=== PATIENT | male | born 1965 | race Caucasian/White ===

== ENCOUNTER 2021-10-05 07:50 | Outpatient (RCR) | payer OTHER, SELFPAY | END 2021-12-16 15:43 | disposition home or self-care (01) | PROVIDERS: PCP Family Medicine; Visit Provider Family Medicine | DX: M25.511 Pain in right shoulder (principal); M25.512 Pain in left shoulder; Z51.89 Encounter for other specified aftercare | CPT/HCPCS: 97112; 97161 ==

== ENCOUNTER 2021-12-24 14:59 | Emergency (ER) | payer OTHER, SELFPAY ==
[2021-12-24 15:06] VITALS: BP 131/75; PULSE 68; RESP 18; TEMP 36.4; O2SAT 97; BMI 30.5
--- NOTE | 2021-12-24 15:23 | ED.GENADULT ---
HPI - General Adult General Time Seen by Provider: 15:24 Date Seen: 12/24/21 Chief complaint: Extremity Pain/Injury, Lower Stated complaint: Possible Blood Clot Time Seen by Provider: 12/24/21 15:11 Source: patient and RN notes reviewed Mode of arrival: ambulatory Limitations: no limitations History of Present Illness HPI narrative: Patient is a 56-year-old male coming in with concern of possible DVT. He had surgery for varicose veins with what sounds like to be the standard stab phlebectomy and was subsequently diagnosed with a right lower extremity superficial thrombophlebitis per report. He was told to go on aspirin and they were planning on doing a repeat ultrasound in 1 weeks time which would be tomorrow. He states there was concern that this was close to going into the deep system. He describes it at his ?main vein?. He feels that the swelling in the cord swelling/pain has increased. He has had no fevers. He has had no respiratory symptoms such as shortness of breath, difficulty breathing or any chest pain. He did recently have a cold but has no complications or any ongoing concerns with that. He is wanting a repeat ultrasound of his right lower extremity. complaint: Superficial DVT, concern for extension into DVT Related Data Home Medications Medication Instructions Recorded Confirmed aspirin 81 mg chewable tablet 81 mg PO DAILY 09/14/21 12/07/21 multivitamin (Multiple Vitamins 1 tab PO QDAY 09/14/21 12/07/21 tablet) omega 6-ktq-wzz-fish oil 100 1 cap PO QDAY 09/14/21 12/07/21 mg-160 mg-1,000 mg capsule (Fish Oil) Previous Rx's Medication Instructions Recorded naproxen 500 mg tablet 500 mg PO BID #60 tabs 09/15/21 Allergies Allergy/AdvReac Type Severity Reaction Status Date / Time penicillin V Allergy Mild Urticaria, Verified 12/07/21 09:35 numb lips cephalexin AdvReac Intermediate Tiredness Verified 12/07/21 09:35 maple tree buds Allergy Mild Sneezing, Uncoded 12/07/21 09:35 other Review of Systems Status of ROS: Reports: 6 or more systems reviewed and unremarkable except as noted in History and below [facility] Medical History (Updated 12/24/21 @ 17:02 by Tana Holder MD) Dyslipidemia Hearing loss Tubular adenoma of colon (2018) Surgical History (Updated 12/07/21 @ 10:11 by Joni Reid MD) History of arthroscopy of left knee History of colonoscopy History of nasal septoplasty (2000) History of toe surgery History of varicose vein ligation (2010) Family History (Updated 09/08/21 @ 16:16 by Radha Nieto) Maternal Grandfather Stroke Mother Colon cancer, Onset Age: 78 Non-Hodgkin's lymphoma Son Heart disease Other Skin cancer Social History (Updated 09/08/21 @ 16:17 by Radha Nieto) Narrative: Exercises daily- physical work, free weights, sit ups , 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, 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 Non-smoker Rarely consumes alcohol Smoking Status: Never smoker Do you use any of these nicotine containing products: None Second hand tobacco smoke exposure: No How often do you have a drink containing alcohol: never How often do you have six or more drinks on one occasion: Never AUDIT-C Alcohol total score: 0 Non-prescribed substance use: denies use Exam Const: Vital Signs, click to edit/add: Vital Signs - 24 hr 12/24/21 15:06 Temperature 97.6 F Pulse Rate [Right Pulse Oximeter] 68 Respiratory Rate 18 Blood Pressure [Ri ght Upper Arm] 131/75 Pulse Oximetry 97 Oxygen Delivery Me thod Room Air Documenting provider has reviewed patient's vital signs: yes Common normals: no apparent distress, oriented x3, no limitations, healthy appearing, alert and well nourished General appearance: cooperative, comfortable and well kempt HENMT: Common normals: normocephalic and head/scalp atraumatic Head and scalp: normocephalic and atraumatic Eye: Common normals: PERRL, EOMs intact bilaterally, conjunctivae normal and no scleral icterus Conjunctiva: conjunctiva(e) normal Pupil: PERRL Neck & C-Spine: Common normals: no JVD Resp: Common normals: normal respiratory effort, no retractions, no use of accessory muscles and clear to auscultation bilaterally Auscultation: clear to auscultation bilaterally Cardio: Common normals: no JVD, regular rate, regular rhythm, S1 normal heart sound, S2 normal heart sound, no gallops, no clicks and no murmurs Rate: regular rate Rhythm: regular rhythm Heart sounds: S1 normal and S2 normal Extremity: Other: He has a palpable superficial cord in the right medial mid thigh. He has no calf tenderness, negative Homans sign. Right lower extremity looks to be a little bit more swollen than the left but not pitting edema. He has multiple small scabs scattered throughout both his lower extremities, none with concerning erythema or any evidence of any secondary infection. Neuro: Common normals: oriented x3 Sensorium/orientation: alert Psych: Appearance: well kempt Course Reevaluation(s) Reevaluation #1: Reviewed ultrasound with patient. Patient had a radiofrequency ablation of the greater saphenous before on the right leg. That was about 10 years ago. He did pull up his ultrasound report from Tuesday and the occlusion of the greater saphenous into the common femoral was there. His right lower extremity is only showing superficial thrombophlebitis, no DVT. He has no acute DVT. Time: 17:00 Vital Signs Vital signs: Initial Vital Signs Temperature 97.6 F 12/24/21 15:06 Temperature Source Temporal Artery Scan 12/24/21 15:06 Pulse Rate 68 12/24/21 15:06 Respiratory Rate 18 12/24/21 15:06 Blood Pressure 131/75 12/24/21 15:06 Blood Pressure Mean 93 12/24/21 15:06 Blood Pressure Position Sitting 12/24/21 15:06 Pulse Oximetry 97 12/24/21 15:06 Oxygen Delivery Method 12/24/21 15:06 Vital Signs Temperature 97.6 F 12/24/21 15:06 Pulse Rate 68 12/24/21 15:06 Respiratory Rate 18 12/24/21 15:06 Blood Pressure 131/75 12/24/21 15:06 Pulse Oximetry 97 12/24/21 15:06 Oxygen Delivery Method 12/24/21 15:06 Temperature 97.6 F 12/24/21 15:06 Pulse Rate 68 12/24/21 15:06 Respiratory Rate 18 12/24/21 15:06 Blood Pressure 131/75 12/24/21 15:06 Pulse Oximetry 97 12/24/21 15:06 Oxygen Delivery Method 12/24/21 15:06 Medical Decision Making Imaging Data Venous US: Attestation: I have reviewed the pertinent imaging results. Radiologist's impression: Patient: [facility] Facility:[facility] Patient ID:?[id number] :?1965 Study:?US Extremity Right LEV-12/24/2021 4:15:55 PM Ordering Physician:Helen Fajardo Final Report: INDICATION: Right calf pain. Stab phlebectomies of the right calf 1 week ago. Remote history of treatment of the GSV. COMPARISON: None available. TECHNIQUE: A compression venous ultrasound exam was performed of the right lower extremity using espinoza-scale imaging, color Doppler and spectral Doppler analysis. FINDINGS: Sonographic imaging of the right lower extremity demonstrates normal compressibility and color Doppler venous blood flow within the femoral and deep femoral veins. At a lower level, the popliteal, peroneal, and posterior tibial veins also show normal compressibility and color Doppler venous blood flow. There is thrombus throughout the right greater saphenous vein in the thigh with a 1.4 cm segment of thrombus extending into the common femoral vein. Multiple thrombosed superficial varicosities in the right anterior calf. Limited imaging of the contralateral groin demonstrates a normal spectral waveform and color Doppler venous blood flow within the left common femoral vein. IMPRESSION: 1. Thrombosed right greater saphenous vein in the thigh, with a 1.4 cm segment of thrombus extending into the common femoral vein. 2. Multiple thrombosed superficial varicosities in the right anterior calf. 3. No other evidence of acute DVT in the right lower extremity. 4. Findings discussed with Domitila Leung at 4:37 p.m. on 12/24/2021. Dictated by Latonya Krishnamurthy MD @ 12/24/2021 4:34:52 PM (Electronic Signature) Critical Care Time Critical Care Time Critical Care Time: No Discharge Plan Discharge Clinical Impression: Postoperative superficial thrombophlebitis of lower extremity Condition: Stable Instructions: Superficial Thrombophlebitis (ED) Additional Instructions: Continue on aspirin and continue your postoperative instructions per your surgeon. Contact your surgeon in the morning and see if the knee due to have the ultrasound done tomorrow or if they are okay with the report from our ultrasound done this evening. Follow activity restrictions/instructions as per your surgeon. Prescriptions: No Action aspirin 81 mg tablet,chewable 81 mg PO DAILY multivitamin [Multiple Vitamins] Tablet 1 tab PO QDAY Fish Oil 100-160-1,000 mg capsule 1 cap PO QDAY naproxen 500 mg tablet 500 mg PO BID Qty: 60 5RF Follow Up/Referrals: Joni Reid MD [Primary Care Provider] - Stand Alone Forms: [employer] Info Instructions
--- NOTE | 2021-12-24 15:27 | CRLHL7_ITS ---
For Patients: As a result of the Century Cures Act, medical imaging exams and procedure reports are released immediately into your electronic medical record. You may view this report before your referring provider. If you have questions, please contact your health care provider. INDICATION: Right calf pain. Stab phlebectomies of the right calf 1 week ago. Remote history of treatment of the GSV. COMPARISON: None available. TECHNIQUE: A compression venous ultrasound exam was performed of the right lower extremity using espinoza-scale imaging, color Doppler and spectral Doppler analysis. FINDINGS: Sonographic imaging of the right lower extremity demonstrates normal compressibility and color Doppler venous blood flow within the femoral and deep femoral veins. At a lower level, the popliteal, peroneal, and posterior tibial veins also show normal compressibility and color Doppler venous blood flow. There is thrombus throughout the right greater saphenous vein in the thigh with a 1.4 cm segment of thrombus extending into the common femoral vein. Multiple thrombosed superficial varicosities in the right anterior calf. Limited imaging of the contralateral groin demonstrates a normal spectral waveform and color Doppler venous blood flow within the left common femoral vein. IMPRESSION: 1. Thrombosed right greater saphenous vein in the thigh, with a 1.4 cm segment of thrombus extending into the common femoral vein. 2. Multiple thrombosed superficial varicosities in the right anterior calf. 3. No other evidence of acute DVT in the right lower extremity. 4. Findings discussed with Domitila Leung at 4:37 p.m. on 12/24/2021. Dictated by Latonya Krishnamurthy MD @ 12/24/2021 4:34:52 PM (Electronically Signed)
--- OUTSIDE RECORDS SUMMARY | 2021-12-24 15:40 | XMS_ITS | Clinical Summary ---
:1965 Author Organization [facility] [place] [address] Care Team Providers Name Role Phone Joni Reid MD Primary Care Provider [phone] Allergies Active Allergy Reactions Severity Noted Date Comments Amoxicillin Edema 08/19/2011 Pt gets facial edema and numbness Cephalexin *Unknown 07/02/2021 Drowsy for 3 da ys Unlisted Allergen Other - Describe In 02/05/2016 Dig estive issues (Include Detail In Comment Field Comments) Medications Medication Sig Dispensed Refills Start Date End Date Status multivitamin (MVI) Take 1 tablet by 0 08/19/2011 Active tablet mouth once daily. CrutchIndications: For home use. 2 Each 0 07/03/2021 Active Complex tear of medial meniscus of left knee as current injury, initial encounter acetaminophen Take 1-2 Tablets 60 Tablet 1 07/03/2021 Active (TYLENOL EXTRA (500-1,000 mg) by STRGTH) 500 mg mouth every 6 hours tabletIndications: if needed for Pain. Complex tear of Max acetaminophen medial meniscus of dose: 4000mg in 24 left knee as current hrs. injury, initial encounter oxyCODONE Take 1-2 Tablets 20 Tablet 0 07/03/2021 Ac tive (ROXICODONE) 5 mg (5-10 mg) by mouth immediate release every 4 hours if tabletIndications: needed for Pain. Complex tear of medial meniscus of left knee as current injury, initial encounter Active Problems Problem Noted Date Venous insufficiency right leg 08/19/2011 Venous stasis dermatitis right leg 08/19/2011 Family History Medical History Relation Name Comments Cancer-colon Mother Relation Name Status Comments Mother Social History Tobacco Use Types Packs/Day Years Used Date Never Smoker Smokeless Tobacco: Never Used Tobacco Cessation: Counseling Given: Yes Alcohol Use Standard Drinks/Week Comments Yes 0 (1 standard drink = 0.6 oz pure alcoho l) very little Alcohol Habits Answer Date Recorded How often do you have a drink containing alcohol? Not asked How many drinks containing alcohol do you have on a Not aske d typical day when you are drinking? How often do you have six or more drinks on one occasion? No t asked Comment: very little 02/05/2016 Sex Assigned at Date Recorded Not on file Obstetrics History Last Filed Vital Signs Vital Sign Reading Time Taken Comments Blood Pressure 142/86 07/04/2021 6:53 PM CDT Pulse 61 07/04/2021 6:53 PM CDT Temperature 36.5 ??C (97.7 ??F) 07/04/2021 5:32 PM CDT Respiratory Rate 16 07/04/2021 6:53 PM CDT Oxygen Saturation 96% 07/04/2021 6:53 PM CDT Inhaled Oxygen Concentration - - Weight 104.3 kg (230 lb) 07/04/2021 5:32 PM CDT Height 182.9 cm (6') 07/04/2021 5:32 PM CDT Body Mass Index 31.19 07/04/2021 5:32 PM CDT Plan of Treatment Health Maintenance Due Date Last Done Comments Tdap 07/21/1978 Depression screening for age 12+ 1979 Hepatitis C screening for age 0507/21/1985 18-79 Tetanus booster 1987 Colonoscopy through age 75 07/21/2012 Lipids for age 45-75 07/21/2012 BMI (ht and wt on same day) for 02/04/2017 02/05/2016 age 18+ Zoster (shingles) series for age 0507/21/2017 50+ (1 of 2) COVID-19 vaccine series (5 - 08/03/2021 06/08/2021, 021, Booster for Moderna series) 06/06/2020, Addition al history exists Influenza for age 50-64 10/22/2021 Results Not on filefrom Last 3 Months Insurance Payer Benefit Plan / Subscriber ID Effective Dates Phone Addre ss Type Group [facility] [id number] 2018-Present [address] [address] [place] [address] Advance Directives Latest Code Status on File Code Status Date Activated Date Inactivated Comments Full Code 07/03/2021 7:41 AM 07/03/2021 1:28 PM Admitted for surgical management, assume full code during operative period Code Status Discussion: Not Discussed Care Teams Hearing Aid Specialist Relationship Specialty Start Date End Date Joni Reid MD PCP - General Family Practice 06/25/211999 [place] [address]
--- OUTSIDE RECORDS SUMMARY | 2021-12-24 15:41 | XMS_ITS | Encounter Summary ---
:1965 Author Organization [facility] Address [address] [place] [address] Care Team Providers Name Role Phone Non Pn, Clinician MD Primary Care Provider Unavailable Reason for Visit Reason Comments Post Op Exam Left knee Encounter Details Date Type Department Care Team Description 07/13/2021 Office Visit [facility] Antonio Phelan, Postop check (Primary Orthopaedics & Sports MD Dx) Medicine [address] [place] [address] [place] [id number] Social History Tobacco Use Types Packs/Day Years Used Date Smoking Tobacco: Never Sex Assigned at Date Recorded Not on file documented as of this encounter Progress Notes Antonio Phelan MD - 07/13/2021 12:00 AM CDT NAME: ROLF SANTIAGO CSN: [id number] CLINIC NOTE DATE OF SERVICE: 07/13/2021 : 1965 Orthopedic Surgery Postoperative Visit PROCEDURE PERFORMED: Left knee arthroscopy and partial medial meniscectomy. DATE OF OPERATION: 07/03/2021 INTERVAL HISTORY: The patient presents today as an unexpected walk-in for left knee pain. His [facility], and due to some swelling, he was hoping to be seen today. The patient did have some drainage from his incision site for the 1st 24 hours after surgery at [facility]. It has since then been dry. He denies any fevers or chills. He thinks that over the weekend, his knee has gotten more swollen and he has had a difficult time bending it. He has been ableto bear weight without difficulty. His wound has been dry. He denies any erythema. EXAM: The patient is alert, oriented, in no acute distress. He has nonlabored breathing at rest. On examination of the patient's left knee, he has some scarring over his anterior medial portal site, but no tenderness to palpation of this area, no erythema and no drainage. His lateral portal site is normal. He has range of motion from 2 degrees to 120 degrees with pain, actively to approximately 100 degrees prior to onset of pain. He has mild medial and lateral joint line tenderness to palpation. He is able to perform a straight leg raise with a 5-degree extensor lag. He is able to bear weight with no discomfort. He has 2+ medial and lateral patellar glide with a negative patellar grind test. He has a moderate effusion. ASSESSMENT: A 55-year-old male with scarring over his medial portal site and activity-related postoperative effusion. I have no concerns for infection based on today's clinical exam and his history. PLAN: I discussed with the patient his above diagnosis and treatment options. I have recommended we initiate some Aleve to help with the swelling. He will also ice and elevate his leg as much as possible for the next 3-5 days to help calm down his knee. I suspect that his increase in pain is activity-related. He will continue with physical therapy. He will follow up with me at the 6 week postoperative visit, sooner if any concerns arise. Warning signs were provided. MD STEPHANIE TINOCO/CRUZ /[id number] documented in this encounter Plan of Treatment Upcoming Encounters Date Type Specialty Care Team Description 12/25/2021 Appointment Vascular Surgery Gloria Quinones MD [id number] [facility] [address] [id number] (Wo rk) 12/25/2021 Appointment Vascular Surgery Nurse, [id number] Vsurg documented as of this encounter Visit Diagnoses Diagnosis Postop check - Primary Follow-up examination, following unspeci fied surgery documented in this encounter Care Teams Car Electronics Installer Relationship Specialty Start Date End Date Non Pn, Clinician, PCP - General 05/20/21 [place] [address] documented as of this encounter
--- OUTSIDE RECORDS SUMMARY | 2021-12-24 15:41 | XMS_ITS | Encounter Summary ---
:1965 Author Organization [facility] Address [address] [place] [address] Care Team Providers Name Role Phone Non Pn, Clinician MD Primary Care Provider Unavailable Reason for Referral Procedure/Equipment (Routine) - Incomplete Specialty Diagnoses / Procedures Referred By Contact Refer red To Contact Diagnoses Varicose veins of both lower extremities with complications Paulina Gutierrez, Procedures VL US Lower Extremity Bilat Venous Reflux [facility] [address] [place], [place] [address] Referral ID Status Reason Start Date Expiration Date Visits V isits Requested Authorized [id number] Incomplete 09/21/2021 12/21/2022 1 1 Reason for Visit Procedure/Equipment (Routine) - Incomplete Specialty Diagnoses / Procedures Referred By Contact Refer red To Contact Diagnoses Varicose veins of both lower extremities with complications Paulina Gutierrez, Procedures VL US Lower Extremity Bilat Venous Reflux [facility] [address] [place], [place] [address] Referral ID Status Reason Start Date Expiration Date Visits V isits Requested Authorized [id number] Incomplete 09/21/2021 12/21/2022 1 1 Encounter Details Date Type Department Care Team Description 11/09/2021 Hospital Encounter Heart & Vascular Paulina Gutierrez Varicose veins of Center Vascular LUCY Yeager CNP both lower Lab [address] [facility] [place] [place], [address] [place] [address] Social History Tobacco Use Types Packs/Day Years Used Date Smoking Tobacco: Never Sex Assigned at Date Recorded Not on file documented as of this encounter Medications at Time of Discharge Medication Sig Dispensed Refills Start Date End Date acetaminophen (TYLENOL) 500 Take 500-1,000 mg by 0 07/03/2021 MG tablet mouth. naproxen (NAPROSYN) 500 MG Take 1 Tablet (500 60 Tablet 1 0 07/13/2021 tablet mg) by mouth two times daily as needed for Pain. traMADol (ULTRAM) 50 MG Take 1 Tablet (50 10 Tablet 0 12/14 tablet mg) by mouth every 6 hours as needed. UNKNOWN MEDICATION Indications: PN: 0 06/14/2006 documented as of this encounter Plan of Treatment Upcoming Encounters Date Type Specialty Care Team Description 12/25/2021 Appointment Vascular Surgery Gloria Quinones MD [address] [place] [id number] (Wo rk) 12/25/2021 Appointment Vascular Surgery Nurse, [id number] Jason documented as of this encounter Procedures Procedure Name Priority Date/Time Associated Diagnosis Comme nts [facility] LOWER Routine 11/09/2021 9:10 AM Varicose veins of both Results for this EXTREMITY BILAT CDT lower extremities with pr ocedure are in VENOUS REFLUX complications the results section. 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 Right popliteal vein incompetence. Chronic non-occlusive superficial thromb ophlebitis within the right great saphenous vein at the proximal thigh and in a varicose vein at the mid thigh. Left saphenofemoral junction incompetenc e. Left common femoral, femoral and poplite al vein incompetence. There are multiple incompetent varicosit ies within the right and left lower extremities. No evidence of right or left lower extre mity deep vein thrombosis. Narrative 11/11/2021 7:32 AM CDT Indication: Varicose veins History of right great saphenous vein ra diofrequency ablation at outside facility. A duplex ultrasound study using Doppler was performed, to evaluate the bilateral lower extremity veins for valv ular incompetence with the patient in a reverse Trendelenburg position. RIGHT LOWER EXTREMITY The great saphenous vein diameters: saph enofemoral junction: 7.9mm, immediately after the saphenofemoral denny ction: 8.7mm, proximal thigh: 4.0mm, proximal calf: 2.6mm. The great s aphenous vein is incompetent from the saphenofemoral junction to the proxi mal thigh. The time of incompetence is greater than 500 millise conds in length. The great saphenous vein is absent from the mid th igh to the knee. There is evidence of chronic non-occlusi ve superficial thrombophlebitis within the great saphenous vein at the p roximal thigh. There is a competent posterior accessory great saphenous vein (3.4mm) draining into the saphenofemoral junctio n. The small saphenous vein at the proximal calf measures 3.1mm. The small saphenous vein is competent in its entir ety. There is no evidence of incompetent perf orator veins at any level. There is evidence of multiple incompeten t varicose veins with the largest measuring 9.0mm. The time of incompetenc e is greater than 500 milliseconds. There is evidence of chronic non-occlusi ve superficial thrombophlebitis within a varicose vein at the mid thigh. The small saphenous vein is fully compre ssible with no evidence of thrombus. The gastrocnemius veins were segmentally visualized and are fully compressible where seen. The popliteal vein is incompetent and fr ee of thrombus. The remainder of the deep venous system is competent and free of thrombus. LEFT LOWER EXTREMITY The great saphenous vein diameters: saph enofemoral junction: 7.2mm, immediately after the saphenofemoral denny ction: 6.8mm, proximal thigh: 4.0mm, knee: 2.9mm. The saphenofemoral j unction is incompetent. The time of incompetence is greater than 500 mill iseconds in length. The remainder of the great saphenous vein is competent . There is a competent anterior accessory great saphenous vein (3.1mm) draining into the saphenofemoral junctio n. The small saphenous vein diameters: saph enopopliteal junction: 2.3mm, immediately after the saphenopopliteal j unction: 2.6mm. The saphenopopliteal junction and small saph enous vein are both competent. There is no evidence of incompetent perf orator veins at any level. There is evidence of multiple incompeten t varicose veins with the largest measuring 6.7mm. The time of incompetenc e is greater than 500 milliseconds. The great and small saphenous veins are fully compressible with no evidence of thrombus. The gastrocnemius veins were segmentally visualized and are fully compressible where seen. The common femoral, femoral and poplitea l veins are incompetent and free of thrombus. The remainder of the deep v enous system is competent and free of thrombus. Paulina Gutierrez [employer], SOCIAL PSYCHOLOGIST RAD VASCULAR US documented in this encounter Visit Diagnoses Diagnosis Varicose veins of both lower extremities with complications documented in this encounter Care Teams Golf Sales Manager Relationship Specialty Start Date End Date Non Pn, Clinician, PCP - General 05/20/21 [place] [address] documented as of this encounter
--- OUTSIDE RECORDS SUMMARY | 2021-12-24 15:41 | XMS_ITS | Encounter Summary ---
:1965 Author Organization [employer] [facility] Address [address] [place] [address] Care Team Providers Name Role Phone Non Pn, Clinician MD Primary Care Provider Unavailable Encounter Details Date Type Department Care Team Description 07/21/2021 Notes/Orders [facility] - Thomas Mccallum, PT Physical Therapy [address] [facility] [address] [place] [address] [place] [address] [phone] Social History Tobacco Use Types Packs/Day Years Used Date Smoking Tobacco: Never Sex Assigned at Date Recorded Not on file documented as of this encounter Progress Notes Thomas Mccallum, PT - 07/21/2021 11:59 PM CDT [facility] Discharge Summary Rolf Santiago has not attended therapy since last documented visit. There are no further visits scheduled at this time and Rolf is currently considered discharged from therapy. Unable to assess current level of function and goals due to unplanned discharge. PT - Discharge Total Visits: 3 Reason for discharge: Patient has not been consistent with attendance and/or failed to schedule appointments as planned. Please see previous visit documentation of status at last treatment. Thomas Mccallum PT documented in this encounter Plan of Treatment Upcoming Encounters Date Type Specialty Care Team Description 12/25/2021 Appointment Vascular Surgery Gloria Quinones MD [address] [facility] [place] [id number] (Wo rk) 12/25/2021 Appointment Vascular Surgery Nurse, [id number] Vsurg documented as of this encounter Visit Diagnoses Not on filedocumented in this encounter Care Teams Genetic Counsellor Relationship Specialty Start Date End Date Non Pn, Clinician, PCP - General 05/20/21 [place] [address] documented as of this encounter
--- OUTSIDE RECORDS SUMMARY | 2021-12-24 15:41 | XMS_ITS | Encounter Summary ---
:1965 Author Organization [facility] Address [address] [place] [address] Care Team Providers Name Role Phone Non Pn, Clinician MD Primary Care Provider Unavailable Reason for Visit Auth/Cert (Routine) Specialty Diagnoses / Procedures Referred By Contact Refer red To Contact Diagnoses Varicose veins of both lower extremities with complications Procedures RIGHT GREAT SAPHENOUS VEIN RADIOFREQUENCY ABLATION VEINS WITH BILATERAL AVULSION Referral ID Status Reason Start Date Expiration Date Visits Requ ested Visits Authorized [id number] 1 1 Encounter Details Date Type Department Care Team Description 12/14/2021 Anesthesia Event [facility] [place] [address] [id number] [phone] Anesthesia Record Procedure Summary Procedure Name Responsible Anesthesia Start Anesthesia Stop Anesthesiologist Time Time RIGHT GREAT SAPHENOUS Melvin Dickey MD 12/14/21 1303 1421 VEIN RADIOFREQUENCY ABLATION VEINS WITH BILATERAL AVULSION (Bilateral: Leg) Events Date Time Event Comment 12/14/2021 1200 1303 An Start 1303 An Start Data 1303 Face Tent 1305 MD/DO Present 1310 MD/DO Present 1353 MD/DO Present 1415 an stop data 1415 MD/DO Present 1421 Care Handoff Note I discussed wi th the receiving nurse and we: 1) Identified the p atient, braga family member(s) or patient surrogat e 2) Identified the responsible practitioner 3) Reviewed the pertinent medical history 4) Discu ssed the surgical/procedure course 5) Reviewed intr a-op anesthesia management and issues during an esthesia 6) Set expectations for the post-procedu re period 7) Allowed opportunity for questions an d acknowledgement of understanding of report Electr onically signed by Caryl Fiore APRN, PRODUCT MARKETING MANAGER 1421 An Stop Care transferred . Name Total midazolam injection 2 mg/2 mL (VERSED) 2 mg fentaNYL injection (SUBLIMAZE) 100 mcg propofol 10 mg/mL for procedural sedation (aka diPRIva n) 231.54 mg ondansetron injection (ZOFRAN) 4 mg lidocaine PF 1 % injection 1 mL chloroprocaine 3% 1.8 mL ceFAZolin (ANCEF) 2 g in sodium chloride 0.9 % 50 mL I VPB 2 g dexamethasone 4 mg/mL injection (DECADRON) 4 mg lactated ringers infusion 1,000 mL Agents Name O2 Identified Agent Name Blood No blood administrations on file. Lines, Drains, and Airways Type Details Placement Removal Peripheral IV Placement Date: 12/14/21 1135 by 12/14/21 1527 b y 12/14/21; Placement Lila Umana RN Kruese l, Bailey N, Time: 113; RN Pre-existing: No; Inserted by?: RN; Size (Gauge): 20 G; Orientation: Left; Site Prep: ChloraPrep; Insertion attempts: 1; Blood draw with insertion?: no; Patient Tolerance: Tolerated well; Removal Date: 12/14/21; Removal Time: 152; Removal Reason: Patient discharged; Catheter Tip: Intact Incision/Surgical Site 12/14/21; 1332; #1; 12/14/21 1332 by 11/22 06/12 1526 by Roseanne; Thigh; Anterior, Rosemary Barrientos RN Krues el, Bailey N, Right; 12/14/21; 1526 RN Incision/Surgical Site 12/14/21; 1340; #2; 12/14/21 1340 by 11/22 06/12 1526 by No; Pretibial; Right; Rosemary Barrientos RN Krue sel, Bailey N, 12/14/21; 1526 RN Incision/Surgical Site 12/14/21; 1340; #3; 12/14/21 1340 by 11/22 06/12 1526 by Roseanne; Pretibial; Left; Rosemary Barrientos RN Zofia Echevarria, 12/14/21; 1526 RN documented in this encounter Social History Tobacco Use Types Packs/Day Years Used Date Smoking Tobacco: Never Sex Assigned at Date Recorded Not on file documented as of this encounter Miscellaneous Notes Anesthesia Postprocedure Evaluation - Melvin Dickey MD - 12/14/2021 3:09 PM CDT [facility] Anesthesia Post-op Note Patient: Rolf Santiago Post-Op Diagnosis: Varicose veins of both lower extremities with complications Procedure Performed: Procedure(s): Bilateral - RIGHT GREAT SAPHENOUS VEIN RADIOFREQUENCY ABLATION VEINS WITH BILATERAL AVULSION - WoundClass: 1 CLEAN Anesthesia Type: Spinal Post-op vital signs: Vitals Value Taken Time BP 137/88 12/14/21 1501 Temp 36.6 ??C (97.9 ??F) 12/14/21 1430 Pulse 51 12/14/21 1508 Resp 16 12/14/21 1445 SpO2 97 % 12/14/21 1508 Vitals shown include unvalidated device data. Pain Score: Preferred Pain Scale: number (Numeric Rating Pain Scale) (0-10) Pain Rating: Rest: 0 (0-10) Pain Rating: Activity: 0 Post-op assessment: No anesthesia complication. Patient location: Phase 2 Airway Status: Patent Cardiovascular function: Satisfactory Hydration status: Satisfactory PONV: None Level of Consciousness: Awake Fully Participates Postop Assessment: Patient tolerated procedure well. Electronically signed by: Melvin Dickey MD 12/14/2021 3:09 PM Anesthesia Procedure Notes - Caryl Fiore, RN PRIMARY CARE, PRODUCT MARKETING MANAGER - 12/14/2021 1:10 PM CDT Associated Order(s): Spinal Block Spinal Block Performed by: Melvin Dickey MD Authorizing/Supervising provider: Melvin Dickey MD Block Start: 12/14/2021 1:05 PM Block end: 12/14/2021 1:09 PM Performed by: Anesthesiologist Patient Location OR Checklist: risks and benefits discussed, IV checked, anesthesia consent, monitors and equipment checked, patient identified and pre-op evaluation Patient Position: sitting Sterile prep: Betadine, Sterile gloves, Mask and Hat Insertion site: L2-3 Approach: left paramedian Needle type: Payton Needle gauge: 25 G Needle length: 3.5 in Introducer needle used Attempts: 2 Monitoring: compliance monitor and continuous pulse ox CSF: adequate CSF flow from spinal needle and CSF clear Paresthesias: No Baricity: Hyperbaric Events: None Complications: none Pt tolerated procedure well Notes: Mariam Dickey MD Procedure site infiltration with 2 mL of lidocaine 1% Signed by anesthesiologist of record who affirms this using a Present at Induction attestation Medications from procedure kit: lidocaine PF 1 % injection - Subcutaneous 1 mL - 12/14/2021 1:07:00 PM Medications used that are not from kit? Yes Local anesthetic: Chloroprocaine 3% - Intrathecal 1.8 mL - 12/14/2021 1:09:00 PM Anesthesia Preprocedure Evaluation - Melvin Dickey MD - 12/14/2021 12:11 PM CDT [facility] Anesthesia Pre-op Evaluation Procedure: RIGHT GREAT SAPHENOUS VEIN RADIOFREQUENCY ABLATION VEINS WITH BILATERAL AVULSION, Bilateral HPI: 56 y.o. old male with Varicose veins of both lower extremities with complications Allergies Allergen Reactions ??? Amoxicillin Edema,generalized Pt gets facial edema and numbness ??? Inhaled Anticholinergic Agents Other, see comments Digestive issues No past medical history on file. Patient Active Problem List Diagnosis ??? Varicose veins of both lower extremities with complications No past surgical history on file. Outpatient Medications as of 12/14/2021 Medication Sig ??? acetaminophen (TYLENOL) 500 MG tablet Take 500-1,000 mg by mouth. ??? naproxen (NAPROSYN) 500 MG tablet Take 1 Tablet (500 mg) by mouth two times daily as needed for Pain. ??? UNKNOWN MEDICATION Indications: PN: Facility-Administered Medications as of 12/14/2021 Medication Dose Route Frequency ??? bacitracin 500 UNIT/GM ointment Topical TID ??? ceFAZolin (ANCEF) 2 g in sodium chloride 0.9 % 50 mL IVPB 2 g Intravenous Once ??? fentaNYL (SUBLIMAZE) injection 25-50 mcg 25-50 mcg Intravenous Q5MIN PRN ??? HYDROmorphone (DILAUDID) injection 0.2-0.3 mg 0.2-0.3 mg Intravenous Q10MIN PRN ??? lactated ringers infusion 25 mL/hr Intravenous Continuous ??? lidocaine 1 mg/mL-sodium bicarbonate 0.01 mEq/mL in 0.9% sodium chloride 1000 mL Injection Once ??? lidocaine PF (XYLOCAINE) 1 % injection 0.1-0.3 mL 0.1-0.3 mL Intradermal Once And ??? lidocaine PF (XYLOCAINE) 1 % injection 0.1-0.3 mL 0.1-0.3 mL Intradermal PRN ??? meperidine (DEMEROL) injection 12.5 mg 12.5 mg Intravenous Q5MIN PRN ??? naloxone (NARCAN) injection 0.08 mg 0.08 mg Intravenous PRN ??? naloxone (NARCAN) injection 0.4 mg 0.4 mg Intravenous ONCE PRN ??? ondansetron (ZOFRAN) injection 4 mg 4 mg Intravenous Q4H PRN ??? sodium bicarbonate injection 50 mEq 50 mEq Intravenous Once ??? sodium chloride 0.9% injection 10 mL 10 mL Intravenous PRN See Admin Labs: No results found for: SODIUM, K, CHLORIDE, CO2, BUN, CREATININE, GLUCOSE Lab Results Component Value Date/Time HGB 15.3 02/28/2001 02:40 PM No results found for: INR Blood Bank: No results found for: ABO, ABSCR EKG: No results found for this or any previous visit. Physical Exam: BP (!) 165/98 Temp 36.5 ??C (97.7 ??F) Resp 18 SpO2 97% Assessment/Plan: Review of Systems NPO Status: Acceptable. Patient does not have GERD. Patient is not a current smoker. The patient denies alcohol use. Patient denies any recent URI. History of PONV: No. History of motion sickness: No. Patient denies any personal or family history of anesthesia complications. Exam Mental Status: Alert and oriented. Mallampati score: III (Three). Mouth opening: Normal Thyromental Distance: > 3 finger breadths and Normal Neck Extension: Full Neck Circumference > 40 cm?: No Airway assessment: Unknown. Current airway assessment:Normal Cardiac Exam: Regular rate and rhythm. Respiratory Exam: Breath sounds clear to auscultation Assessment ASA Status: 2 . Plan Anesthesia type: Spinal Induction: Maintenance: TIVA Postoperative pain management: Plan for postoperative opioid use PONV Risk Score Adult: 2 PONV Prophylaxis (planned): Ondansetron and Decadron Anesthetic plan, risks, benefits and alternatives discussed with: Patient or Economics Teacher agree tothe anesthesia treatment plan and Patient. H&P Reviewed and Patient examined, no change observed IV access Antibiotics per surgery Electronically signed by: Melvin Dickey MD 12/14/2021 12:11 PM documented in this encounter Plan of Treatment Upcoming Encounters Date Type Specialty Care Team Description 12/25/2021 Appointment Vascular Surgery Gloria Quinones MD [address] [facility] [id number] (Wo rk) 12/25/2021 Appointment Vascular Surgery Nurse, [id number] Vsurg documented as of this encounter Procedures Procedure Name Priority Date/Time Associated Diagnosis Comme nts SPINAL BLOCK Routine 12/14/2021 1:10 PM Results f or this CDT procedure are i n the results section . documented in this encounter Results Spinal Block (12/14/2021 1:10 PM CDT) Narrative EXTERNAL RESULTS - 12/14/2021 1:10 PM CD T Caryl Fiore APRN PRODUCT MARKETING MANAGER ? 12/14/2021 ??1:12 PM Spinal Block Performed by: Melvin Dickey MD Authorizing/Supervising provider: ??Melvin Ba MD Block Start: 12/14/2021 1:05 PM Block end: 12/14/2021 1:09 PM Performed by: Anesthesiologist Patient Location OR Checklist: risks and benefits discussed, IV checked, anesthesia consent, monitors and equipment checked, patient identified and pre-op evaluation Patient Position: sitting Sterile prep: Betadine, Sterile gloves, Mask and Hat Insertion site: L2-3 Approach: left paramedian Needle type: Payton Needle gauge: 25 G Needle length: 3.5 in Introducer needle used Attempts: 2 Monitoring: compliance monitor and continuo us pulse ox CSF: ??adequate CSF flow from spinal nee dle and CSF clear Paresthesias: ??No Baricity: ??Hyperbaric Events: None Complications: none Pt tolerated procedure well Notes: Mariam Dickey MD Procedure site infiltration with 2 mL of lidocaine 1% Signed by anesthesiologist of record who affirms this using a Present at Induction attestation Medications from procedure kit: lidocain e PF 1 % injection - Subcutaneous 1 mL - 12/14/2021 1:07:00 PM Medications used that are not from kit? ??Yes Local anesthetic: ??Chloroprocaine 3% - Intrathecal 1.8 mL - 12/14/2021 1:09:00 PM Melvin Ledesma MD ANESTHESIA/AR Performing Organization Address City/State/ZIP Code Phon e Number EXTERNAL RESULTS documented in this encounter Visit Diagnoses Not on filedocumented in this encounter Administered Medications Inactive Administered Medications - up to 3 most recent administrations Medication Order MAR Action Action Date Dose Rate Site ceFAZolin (ANCEF) 2 g in sodium Started 12/14/2021 1:18 PM CDT 2 g chloride 0.9 % 50 mL IVPB 2 g, Intravenous, Administer over 30 Minutes, ONCE, On Tue12/14/21 at 1130, For 1 dose, Infuse within 60 minutes prior to incision. Re-dose 1 gram IV every 4 hours after initial dose until incision closed. Re-dose if more than 1.5L of blood loss. Pharmacy may adjust for renal insufficiency., Pre-op chloroprocaine (NESACAINE) 3 % injection Given 12/14/2021 1:09 PM CDT 1.8 mL Intrathecal, Starting on Tue12/14/21 at 1309, Indications: Spinal Anesthesia dexamethasone (DECADRON) injection Given 12/14/2021 1:14 PM CDT 4 mg Intravenous, Starting on Tue12/14/21 at 1314, Until Tue12/14/21 at 1421 fentaNYL (SUBLIMAZE) injection Given 12/14/2021 1:04 PM CDT 100 mcg Intravenous, Starting on Tue12/14/21 at 1304, Until Tue12/14/21 at 1421 lactated ringers infusion Started 12/14/2021 2:05 PM CDT 25 mL/hr, Intravenous, CONTINUOUS, Starting on Tue12/14/21 at 1130, Administer on all preop surgery patients, ages 12 and older, unless specified differently in the Protocol for Preop Initiation of IV fluids Order Set., Pre-op Continue from Pre-Op 12/14/2021 1:03 PM CDT 25 mL/hr Started 12/14/2021 11:36 AM CDT 25 mL/hr 25 mL/hr lidocaine PF (XYLOCAINE) 1 % injection Given 12/14/2021 1:07 PM CDT 1 mL Subcutaneous, Starting on Tue12/14/21 at 1307 midazolam (VERSED) injection Given 12/14/2021 1:03 PM CDT 2 mg Intravenous, Starting on Tue12/14/21 at 1303, Until Tue12/14/21 at 1421 ondansetron (ZOFRAN) injection Given 12/14/2021 1:15 PM CDT 4 mg Intravenous, Starting on Tue12/14/21 at 1315, Until Tue12/14/21 at 1421 propofol (DIPRIVAN) 10 mg/mL Rate/Dose 12/14/2021 1:25 40 mcg/kg/min 24.48 injection Change PM CDT mL/hr Intravenous, Starting on Tue12/14/21 at 1314, Until Tue12/14/21 at 1421 Started 12/14/2021 1:14 PM CDT 50 mcg/kg/min 30.6 mL/hr documented in this encounter Care Teams Software Applications Specialist Relationship Specialty Start Date End Date Non Pn, Clinician, PCP - General 05/20/21 [place] [address] documented as of this encounter
--- OUTSIDE RECORDS SUMMARY | 2021-12-24 15:41 | XMS_ITS | Encounter Summary ---
:1965 Author Organization [facility] Address [address] [place] [address] Care Team Providers Name Role Phone Non Pn, Clinician MD Primary Care Provider Unavailable Reason for Visit Auth/Cert (Routine) Specialty Diagnoses / Procedures Referred By Contact Refer red To Contact Diagnoses Varicose veins of both lower extremities with complications Procedures RIGHT GREAT SAPHENOUS VEIN RADIOFREQUENCY ABLATION VEINS WITH BILATERAL AVULSION Referral ID Status Reason Start Date Expiration Date Visits Requ ested Visits Authorized [id number] 1 1 Encounter Details Date Type Department Care Team Description 12/14/2021 Hospital Encounter [facility] C TR J Luis Quinones, [address] [place] [address] [address] [place], [place] [phone] (Wo rk) Social History Tobacco Use Types Packs/Day Years Used Date Smoking Tobacco: Never Sex Assigned at Date Recorded Not on file documented as of this encounter Last Filed Vital Signs Vital Sign Reading Time Taken Comments Blood Pressure 103/63 12/14/2021 3:25 PM CDT Pulse 74 12/14/2021 3:25 PM CDT Temperature 36.6 ??C (97.9 ??F) 12/14/2021 2:30 PM CDT Respiratory Rate 16 12/14/2021 3:25 PM CDT Oxygen Saturation 100% 12/14/2021 3:25 PM CDT Inhaled Oxygen Concentration - - Weight - - Height - - Body Mass Index - - documented in this encounter Medications at Time of Discharge [...] 0 06/14/2006 documented as of this encounter Progress Notes Zofia Talamantes RN - 12/09/2021 9:17 AM CDT PPA call attempted via phone to [phone]. Message left with arrival time 1115, NPO guidelines and address. Call back number left for call back to review pre-procedure questions with a nurse. Pt reminded of COVID test 12/11. .Zofia Talamantes RN documented in this encounter H&P Notes J Luis Quinones MD - 12/14/2021 12:32 PM CDT Surgery Update for Preop History and Physical For 12/14/2021 scheduled procedure Update to H&P includes: Patient and/or family denies any health changes since the H&P This patient has been evaluated by me today and has been found to be a suitable candidate for surgery. 12/14/2021 Source Note - Antonio Phelan MD - 11/23/2021 12:00 AM CDT NAME: YANELI SANTIAGO CSN: [id number] CLINIC NOTE DATE OF SERVICE: 11/23/2021 : 1965 PROCEDURES PERFORMED: Left knee arthroscopy, extensive debridement of the anterior interval, partialmedial meniscectomy. DATE OF OPERATION: July 03, 2021. INTERVAL HISTORY: Yaneli presents today overall doing okay. He states that he has always had some pain over the lateral knee even after the surgery. He has difficult time going up and down stairs. However, over the past 1-2 months, it has slowly worsened. He has been occasionally getting some clickingover the lateral aspect of the knee. He has been taking some naproxen. He is worried that the scar tissue may be coming back. EXAM: The patient is alert, oriented, no acute distress. He has nonlabored breathing at rest. On examination of the patient's left knee, he has well-healed surgical incisions. No effusion. He has tenderness to palpation over the lateral joint line and distal IT band. No tenderness to palpation over the medial joint line. He has a negative Lyla's to varus load, negative to valgus load, range of motion from full extension to 135 degrees of flexion. IMAGING: None new. ASSESSMENT: 56-year-old male now 5 months status post the above procedure, with some recurrence of lateral knee pain and clicking. Possible considerations are progression of arthritis, recurrence of arthrofibrosis, distal IT band syndrome. PLAN: I discussed with the patient his above diagnosis and treatment options. I have recommended we initiate with conservative care, which would include consideration of a corticosteroid injection or physical therapy. At this time, the patient wishes to start with an injection. We will give this a chance to work and see how his symptoms improve over time. INJECTION: After verbal consent was obtained, the patient's left knee was sterilely prepped with alcohol and chlorhexidine. 40 mg of triamcinolone and 4 mL of 1% lidocaine plain were injected into the left knee via superolateral portal. The injection site was covered with a Band-Aid. The patient tolerated the procedure well. Greater than 20 minutes was spent on this visit including non kyid-az-lovz time. MD STEPHANIE TINOCO/CRUZ /[id number] documented in this encounter Procedure Notes J Luis Quinones MD - 12/14/2021 2:41 PM CDT NAME: Yaneli ARCHER#: [id number] OPERATIVE REPORT DATE OF OPERATION: 12/14/2021 : 1965 SURGEON: J Luis Quinones MD PREOPERATIVE DIAGNOSIS: Symptomatic varicose veins of left and right lower extremities with pain, aching, and swelling. POSTOPERATIVE DIAGNOSIS: Symptomatic varicose veins of left and right lower extremities. PROCEDURE PERFORMED: 1. Right great saphenous vein radiofrequency ablation. 2. Bilateral secondary varicose vein dissection 30 incisions right leg 11 incisions left leg. Modifier 22 for an excess number of avulsions requiring 50% more operative time to perform. SURGEON: J Luis Quinones MD ANESTHESIA: spinal DESCRIPTION OF PROCEDURE: Patient brought to the operating room and placed in a supine position. Patient underwent a spinal anesthetic. Both legs were prepped and draped in a sterile fashion. Using ultrasound guidance and Seldinger technique the left and right great saphenous veins were cannulated with 7-Greenlandic sheaths. Attention was made to the right leg. Through that right sheath the catheter was advanced up the right great saphenous vein up to the saphenofemoral junction pulled and then pulled back 4 cm. The concentration of tumescent was 93.8% of 0.9% normal saline, 5.06% of 2% lidocaine, 1.03% of 8.4% sodium bicarb, and 0.09% of 1:1000 epinephrine. Tumescent anesthetic was given around the catheter from the sheath up to the saphenofemoral junction assuring at least 1 cm depth from dermis. There were 100 mL of tumescent used around the right great saphenous vein. The catheter was activated and pulled back per protocol. Upon completion of treatment there was no flow seen in the right great saphenous vein. 3 RFcycles used, total of 60 seconds of RF time, 14 cm of vein was treated. Attention was turned to both legs for the varicosities. 11 stab incisions in the left leg were made in the Left Medial Thigh and 30 stab incisions in the right leg were made in the Right Medial Thigh, Right Lateral Thigh, Right Medial Calf, and Right Lateral Calf. Through each of these incisions a puneet hook and hemostat were used to dissect out the varicosities until avulsion occurred. Once avulsed direct pressure was applied for hemostasis. Estimated blood loss was 20 mL. Average wattage used was 8-15 trivedi. Dry sterile dressings were applied and patient returned to the recovery room in stable condition. Lap, sponge and instrument counts were correct. documented in this encounter Plan of Treatment Upcoming Encounters Date Type Specialty Care Team Description 12/25/2021 Appointment Vascular Surgery Gloria Quinones MD [address] [place] [address] (Wo rk) 12/25/2021 Appointment Vascular Surgery Nurse, [id number] Vsurg documented as of this encounter Procedures Procedure Name Priority Date/Time Associated Diagnosis Comme nts UNILATERAL RADIOFREQUENCY 12/14/2021 12:53 PM Varicose veins of both ABLATION VEINS WITH CDT lower extremities wit h BILATERAL AVULSION complications documented in this encounter Visit Diagnoses Diagnosis Varicose veins of both lower extremities with complications - Primary documented in this encounter Admitting Diagnoses Diagnosis Varicose veins of both lower extremities with complications documented in this encounter Administered Medications Inactive Administered Medications - up to 3 most recent administrations Medication Order MAR Action Action Date Dose Rate Site bacitracin 500 UNIT/GM ointment Topical, TID, First dose on Tue12/14/21 at 1400, To b e given Intra-Op, Pre-op bacitracin 500 UNIT/GM ointment Given 12/14/2021 1:46 PM CDT 60 g Wound Site ONCE PRN, Starting on Tue12/14/21 at 1346, Intra-op fentaNYL (SUBLIMAZE) injection 25-50 mcg 25-50 mcg, Intravenous, [id number], Other, 25 mcg for Mi ld to Moderate Pain (pain score 1-5), 50 mcg for Moderate to Severe Pain (pain s core 6 and above) in the immediate postop period when faster on-set, short acti ng agent is desired., Starting on Tue12/14/21 at 1144, Until Tue12/14/21 at 1736, Administer every 5 minutes as needed, to a maximum cumulati ve dose of 250 mcg. Call Anesthesiologist if additional dose needed For patients with a regional , spinal, or local anesthetic, may give for anticipated ivan n as the anesthetic wears off. Use fentanyl initially for a short acting agent for t reatment of acute post-operative pain. May be used in conjunction with a longer acting agent if o rdered for optimal pain control. Respiratory rate must be greater than 10 to a dminister medications., PACU/Recovery hydrogen peroxide 480 mL in sodium Given 12/14/2021 1:59 PM CDT Wound Site chloride for irrigation 960 mL solution ONCE PRN, Starting on Tue12/14/21 at 1359, Intra-op HYDROmorphone (DILAUDID) injection 0.2-0 .3 mg 0.2-0.3 mg, Intravenous, Q10MIN PRN, Pain, 0.2 mg IV f or Mild to Moderate pain (pain score 1-5), 0.3 mg IV for Moderate to Severe pain (pain score 6 and above) in the immediate postop period when longer acting agent is desired., Starting on Tue12/14/21 at 1144, Until Tue12/14/21 at 1736, Maximum cumulative dose is 2 mg in PACU, call Anesthesiologist if additional dosage neede d. For patients with a regional, spinal, or local anesthetic, may give for an ticipated pain as the anesthetic wears off., PACU/Recovery lactated ringers infusion Started 12/14/2021 2:05 PM CDT 25 mL/hr, Intravenous, CONTINUOUS, Starting on Tue12/14/21 at 1130, Administer on all preop surgery patients, ages 12 and older, unless specified differently in the Protocol for Preop Initiation of IV fluids Order Set., Pre-op Continue from Pre-Op 12/14/2021 1:03 PM CDT 25 mL/hr Started 12/14/2021 11:36 AM CDT 25 mL/hr 25 mL/hr lidocaine 1 mg/ml-sodium bicarbonate 0.01 Given 12/14/2021 1:45 PM CDT 100 mL mEq/ml-epinephrine 1 mg in 0.9% sodium chloride 1000 mL (TUMESCENT SOLUTION VEIN FORMULA) ONCE PRN, Starting on Tue12/14/21 at 1345, Intra-op lidocaine PF (XYLOCAINE) 1 % injection 0 .1-0.3 mL 0.1-0.3 mL, Intradermal, PRN, Other, for additional IV starts, Starting on Tue12/14/21 at 1113, Pre-op meperidine (DEMEROL) injection 12.5 mg 12.5 mg, Intravenous, [id number], Shiverin g, Starting on Tue12/14/21 at 1144, Until Tue12/14/21 at 1736, For 2 doses, Maxim um cumulative dose is 25 mg. Do not give to patients receiving MAO inhibitors (e.g. phenelzine (NA RDIL), tranylcypromine (PARNATE), selegiline (ELDEPRYL))., PACU/Recovery naloxone (NARCAN) injection 0.08 mg 0.08 mg, Intravenous, PRN, Other, For respiratory rate less than 8/minute or patient difficult to arouse, Starting on Tue12/14/21 at 1144, Until Tue12/14/21 at 1736, May repeat every 3 minutes or until patient i s responsive to physical stimulation and is able to take deep percy aths. Maximum cumulative dose is 0.4 mg (1 mL). Continue to observe; if no response after administering total dose of 0.4 mg notify anesthesiologist STAT., PACU/Recovery naloxone (NARCAN) injection 0.4 mg 0.4 mg, Intravenous, ONCE PRN, Opioid Re versal, Starting on Tue12/14/21 at 1144, Until Tue12/14/21 at 1736, For 1 dose, For imminent respiratory arrest. Notify MD if naloxone is given., PACU/Recovery ondansetron (ZOFRAN) injection 4 mg 4 mg, Intravenous, Q4H PRN, Nausea, Vomiting, Starting on Tue12/14/21 at 1144, Until Tue12/14/21 at 1736, If multiple medications ar e ordered for nausea or vomiting - administer in the following priority based on medications ordered, effectiveness and availability: ondanset hellen (ZOFRAN) > prochlorperazine (COMPAZINE) > diphenhydrAMINE (BENADRYL) > hydrOXYzine HCl (VISTAR [place])> ePHEDrine > scopolamine (TRANSDERM-SCOP)., PACU/Recovery sodium chloride 0.9% injection 10 mL 10 mL, Intravenous, PRN SEE ADMIN INSTRUCTIONS, Line P atency, Starting on Tue12/14/21 at 1113, Until Tue12/14/21 at 1736, Pre-op documented in this encounter Active and Recently Administered Medications Times are shown in CDT. Scheduled Medication Order 12/12/2021 12/13/2021 12/14/2021 bacitracin 500 UNIT/GM ointment 1400 (Due) Topical, TID, First dose on Tue12/14/21 at 1400, To be give n Intra-Op, Pre-op ceFAZolin (ANCEF) 2 g in sodium chloride 0.9 % 50 mL IVPB (COMPL ETED) 1318 (Started - Provider: Caryl Fiore APRN, CRNA) 2 g, Intravenous, Administer over 30 Min utes, ONCE, On Tue12/14/21 at 1130, For 1 dose, Infuse within 60 minutes prior to incision. Re-dose 1 gram IV every 4 hours after initial dose until incision danya sed. Re-dose if more than 1.5L of blood loss. Pharmacy may adjust for renal insufficiency., Pre-op lidocaine 1 mg/mL-sodium bicarbonate 0.0 1 mEq/mL in 0.9% sodium chloride 1000 mL 1130 (Due) Injection, ONCE, On Tue12/14/21 at 1130 , For 1 dose, To be given Intra-Op To be used for preparation of TUMESCENT VEIN SOLUTION. RN to add EPINEPHrine 1.1mg/1.1mL to each bag just prior to use., Pre-op lidocaine PF (XYLOCAINE) 1 % injection 0.1-0.3 mL 1130 (Due) 0.1-0.3 mL, Intradermal, ONCE, On Tue at 1130, For 1 dose, Lidocaine to be used for IV starts unless patient refuses., Pre-op sodium bicarbonate injection 50 mEq 1130 (Due) 50 mEq, Intravenous, ONCE, On Tue at 1130, For 1 dose, To be given Intra-Op, Pre-op Continuous Medication Order 12/12/2021 12/13/2021 12/14/2021 lactated ringers infusion 1136 ( Started - Provider: Lila Umana RN)1303 (Continue from Pre-Op - Provider: Caryl Fiore APRN, CRNA)1404 (Stopped - Provider: Caryl Fiore APRN, CRNA - Comment: Switch to gravity)1405 (Started - Provider: Caryl H Yin, COSMETICS PRESSER, STUDENT FINANCE ADVISOR) 25 mL/hr, Intravenous, CONTINUOUS, Start ing on Tue12/14/21 at 1130, Administer on all preop surgery patients, ages 12 and older, unless specified differently in the Protocol for Preop Initiation of IV fluids Order Set., Pre-op PRN Medication Order 12/12/2021 12/13/2021 12/14/2021 bacitracin 500 UNIT/GM ointment 1346 (Given - Provider: J Luis Quinones MD) ONCE PRN, Starting on Tue12/14/21 at 1346, Intra-op fentaNYL (SUBLIMAZE) injection 25-50 mcg 25-50 mcg, Intravenous, [id number], Other, 25 mcg for Mild to Moderate Pain (pain score 1-5), 50 mcg for Moderate to Severe Pain (pain score 6 and above) in the immediate postop period when faster on-set, short acting agent is desired., Startin g on Tue12/14/21 at 1144, Until Tue12/14/21 at 1736, Administer every 5 minutes as needed, to a maximum cumulative dose of 250 mcg. Call Anesthesiologist if add itional dose needed For patients with a regional, spinal, or local anesthetic, may give for anticipated pain as the anesthetic wears off. Use fentanyl initially for a short acting agent for treatment of acute post-operative pain. May be used in conjunction with a longer acting agent if ordered for optimal pain control. Respiratory rate must be greater than 10 to administer medications., PACU/Recovery hydrogen peroxide 480 mL in sodium chloride for irrigation 960 m L solution 1359 (Given - Provider: J Luis Quinones MD) ONCE PRN, Starting on Tue12/14/21 at 1359, Intra-op HYDROmorphone (DILAUDID) injection 0.2-0.3 mg 0.2-0.3 mg, Intravenous, Q10MIN PRN, Ivan n, 0.2 mg IV for Mild to Moderate pain (pain score 1-5), 0.3 mg IV for Moderate to Severe pain (pain score 6 and above) in the immediate postop period when longer acting agent is desired., Starting on M on 12/14/21 at 1144, Until Tue12/14/21 at 1736, Maximum cumulative dose is 2 mg in PACU, call Anesthesiologist if additional dosage needed. For patients with a r egional, spinal, or local anesthetic, ma y give for anticipated pain as the anesthetic wears off., PACU/Recovery ibuprofen (MOTRIN) tablet 600 mg 600 mg, Oral, Q6H PRN, Other, Mild Pain (pain score 1-4), Starting on Tue12/14/21 at 1426, Until Tue12/14/21 at 1736, Start when ketorolac (TORADOL) is discontinued, Post-op lidocaine 1 mg/ml-sodium bicarbonate 0.0 1 mEq/ml-epinephrine 1 mg in 0.9% sodium chloride 1000 mL (TUMESCENT SOLUTION VEIN FORMULA) 1345 (Given - Provider: J Luis Quinones MD) ONCE PRN, Starting on Tue12/14/21 at 1345, Intra-op lidocaine PF (XYLOCAINE) 1 % injection 0.1-0.3 mL 0.1-0.3 mL, Intradermal, PRN, Other, for additional IV starts, Starting on Tue12/14/21 at 1113, Pre-op meperidine (DEMEROL) injection 12.5 mg 12.5 mg, Intravenous, [id number], Shiverin g, Starting on Tue12/14/21 at 1144, Until Tue12/14/21 at 1736, For 2 doses, Maximum cumulative dose is 25 mg. Do not give to patients receiving MAO inhibitors ( e.g. phenelzine (NARDIL), tranylcypromin e (PARNATE), selegiline (ELDEPRYL))., PACU/Recovery naloxone (NARCAN) injection 0.08 mg 0.08 mg, Intravenous, PRN, Other, For re spiratory rate less than 8/minute or patient difficult to arouse, Starting on Tue12/14/21 at 1144, Until Tue12/14/21 at 1736, May repeat every 3 minutes or unti l patient is responsive to physical stim ulation and is able to take deep breaths. Maximum cumulative dose is 0.4 mg (1 mL). Continue to observe; if no response after administering total dose of 0.4 mg notify anesthesiologist STAT., PACU/Recovery naloxone (NARCAN) injection 0.4 mg 0.4 mg, Intravenous, ONCE PRN, Opioid Re versal, Starting on Tue12/14/21 at 1144, Until Tue12/14/21 at 1736, For 1 dose, For imminent respiratory arrest. Notify MD if naloxone is given., PACU/Recovery ondansetron (ZOFRAN) injection 4 mg 4 mg, Intravenous, Q4H PRN, Nausea, Vomi ting, Starting on Tue12/14/21 at 1144, Until Tue12/14/21 at 1736, If multiple medications are ordered for nausea or vomiting - administer in the following prior ity based on medications ordered, effect iveness and availability: ondansetron (ZOFRAN) > prochlorperazine (COMPAZINE) > diphenhydrAMINE (BENADRYL) > hydrOXYzine HCl (VISTARIL)> ePHEDrine > scopolamine (TRANSDERM-SCOP)., PACU/Recovery oxyCODONE-acetaminophen (PERCOCET) 5-325 MG per tablet 1-2 Table t 1-2 Tablet, Oral, Q4H PRN, Other, Severe Pain (pain score 8-10), Starting on Tue12/14/21 at 1426, Until Tue12/14/21 at 1736, Post-op sodium chloride 0.9% injection 10 mL 10 mL, Intravenous, PRN SEE ADMIN INSTRU CTIONS, Line Patency, Starting on Tue12/14/21 at 1113, Until Tue12/14/21 at 1736, Pre-op documented in this encounter Care Teams [employer] Worker Relationship Specialty Start Date End Date Non Pn, Clinician, PCP - General 05/20/21 [place] [address] documented as of this encounter
--- OUTSIDE RECORDS SUMMARY | 2021-12-24 15:41 | XMS_ITS | Encounter Summary ---
:1965 Author Organization [facility] Address [address] [place] [address] Care Team Providers Name Role Phone Non Pn, Clinician MD Primary Care Provider Unavailable Reason for Visit Procedure/Equipment (Routine) - Incomplete Specialty Diagnoses / Procedures Referred By Contact Refer red To Contact Diagnoses Chronic pain of left knee Antonio Phelan MD Procedures XR Knee Rt 1-2 Views Comparison [address] [place] [address] Referral ID Status Reason Start Date Expiration Date Visits V isits Requested Authorized [id number] Incomplete 06/01/2021 08/31/2022 1 1 Encounter Details Date Type Department Care Team Description 06/01/2021 [facility] Antonio Crabtree Chronic daren n of left Procedure [place] [address] MD [place] knee Radiology [address] [address] [place], [place] [address] [address] [place], [place] [phone] (Work) [phone] Social History Tobacco Use Types Packs/Day Years Used Date Smoking Tobacco: Never Sex Assigned at Date Recorded Not on file documented as of this encounter Plan of Treatment Upcoming Encounters Date Type Specialty Care Team Description 12/25/2021 Appointment Vascular Surgery Gloria Quinones MD [address] [place] [address] [id number] (Wo rk) 12/25/2021 Appointment Vascular Surgery Nurse, [id number] Vsurg documented as of this encounter Procedures Procedure Name Priority Date/Time Associated Comments Diagnosis XR KNEE RT 1-2 VIEWS Routine 06/01/2021 11:44 AM Chronic pain of Results for this COMPARISON CDT left knee procedure are i n the results section. documented in this encounter Results XR Knee Rt 1-2 Views Comparison (06/01/2021 11:44 AM CDT) Anatomical Region Laterality Modality Lower Extremity, Knee Digital Radiograph y Specimen (Source) Anatomical Collection Method Collection Time Re ceived Time Location / / Volume Laterality 06/01/2021 11:38 AM CDT Impressions 06/01/2021 12:52 PM CDT COMPARISON: ??03/17/2020. FINDINGS: ??3 views of the left knee, 2 on the right. No acute fracture or subluxation. On the left, there is mild narrowing of the medial joint space, unchanged. A minimal effusion is similar to previous. Mild lateral patellar tilt, unchanged. On the right, mild narrowing of the medi al compartment joint space is unchanged. Mild lateral patellar tilt, unchanged. Procedure Note Christian Leigh MD - 06/01/2021Formatt ing of this note might be different from the original. IMPRESSION COMPARISON: 03/17/2020. FINDINGS: 3 views of the left knee, 2 on the right. No acute fracture or subluxation. On the left, there is mild narrowing of the medial joint space, unchanged. A minimal effusion is similar to previous. Mild lateral patellar tilt, unchanged. On the right, mild narrowing of the medi al compartment joint space is unchanged. Mild lateral patellar tilt, unchanged. Antonio Phelan MD RAD GD XR Knee Lt 3 Views (06/01/2021 11:44 AM CDT) Anatomical Region Laterality Modality Lower Extremity, Knee Digital Radiograph y Specimen (Source) Anatomical Collection Method Collection Time Re ceived Time Location / / Volume Laterality 06/01/2021 11:38 AM CDT Impressions 06/01/2021 12:52 PM CDT COMPARISON: ??03/17/2020. FINDINGS: ??3 views of the left knee, 2 on the right. No acute fracture or subluxation. On the left, there is mild narrowing of the medial joint space, unchanged. A minimal effusion is similar to previous. Mild lateral patellar tilt, unchanged. On the right, mild narrowing of the medi al compartment joint space is unchanged. Mild lateral patellar tilt, unchanged. Procedure Note Christian Leigh MD - 06/01/2021Formatt ing of this note might be different from the original. IMPRESSION COMPARISON: 03/17/2020. FINDINGS: 3 views of the left knee, 2 on the right. No acute fracture or subluxation. On the left, there is mild narrowing of the medial joint space, unchanged. A minimal effusion is similar to previous. Mild lateral patellar tilt, unchanged. On the right, mild narrowing of the medi al compartment joint space is unchanged. Mild lateral patellar tilt, unchanged. Antonio Phelan MD RAD GD documented in this encounter Visit Diagnoses Diagnosis Chronic pain of left knee Pain in joint, lower leg Chronic pain of left knee Pain in joint, lower leg documented in this encounter Care Teams Outsole Skiver Relationship Specialty Start Date End Date Non Pn, Clinician, PCP - General 05/20/21 [place] [address] documented as of this encounter
--- OUTSIDE RECORDS SUMMARY | 2021-12-24 15:41 | XMS_ITS | Encounter Summary ---
:1965 Author Organization [facility] Address [address], [place] [address] Care Team Providers Name Role Phone Non Pn, Clinician MD Primary Care Provider Unavailable Reason for Visit Reason Onset Date Comments COVID Questions 12/11/2021 Encounter Details Date Type Department Care Team Description 12/11/2021 Lab Visit [facility] for screening for Laboratory other viral diseases [address] [facility] (Primary Dx) [place] [address] Social History Tobacco Use Types Packs/Day Years Used Date Smoking Tobacco: Never Sex Assigned at Date Recorded Not on file documented as of this encounter Plan of Treatment Upcoming Encounters Date Type Specialty Care Team Description 12/25/2021 Appointment Vascular Surgery Gloria Quinones MD [address] [facility] N 9[address]486 (Wo rk) 12/25/2021 Appointment Vascular Surgery Nurse, [id number] Vsurg documented as of this encounter Procedures Procedure Name Priority Date/Time Associated Comments Diagnosis 2019 NOVEL Routine 12/11/2021 10:51 Encounter for Results fo r this CORONAVIRUS AM CDT screening for other procedur e are in viral diseases the results section. documented in this encounter Results Asymptomatic - 2019 Novel Coronavirus (COVID-19) (12/11/2021 10:51 AM CDT) [facility] Method Time Signature COVID-19 Not Not 12/12/2021 [facility] Interpretation Detected Detected 12:35 AM CENTRAL LAB CDT Source Nares, left 12/12/2021 [facility] and right 12:35 AM CENTRAL LAB CDT Specimen Anatomical Collection Method Collection Time Receive d Time (Source) Location / / Volume Laterality Swab (Source Non-blood 12/11/2021 10:51 12/11/2021 Required) Collection / AM CDT 10:58 AM CDT Unknown Narrative [facility] - 12/12/2021 12:35 AM CDT Test performed by Catcher Plug Mediated Amplification. TMA has been shown to be equivalent to commercial real-time PCR t ests. This test has been authorized by the FDA under Emergency Use Authorization (E UA) for use by authorized laboratories. Ronnell Fraga MD LAB_1 Performing Organization Address City/State/ZIP Code Phon e Number [facility] [address] [address] documented in this encounter Visit Diagnoses Diagnosis Encounter for screening for other viral diseases - Primary documented in this encounter Care Teams Relations Liaison Relationship Specialty Start Date End Date Non Pn, Clinician, PCP - General 05/20/21 [place] [address] documented as of this encounter
--- OUTSIDE RECORDS SUMMARY | 2021-12-24 15:41 | XMS_ITS | Encounter Summary ---
:1965 Author Organization [facility] Address [address], [place] [address] Care Team Providers Name Role Phone Non Pn, Clinician MD Primary Care Provider Unavailable Reason for Referral Therapies (Routine) - New Request Specialty Diagnoses / Procedures Referred By Contact Refer red To Contact [place] [address] [place] [address] Referral ID Status Reason Start Date Expiration Date Visits V isits Requested Authorized [id number] New Request 07/31/2021 07/31/2022 1 1 Scheduling Instructions Your provider has recommended an appoint ment with [facility]. You can quickly make your appointment online at [employer]/schedule. You can also call [phone] for help scheduling yo ur appointment. We suggest you call your health insurance company about your cove rage and benefits for this appointment. Procedure/Equipment (Routine) - Incomplete Specialty Diagnoses / Procedures Referred By Contact Refer red To Contact Diagnoses Hip pain Rene Pitts DO Procedures XR Pelvis W Lt Lateral Hip [address] [place] [address] Referral ID Status Reason Start Date Expiration Date Visits V isits Requested Authorized [id number] Incomplete 07/31/2021 10/30/2022 1 1 Reason for Visit Reason Comments HIP PAIN Left, DOI: 05/07/21, EDITH: mov ing desk Encounter Details Date Type Department Care Team Description 07/31/2021 Office Visit Rene Nix Hip pa in (Primary Dx) [facility] [address] [facility] [address] [place] [id number] [phone] Social History Tobacco Use Types Packs/Day Years Used Date Smoking Tobacco: Never Sex Assigned at Date Recorded Not on file documented as of this encounter Last Filed Vital Signs Vital Sign Reading Time Taken Comments Blood Pressure - - Pulse - - Temperature 36.3 ??C (97.3 ??F) 07/31/2021 9:08 AM CDT Respiratory Rate - - Oxygen Saturation - - Inhaled Oxygen Concentration - - Weight 102.1 kg (225 lb) 07/31/2021 9:08 AM CDT Height 182.9 cm (6') 07/31/2021 9:08 AM CDT Body Mass Index 30.52 07/31/2021 9:08 AM CDT documented in this encounter Patient Instructions Patient InstructionsDessLady bliss R, ATC - 07/31/2021 10:04 AM CDT Thank you for choosing [facility] for your health care visit today. Rene Pitts DO Imaging Business Development Director: [facility] [place] - [address] [place] [address]. Call [phone] to schedule. Medication Requests: Prescriptions are filled on Weekdays before 3:00PM For all medication refills: Request a refill using MyChart or contact your Pharmacy Paperwork Requests: FMLA or disability paperwork can be faxed to: [phone] Please allow 7-10 business days for completion of all paperwork. [facility] Worker's Compensation Services: E-mail Address: [email or web address] What is Know Your Cost? Know Your Cost is a service for patients and patient/members to call and receive personalized cost information and estimates across our care group. The phone number is (COST) Tuesday - Tuesday 8 AM to 5 PM To request copies of your medical records, call: [phone] (option 4) Diagnosis: Left Hip Pain Plan: Follow Up: As needed after 4-6 weeks Physical Therapy: Schedule your physical therapy appointment at the front end developer or call [phone]. Medications: naproxen If you have any questions regarding your visit or next steps, please contact us at [phone]. documented in this encounter Progress Notes Rene Pitts, - 07/31/2021 12:00 AM CDT NAME: YANELI SANTIAGO CSN: [id number] CLINIC NOTE DATE OF SERVICE: 07/31/2021 : 1965 CHIEF COMPLAINT: Left hip pain. DATE OF INJURY: May 09. HPI: This is a 56-year-old man who says on May 09 he was helping his son move a desk. He felt that his left hip went out of place. The pain got better after a few days, but then he felt it going inand out when he does stuff like squatting or walking too long at work. Pain has been pretty persistent since then, and so he is finally getting it checked out today. June of this year, he did have left his left knee cleaned out by Dr. Phelan. He does not take many medications. He has a prescription with Dr. Phelan for naproxen, which he has not taken more than a couple of times for the hip or the knee. No other prior hip issues. Pain level ranges from 3/10 to 8/10. VITAL SIGNS: Patient's height is 72 inches, weight 225 pounds, temp 97 degrees Fahrenheit. PHYSICAL EXAM: GENERAL: This is overall healthy-appearing 56-year-old man in no acute distress. PSYCH: Normal affect. CARDIOVASCULAR: Pulses regular and equal in the bilateral lower extremities. NEURO:Sensation preserved in both legs. RHEUM: No deformities suggesting autoimmune disease. RESPIRATORY: Patient is breathing normally. SKIN: No ecchymosis or lesions noted. MSK: Exam reveals plus FADIR forgroin pain. Negative BRITNI, negative seated and supine log rolls, plus mild TTP at hip flexor tendonnear the ASIS. He has 5/5 strength with knee extension, flexion, hip flexion, hip extension. IMAGING: Left hip pelvis x-rays taken today, reviewed by me personally, show overall preserved spaces in the left hip joint. Small linear density of uncertain etiology, possibly a calcific tendinitis versus calcification in labral tissue. Right hip reveals a pincer lesion at the acetabulum and a small bone spur at the femoral neck. ASSESSMENT: Left hip pain. PLAN: Physical exam findings reveal mild groin pain only with FADIR. Otherwise, no specific provocative maneuvers are positive today. I talked about options with Yaneli and I recommend at this point westart him with physical therapy for 4-6 weeks. He is already scheduled to do PT for his knee, so this can be added to the knee PT. He will use the naproxen he has as needed, and after 4-6 weeks of PT, if he is not having resolution of symptoms, return to clinic for a followup evaluation. Depending on exam findings at that point, would consider advanced imaging versus a trial of a cortisone injection. DO KORTNEY PEAÑH/AQMatt /[id number] documented in this encounter Plan of Treatment Upcoming Encounters Date Type Specialty Care Team Description 12/25/2021 Appointment Vascular Surgery Gloria Quinones MD [address] [address] (Wo rk) 12/25/2021 Appointment Vascular Surgery Nurse, [id number] Vsurg Scheduled Referrals Name Type Priority Associated Diagnoses Order S chedule Physical Therapy Referral Routine Hip pain Ordered: documented as of this encounter Results XR Pelvis W Lt Lateral Hip (07/31/2021 9:18 AM CDT) Anatomical Region Laterality Modality Pelvis, Hip Digital Radiography Specimen (Source) Anatomical Collection Method Collection Time Re ceived Time Location / / Volume Laterality 07/31/2021 9:13 AM CDT Impressions 07/31/2021 10:42 AM CDT COMPARISON: ??None. FINDINGS: ??No definite fracture or acut e-appearing malalignment in either hip. Mild bilateral hip joint space narrowing. Cam type deformity in the right femoral head/neck junction, which could contribu te to femoral acetabular. Moderate to se kalyan bilateral SI joint degenerative change. Soft tissues are grossly unremarkable. Procedure Note Kulwant Ortiz MD - 07/31/2021Format ting of this note might be different from the original. IMPRESSION COMPARISON: None. FINDINGS: No definite fracture or acute- appearing malalignment in either hip. Mild bilateral hip joint space narrowing. Cam type deformity in the right femoral head/neck junction, which could contribute to femoral acetabular. Moderate to severe bilateral SI joint degenerative change. Soft tissues are grossly unremarkable. Rene HERZOG GD documented in this encounter Visit Diagnoses Diagnosis Hip pain - Primary Pain in joint, pelvic region and thigh Hip pain Pain in joint, pelvic region and thigh documented in this encounter Care Teams Central Station Operator Relationship Specialty Start Date End Date Non Pn, Clinician, PCP - General 05/20/21 [place] [address] documented as of this encounter
--- OUTSIDE RECORDS SUMMARY | 2021-12-24 15:41 | XMS_ITS | Encounter Summary ---
:1965 Author [facility] Address [address] [place] [address] Care Team Providers Name Role Phone Unavailable Primary Care Provider Unavailable Reason for Referral (Routine) - New Request Specialty Diagnoses / Procedures Referred By Contact Refer red To Contact Diagnoses Chronic pain of left knee Antonio Phelan MD Procedures Triamcinolone Acet Inj Nos: (per 10 mg) [address] [place] [address] Referral ID Status Reason Start Date Expiration Date Visits V isits Requested Authorized [id number] New Request 03/04/2021 06/03/2022 1 1 COLORER Reason for Visit Reason Comments Follow-up Left knee Encounter Details Date Type Department Care Team Description 03/04/2021 Office Visit Antonio Gross, Chroni c pain of left Orthopaedics & Sports MD knee (Primary Dx) Medicine [address] [address] [place] [id number] [phone] Social History Tobacco Use Types Packs/Day Years Used Date Smoking Tobacco: Never Sex Assigned at Date Recorded Not on file documented as of this encounter Patient Instructions Patient InstructionsAntonio Phelan MD - 03/04/2021 8:20 AM CST Thank you for being seen today at [facility] Orthopedics Your Diagnosis is: 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 This has a mixture of short term numbing medication (lidocaine) and steroid (triamcinolone). This medication can take 3-5 days to note improvements in your pain and function. I recommend you rest the joint that you had injected for 1-2 days after the injection, toallow the joint to calm down and maximize the effect of the medication. After a 1-2 day period, you may gradually increase the use of the injured joint. You can remove the bandaid, shower and bathe normally after 2-4 hours from the injection. If you do not notice significant relief with modifying youractivities, oral anti- inflammatories (ibuprofen or naproxen), and the injection, please follow-up with Dr. Phelan about 6 weeks after the injection for further review of treatment options. Antonio Phelan MD Orthopaedic Surgery [phone] COLORER documented in this encounter Progress Notes Antonio Phelan MD - 03/04/2021 12:00 AM CST NAME: ROLF SANTIAGO CSN: [id number] CLINIC NOTE DATE OF SERVICE: 03/04/2021 : 1965 ID: A 55-year-old male presents today for followup of left knee pain. He has a history of partial meniscectomy in an outside hospital in September 2019. He has a known posterior horn medial meniscus root tear on previous imaging 1 year ago. INTERVAL HISTORY: The patient presents today for followup of the left knee. He states that overall his knee was doing quite well for 3-4 months. Over the past 2 months he has noticed a slow onset of pain. With normal everyday activities this does not bother him, but going up and down stairs or deep squats, it does seem to bother him. He denies any specific mechanical symptoms, but does note some giving way or instability at times. His last injection was in July of 2020, which provided him good relief for several months. EXAM: Patient is alert, oriented, no acute distress. He has nonlabored breathing at rest. On examination of the patient's left knee, he has 2+ medial and lateral patellar glide. He has a negative patellar grind test. He has no effusion. His range of motion is from full extension to 135 degrees of flexion. He has mild to moderate medial and lateral joint line tenderness to palpation, particularly moreposteriorly. He also has mild tenderness to palpation along the pes anserinus. He has a Soham grade 1A, negative posterior drawer, negative varus and valgus stress test at both 0 and 30 degrees of flexion. He has a mildly positive Lyla's to varus load, negative to valgus load, mildly positive Isaias harini's test. ASSESSMENT: A 55-year-old male with degenerative left knee including a medial meniscus root tear, currently pursuing nonoperative management. He had good relief in the past with injections. PLAN: I discussed the patient's above diagnosis and treatment options. At this point, he wishes to pursue a repeat injection. We will plan to pursue cortisone today, but will use viscosupplementation in the future if he does require another injection. INJECTION: After verbal consent was obtained, the patient's left knee was sterilely prepped with alcohol and chlorhexidine. 40 mg triamcinolone and 4 mL 1% lidocaine plain were injected into the left knee via superolateral portal. The injection site was covered with a Band-Aid. The patient tolerated the procedure well. Total time spent on visit was 24 minutes, including non totm-va-hiep time. MD STEPHANIE TINOCO/CRUZ /[id number] COLORER documented in this encounter Plan of Treatment Upcoming Encounters Date Type Specialty Care Team Description 12/25/2021 Appointment Vascular Surgery Gloria Quinones MD [address] [facility] N [address] (Wo rk) 12/25/2021 Appointment Vascular Surgery Nurse, [id number] Jason documented as of this encounter Visit Diagnoses Diagnosis Chronic pain of left knee - Primary Pain in joint, lower leg documented in this encounter
--- OUTSIDE RECORDS SUMMARY | 2021-12-24 15:41 | XMS_ITS | Encounter Summary ---
:1965 Author [facility] Address [address] [address] Care Team Providers Name Role Phone Non Pn, Clinician MD Primary Care Provider Unavailable Reason for Visit Reason Comments Prior Authorization For Imaging Encounter Details Date Type Department Care Team Description [facility] Author[facility] For Orthopaedics & Sports MD Imaging Medicine [address] [facility] [address] [place] [phone] Social History Tobacco Use Types Packs/Day Years Used Date Smoking Tobacco: Never Sex Assigned at Date Recorded Not on file documented as of this encounter Nursing Notes Elizabeth Carballo OA - 06/01/2021 2:49 PM CDT Images from the original note were not included. Called and left a message that the left knee prior auth was approved. NO PRIOR AUTHORIZATION REQUIRED Insurance: [facility] Procedure: MRI Left knee WO CPT: 58649 DX: M25.562 Per: Kortney Ref #: [id number] Aram Yang Paper Cleaner Prior Property Appraiser [address] [address] [place] [address] [email or web address] documented in this encounter Plan of Treatment Upcoming Encounters Date Type Specialty Care Team Description 12/25/2021 Appointment Vascular Surgery Gloria Quinones MD [address] [facility] N [address] (Wo rk) 12/25/2021 Appointment Vascular Surgery Nurse, [id number] [place] documented as of this encounter Visit Diagnoses Not on filedocumented in this encounter Care Teams Software Release Manager Relationship Specialty Start Date End Date Non Pn, Clinician, PCP - General 05/20/21 [place] [address] documented as of this encounter
--- OUTSIDE RECORDS SUMMARY | 2021-12-24 15:41 | XMS_ITS | Encounter Summary ---
:1965 Author Organization [facility] Address [address] [place] [address] Care Team Providers Name Role Phone Non Pn, Clinician MD Primary Care Provider Unavailable Reason for Visit Reason Comments Surgery Questions Encounter Details Date Type Department Care Team Description 06/10/2021 Telephone [facility] Antonio Rothman Surger y Questions Orthopaedics & Sports [place] Medicine [address] [address] [place] [address] [place] [address] [phone] Social History Tobacco Use Types Packs/Day Years Used Date Smoking Tobacco: Never Sex Assigned at Date Recorded Not on file documented as of this encounter Nursing Notes Yrn Pina - 06/10/2021 4:05 PM CDT I talked to Rolf. He is scheduled for surgery on 07/03/21 at [facility]. Yrn Pina 4:09 PM 06/10/2021 Savannah Cade - 06/10/2021 1:23 PM CDT Has the patient recently had surgery or an injury? No How may we help you today? Please call pt back to advise, pt is ready to schedule surgery Have you been seen for this recently?: 06/01/[address] Phelan [Qualitative Field Project Manager/Appt Center: If yes, please include date and provider.] Is it okay to leave detailed message on your voicemail? Yes [Qualitative Field Project Manager/Appt Center: If this call is after 3 p.m., communicate to patient: If we are not able to get back to you by the end of the day and your symptoms worsen please contact the Careline] documented in this encounter Plan of Treatment Upcoming Encounters Date Type Specialty Care Team Description 12/25/2021 Appointment Vascular Surgery Gloria Quinones MD [address] [facility] N [phone] (Wo rk) 12/25/2021 Appointment Vascular Surgery Nurse, [id number] Vsurg documented as of this encounter Visit Diagnoses Not on filedocumented in this encounter Care Teams Adjunct Faculty Mathematics Department Relationship Specialty Start Date End Date Non Pn, Clinician, PCP - General 05/20/21 [place] [address] documented as of this encounter
--- OUTSIDE RECORDS SUMMARY | 2021-12-24 15:41 | XMS_ITS | Encounter Summary ---
:1965 Author Organization [facility] Address [address] [place] [address] Care Team Providers Name Role Phone Non Pn, Clinician MD Primary Care Provider Unavailable Reason for Visit Reason Comments RESULTS, TEST Encounter Details Date Type Department Care Team Description 06/08/2021 Telephone [facility] Antonio Phelan MD RESULTS, TEST Orthopaedics & Sports [address] [facility] [place] [address] [place] [address] [phone] Social History Tobacco Use Types Packs/Day Years Used Date Smoking Tobacco: Never Sex Assigned at Date Recorded Not on file documented as of this encounter Nursing Notes Fabby Gloria RN - 06/08/2021 3:52 PM CDT Antonio Phelan MD (3:50 PM) Called patient and discussed results Antonio Phelan MD - 06/08/2021 3:50 PM CDT I called patient to discuss findings regarding his left knee. He has a stable posterior horn medial meniscus tear consistent with a complete root tear. 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 He also has scar tissue over the anterolateral portion of the lateral compartment with no clear lateral meniscus tear or lateral compartment chondromalacia. 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 His symptoms do not seem to be coming from the medial compartment at this time. We therefore discussed both nonsurgical and surgical measures. He has had recurrent symptoms despite conservative treatment including physical therapy and injections in the past. We discussed the option of knee arthroscopy, partial medial meniscectomy, chondroplasty, debridement of scar tissue. We also discussedthe option of medial meniscus root repair. The patient strongly wishes to avoid the prolonged rehab r equired for meniscal root repair, but is hoping to have a more definitive option for his lateral knee symptoms. We discussed that without treatment of the meniscal root, it may result in progressive arthritis and need for knee replacement in the future. The patient accepts this risk. He therefore wishes to pursue left knee arthroscopy, partial meniscectomy, extensive debridement, and chondroplasty. Iwill have him meet with my assembler surgical garment to arrange for date and time in the near future. Antonio Phelan MD 06/08/2021, 3:52 PM Мария Torres RN - 06/08/2021 1:53 PM CDT Action: Results, Left knee MRI done 06/05/21 Next Step: Caller IS expecting a call back from care team. Specific Request(s): 1. Patient can be contacted back at this number [phone]. Thanks! Vianey Cohen - 06/08/2021 1:26 PM CDT Has the patient recently had surgery or an injury? No What test are you calling about: MRI test Who ordered it: [place] Where was the test done: BV MRI When did you have it done: 06/05/21 If a prescription is needed, would you like it filled at our [facility]??? pharmacy? [Fence Supervisor/Appt Center: Was the pharmacy entered into the Preferred Pharmacy field? N/A] Is it okay to leave detailed message on your voicemail? Yes [Fence Supervisor/Appt Center: If this call is after 3 p.m., communicate to patient: If we are not able to get back to you by the end of the day and your symptoms worsen please contact the Careline] [Fence Supervisor: Inform patient that if they are active with online patient services they can receive their results online (only available for 12 years and younger and 18 years and older)] documented in this encounter Plan of Treatment Upcoming Encounters Date Type Specialty Care Team Description 12/25/2021 Appointment Vascular Surgery Gloria Quinones MD [address] [facility] N [id number] (Wo rk) 12/25/2021 Appointment Vascular Surgery Nurse, [id number] Vsurg documented as of this encounter Visit Diagnoses Not on filedocumented in this encounter Care Teams Semiconductor Engineer Relationship Specialty Start Date End Date Non Pn, Clinician, PCP - General 05/20/21 [facility] [address] documented as of this encounter
--- OUTSIDE RECORDS SUMMARY | 2021-12-24 15:41 | XMS_ITS | Encounter Summary ---
:1965 Author Organization [facility] [employer] Address [address] [place] [address] Care Team Providers Name Role Phone Non Pn, Clinician MD Primary Care Provider Unavailable Reason for Visit Reason Comments QUESTIONS, GENERAL Encounter Details Date Type Department Care Team Description 11/06/2021 Telephone [facility], JAN ONS, GENERAL Orthopaedics & Sports MD Medicine [address] [place] [id number] [place] [address] [place] [address] [phone] Social History Tobacco Use Types Packs/Day Years Used Date Smoking Tobacco: Never Sex Assigned at Date Recorded Not on file documented as of this encounter Nursing Notes Domitila Hamilton RN - 11/10/2021 10:[address] Phelan would need to reevaluate first. Appt made. Future Appointments Date Time Provider Department Center 11/23/2021 11:20 AM Antonio Phelan MD [facility] BV Мария Torres RN - 11/09/2021 8:35 AM CDT Left patient a message to call the nurse triage line back. Regla Lazo - 11/06/2021 1:23 PM CDT Has the patient recently had surgery or an injury? Yes. Date of Surgery: July 03, 2021 Type of Surgery: LEFT KNEE ARTHROSCOPY, PARTIAL MEDIAL MENISECTOMY AND DEBRIDEMENT How may we help you today? Patient states he is having pain now in the right knee. Patient would like to know if he is able to receive cortisone injection or if he is needing to wait a certain amount of time. Please advise. Thank you! Have you been seen for this recently?: July 13, 2021 - Antonio Phelan MD [Manager Managed Backup Services/Appt Center: If yes, please include date and provider.] Is it okay to leave detailed message on your voicemail? Yes [Manager Managed Backup Services/Appt Center: If this call is after 3 p.m., communicate to patient: If we are not able to get back to you by the end of the day and your symptoms worsen please contact the Careline] documented in this encounter Plan of Treatment Upcoming Encounters Date Type Specialty Care Team Description 12/25/2021 Appointment Vascular Surgery Gloria Quinones MD [address] [facility] [id number] (Wo rk) 12/25/2021 Appointment Vascular Surgery Nurse, [id number] Vsurg documented as of this encounter Visit Diagnoses Not on filedocumented in this encounter Care Teams Algebra Teacher Relationship Specialty Start Date End Date Non Pn, Clinician, PCP - General 05/20/21 [place] [address] documented as of this encounter
--- OUTSIDE RECORDS SUMMARY | 2021-12-24 15:41 | XMS_ITS | Encounter Summary ---
:1965 Author Organization [facility] Address [address] [place] [address] Care Team Providers Name Role Phone Non Pn, Clinician MD Primary Care Provider Unavailable Reason for Visit Reason Comments Knee Problem Encounter Details Date Type Department Care Team Description [facility], [facility] S/P left knee arthroscopy (Primary Dx); - Physical Therapy [address] [facility] Chronic pain of left knee [address] [place] [address] [phone] Social History Tobacco Use Types Packs/Day Years Used Date Smoking Tobacco: Never Sex Assigned at Date Recorded Not on file documented as of this encounter Progress Notes Pb Moran, PT - 07/13/2021 8:30 AM CDT [facility] Physical Therapy Progress Note Visit Number: 2 Initial Certification Period: 07/06/2021 to 10/04/21 Referring Provider: Antonio Phelan Surgical Procedure: L partial medial meniscectomy Surgical Date: 07/03/21 Visit Diagnosis: 1. Chronic pain of left knee 2. S/P left knee arthroscopy ?? Precautions: WBAT ?? Orders: Evaluate & treat, Per protocol Onset/Referral Date: 07/03/21 SUBJECTIVE: Pt reports over the last few days he has noticed increased pain and swelling in his L knee. He states he was doing fine until about Tuesday afternoon when his symptoms began to worsen. He reports he hasbeen attempting to ice and elevate his L LE as much as possible and this does not seem to help. Pt reports he is concerned about possible infection in his knee OBJECTIVE Current Objective Findings: Pt L knee has increased swelling compared to R. There is noticeable swelling around the entire L knee with an increased protrusion over his medial portal incision. There is mild diffuse erythema throughout the knee. His L knee is mildly warm to the touch. While sitting pt is can only perform about 90 deg of knee flexion which is decreased from prior session. Treatment/Education Today: TREATMENT DATE 07/06/21 ??07/13/21 ? VISIT NUMBER 1 ??2 ?no treatment performed today ? THERAPEUTIC EXERCISE ? Minutes 15 ? Quad set 3 hold, 10x, good contraction ? Bridge 10x, cues to engage glutes prior to lifting/ ? SLR With quad set, 10x, mild extensor lag noted on last 2 reps ? Heel slide 10x to comfortable end range, tightness noted in medial knee ? LAQ 10x, cues for eccentric control ? Mini squat 10x with UE assist, cues to sit hips back ? Seated heel slide To comfortable end range, 10x ? Timed Code Treatment Minutes: 15 ??0 ? Total Treatment Minutes: 25 ??5 ? ROM of surgical limb L knee flexion AROM = 0-100 ? Current Home Exercise Program List: Access Code: [email or web address] URL: [email or web address] Date: 07/06/2021 Prepared by: Pb Moran ?? Exercises Supine Quad Set - 3-4 x daily - 7 x weekly - 2 sets - 10 reps - 3 seconds hold Active Straight Leg Raise with Quad Set - 1-2 x daily - 7 x weekly - 1-2 sets - 5-10 reps Seated Long Arc Quad - 1-2 x daily - 7 x weekly - 2 sets - 10 reps Supine Heel Slide - 3-4 x daily - 7 x weekly - 2 sets - 10 reps Supine Bridge - 1-2 x daily - 7 x weekly - 2 sets - 10 reps Seated Knee Flexion Extension AROM - 3-4 x daily - 7 x weekly - 2 sets - 10 reps Mini Squat with Counter Support - 1-2 x daily - 7 x weekly - 2 sets - 10 reps ASSESSMENT/PROGRESS TOWARD GOALS: Pt returns to PT reporting concern over possible infection of the L knee following L knee arthroscopy. Pt L knee has increased swelling compared to R. There is noticeable swelling around the entire L knee with an increased protrusion over his medial portal incision. There is mild diffuse erythema throu ghout the knee. His L knee is mildly warm to the touch. While sitting pt is can only perform about 90 deg of knee flexion which is decreased from prior session. Discussed with pt he should follow up with his surgical team about these symptoms for further instructions. Pt reports he is planning on going to [facility] right after this appointment and will attempt to be seen there. Encouraged pt to not hesitate to be seen for this issue. Functional Goals/Outcomes: HEP/Independent Management: Demonstrate independence with HEP and self- management following each treatment session Ambulation: Ambulate with normal gait pattern on uneven surfaces with minimal to no symptoms/limp in4 weeks. Ascend/descend stairs independently with reciprocal pattern with minimal to no symptoms and improvedlower extremity alignment in 6 weeks PLAN: Pending consult with physician, progress ROM and strengthening per protocol and pt tolerance as able documented in this encounter Plan of Treatment Upcoming Encounters Date Type Specialty Care Team Description 12/25/2021 Appointment Vascular Surgery Gloria Quinones MD [address] [facility] N [id number] (Wo rk) 12/25/2021 Appointment Vascular Surgery Nurse, [id number] Vsurg documented as of this encounter Visit Diagnoses Diagnosis S/P left knee arthroscopy - Primary Other postprocedural status Chronic pain of left knee Pain in joint, lower leg documented in this encounter Care Teams Sales And Service Associate Relationship Specialty Start Date End Date Non Pn, Clinician, PCP - General 05/20/21 [place] [address] documented as of this encounter
--- OUTSIDE RECORDS SUMMARY | 2021-12-24 15:41 | XMS_ITS | Encounter Summary ---
:1965 Author Organization [facility] Address [address] [place] [address] Care Team Providers Name Role Phone Non Pn, Clinician MD Primary Care Provider Unavailable Reason for Referral Procedure/Equipment (Routine) - Incomplete Specialty Diagnoses / Procedures Referred By Contact Refer red To Contact Diagnoses Varicose veins of both lower extremities with complications J Luis Quinones MD Procedures VL US Intra-Op Closure BV [address] [place], [place] [address] Referral ID Status Reason Start Date Expiration Date Visits V isits Requested Authorized [id number] Incomplete 11/12/2021 02/11/2023 1 1 Reason for Visit Procedure/Equipment (Routine) - Incomplete Specialty Diagnoses / Procedures Referred By Contact Refer red To Contact Diagnoses Varicose veins of both lower extremities with complications J Luis Quinones MD Procedures VL US Intra-Op Closure BV [address] [place], [place] [address] Referral ID Status Reason Start Date Expiration Date Visits V isits Requested Authorized [id number] Incomplete 11/12/2021 02/11/2023 1 1 Encounter Details Date Type Department Care Team Description 12/14/2021 Hospital Encounter Heart & Vascular J Luis Quinones V aricose veins of Center Vascular MD Jeffery both lower Lab [address] with [address] [facility], [address] [place] [address] [phone] Social History Tobacco Use Types Packs/Day Years [...] Appointment Vascular Surgery Gloria Quinones MD [address] [facility] N [address] (Wo rk) 12/25/2021 Appointment Vascular Surgery Nurse, [id number] [place] documented as of this encounter Procedures Procedure Name Priority Date/Time Associated Diagnosis Comme nts US INTRA-OP Routine 12/14/2021 2:18 PM Varicose veins of paulo th Results for this CLOSURE BV CDT lower extremities with proce dure are in complications the results section. documented in this encounter Results US Intra-Op Closure BV (12/14/2021 2:18 PM CDT) Anatomical Region Laterality Modality Ultrasound Specimen (Source) Anatomical Location Collection Method / Collectio n Time Received Time / Laterality Volume Impressions 12/23/2021 12:50 PM CDT An intra-operative radiofrequency ablati on was performed on the right great saphenous vein. Narrative 12/23/2021 12:50 PM CDT Indication: Venous insufficiency Intra-operative radiofrequency ablation of the right great saphenous vein. An intra-operative duplex ultrasound was performed on the right lower extremity to assist during radiofrequenc y ablation. RIGHT LOWER EXTREMITY The great saphenous vein was identified intra-operatively. Under ultrasound guidance, the needle an d guide wire were inserted into the great saphenous vein at the proximal thigh. The catheter tip was then observed to th e most proximal portion of the great saphenous vein, with the catheter tip ending just inferior to the saphenofemoral junction. The tumescent anesthesia was then admini stered under ultrasound guidance. The radiofrequency procedure was then pe rformed. A post treatment ultrasound was performe d, and no blood flow was detected in the treated great saphenous vein. J Luis Quinones MD RAD VASCULAR US documented in this encounter Visit Diagnoses Diagnosis Varicose veins of both lower extremities with complications documented in this encounter Care Teams Corrections Sergeant Relationship Specialty Start Date End Date Non Pn, Clinician, PCP - General 05/20/21 [place] [address] documented as of this encounter
--- OUTSIDE RECORDS SUMMARY | 2021-12-24 15:41 | XMS_ITS | Encounter Summary ---
:1965 Author Organization [facility] Address [address], [place] [address] Care Team Providers Name Role Phone Non Pn, Clinician MD Primary Care Provider Unavailable Reason for Visit Auth/Cert (Routine) Specialty Diagnoses / Procedures Referred By Contact Refer red To Contact Diagnoses Varicose veins of both lower extremities with complications Procedures RIGHT GREAT SAPHENOUS VEIN RADIOFREQUENCY ABLATION VEINS WITH BILATERAL AVULSION Referral ID Status Reason Start Date Expiration Date Visits Requ ested Visits Authorized [id number] 1 1 Encounter Details Date Type Department Care Team Description 12/14/2021 Surgery [facility] SURGERY J Luis Quinones, RI GHT GREAT SAPHENOUS CTR MD VEIN RADIOFREQUENCY [address] ABLATION VEINS WITH [place], [place] BILATERA L AVULSION [address] [phone] (Wo rk) Social History Tobacco Use Types Packs/Day Years Used Date Smoking Tobacco: Never Sex Assigned at Date Recorded Not on file documented as of this encounter Last Filed Vital Signs Vital Sign Reading Time Taken Comments Blood Pressure 165/98 12/14/2021 11:29 AM CDT Pulse - - Temperature 36.5 ??C (97.7 ??F) 12/14/2021 11:22 AM CDT Respiratory Rate 18 12/14/2021 11:22 AM CDT Oxygen Saturation 97% 12/14/2021 11:22 AM CDT Inhaled Oxygen Concentration - - Weight [...] CDT PPA call attempted via phone to [phone]. Message left with arrival time 1115, NPO [...] 12:00 AM CDT NAME: YANELI SANTIAGO CSN: [id number] CLINIC NOTE DATE OF SERVICE: 11/23/2021 : [...] was spent on this visit including non [id number] time. MD STEPHANIE TINOCO/CRUZ /[id number] documented in this encounter Procedure Notes J Luis Quinones MD - 12/14/2021 2:41 PM CDT NAME: Yaneli Santiago MR#: [id number] OPERATIVE REPORT DATE OF OPERATION: 12/14/2021 : [...] right great saphenous veins were cannulated with 7-Malagasy sheaths. Attention was made to the right [...] 12/25/2021 Appointment Vascular Surgery Gloria Quinones MD [address] [facility] N [address] (Wo rk) 12/25/2021 Appointment Vascular Surgery Nurse, [id number] Vsurg documented as of this encounter Procedures Procedure Name Priority Date/Time Associated Diagnosis Comme nts UNILATERAL RADIOFREQUENCY 12/14/2021 12:53 PM Varicose veins of both ABLATION VEINS WITH CDT lower extremities wit h BILATERAL AVULSION complications documented in this encounter Visit Diagnoses Diagnosis Varicose veins of both lower extremities with complications - Primary Varicose veins of both lower extremities with complications documented in this encounter Admitting Diagnoses Diagnosis [...] (SUBLIMAZE) injection 25-50 mcg 25-50 mcg, Intravenous, [id number], Other, 25 mcg for Mi ld to [...] (DEMEROL) injection 12.5 mg 12.5 mg, Intravenous, [id number], Shiverin g, Starting on Tue12/14/21 at 1144, [...] 1318 (Started - Provider: Caryl Fiore APRN, ANJEL) 2 g, Intravenous, Administer over 30 Min [...] from Pre-Op - Provider: Caryl Fiore APRN, ANJEL)1404 (Stopped - Provider: Caryl Fiore APRN, CRNA - Comment: Switch to gravity)1405 (Started - Provider: Caryl Fiore APRN, PROFESSIONAL ATHLETES COACH) 25 mL/hr, Intravenous, CONTINUOUS, Start ing on [...] (SUBLIMAZE) injection 25-50 mcg 25-50 mcg, Intravenous, [id number], Other, 25 mcg for Mild to Moderate [...] (DEMEROL) injection 12.5 mg 12.5 mg, Intravenous, [id number], Shiverin g, Starting on Tue12/14/21 at 1144, [...] Pre-op documented in this encounter Care Teams Delphi Developer Relationship Specialty Start Date End Date Non Pn, Clinician, PCP - General 05/20/21 [place] [address] documented as of this encounter
--- OUTSIDE RECORDS SUMMARY | 2021-12-24 15:41 | XMS_ITS | Encounter Summary ---
:1965 Author Organization [facility] Address [address] [place] [address] Care Team Providers Name Role Phone Non Pn, Clinician MD Primary Care Provider Unavailable Reason for Referral Procedure/Equipment (Routine) - Incomplete Specialty Diagnoses / Procedures Referred By Contact Refer red To Contact Diagnoses Varicose veins of both lower extremities with complications J Luis Quinones MD Procedures VL US Post-Op Closure Duplex Rt [address] [place], [place] [address] Referral ID Status Reason Start Date Expiration Date Visits V isits Requested Authorized [id number] Incomplete 11/09/2021 02/08/2023 1 1 Reason for Visit Procedure/Equipment (Routine) - Incomplete Specialty Diagnoses / Procedures Referred By Contact Refer red To Contact Diagnoses Varicose veins of both lower extremities with complications J Luis Quinones MD Procedures VL US Post-Op Closure Duplex Rt [address] [place], [place] [address] Referral ID Status Reason Start Date Expiration Date Visits V isits Requested Authorized [id number] Incomplete 11/09/2021 02/08/2023 1 1 Encounter Details Date Type Department Care Team Description 12/18/2021 Hospital Encounter Heart & Vascular J Luis Quinones V aricose veins of Center Vascular MD Jeffery both lower Lab [address] extremities [address] [facility], [address] [place] [address] [phone] Social History Tobacco Use Types Packs/Day Years [...] Appointment Vascular Surgery Gloria Quinones MD [address] [place] N [address] (Wo rk) 12/25/2021 Appointment Vascular Surgery Nurse, [id number] [place] documented as of this encounter Procedures Procedure Name Priority Date/Time Associated Diagnosis Comme nts US POST-OP Routine 12/18/2021 8:53 AM Varicose veins of bot h Results for this CLOSURE DUPLEX RT CDT lower extremities with procedure are in complications the results section. documented in this encounter Results US Post-Op Closure Duplex Rt (12/18/2021 8:53 AM CDT) Anatomical Region Laterality Modality Vascular, Other Ultrasound Specimen (Source) Anatomical Collection Method Collection Time Re ceived Time Location / / Volume Laterality 12/18/2021 8:28 AM CDT Impressions 12/19/2021 8:56 PM CDT Indication: Venous insufficiency Status post intra-operative right great saphenous vein radiofrequency ablation: 12/14/21 A duplex ultrasound was performed to roshan luate the right lower extremity for deep vein thrombosis. RIGHT LOWER EXTREMITY There is no evidence of blood flow in th e treated great saphenous vein. There is evidence of thrombus present at the saphenofemoral junction that fills <50% of the common femoral vein. The right proximal deep femoral, femoral and popliteal veins are widely patent demonstrating normal Doppler waveforms, with no evidence of deep vein thrombosis. The posterior tibial veins and peroneal veins are segmentally visualized and are widely patent and fully compressible where seen. The small saphenous vein is fully compre ssible with no evidence of thrombus. The gastrocnemius veins were segmentally visualized and are fully compressible where seen. The contralateral common femoral vein de monstrates phasic blood flow with no evidence of deep vein thrombosis. IMPRESSION <50% thrombus extension into the right c ommon femoral vein from the saphenofemoral junction. Patient will follow up in the Vascular S urgery Clinic. Procedure Note Delfin Ken MD - 12/19/2021Format ting of this note might be different from the original. IMPRESSION Indication: Venous insufficiency Status post intra-operative right great saphenous vein radiofrequency ablation: 12/14/21 A duplex ultrasound was performed to roshan luate the right lower extremity for deep vein thrombosis. RIGHT LOWER EXTREMITY There is no evidence of blood flow in th e treated great saphenous vein. There is evidence of thrombus present at the saphenofemoral junction that fills <50% of the common femoral vein. The right proximal deep femoral, femoral and popliteal veins are widely patent demonstrating normal Doppler waveforms, with no evidence of deep vein thrombosis. The posterior tibial veins and peroneal veins are segmentally visualized and are widely patent and fully compressible where seen. The small saphenous vein is fully compre ssible with no evidence of thrombus. The gastrocnemius veins were segmentally visualized and are fully compressible where seen. The contralateral common femoral vein de monstrates phasic blood flow with no evidence of deep vein thrombosis. IMPRESSION <50% thrombus extension into the right c ommon femoral vein from the saphenofemoral junction. Patient will follow up in the Vascular S urgery Clinic. J Luis Quinones MD [facility] V[facility] documented in this encounter Visit Diagnoses Diagnosis Varicose veins of both lower extremities with complications documented in this encounter Care Teams Lining Inserter Relationship Specialty Start Date End Date Non Pn, Clinician, PCP - General 05/20/21 [place] [address] documented as of this encounter
--- OUTSIDE RECORDS SUMMARY | 2021-12-24 15:41 | XMS_ITS | Encounter Summary ---
:1965 Author [facility] Address [address] [place] [address] Care Team Providers Name Role Phone Non Pn, Clinician MD Primary Care Provider Unavailable Reason for Visit Procedure/Equipment (Routine) - Closed Specialty Diagnoses / Procedures Referred By Contact Refer red To Contact Diagnoses Chronic pain of left knee Antonio Phelan [place] [address] [place] [address] Referral ID Status Reason Start Date Expiration Date Visits Requ ested Visits Authorized [id number] Closed 06/01/2021 08/31/2022 1 1 Encounter Details Date Type Department Care Team Description 06/05/2021 [facility] Antonio Crabtree Chronic daren n of left Procedure Laurita [id number] MD [place] [address] [address] [place], [place] [address] [address] [place], [place] [phone] (Work) [phone] Social History Tobacco Use Types Packs/Day Years Used Date Smoking Tobacco: Never Sex Assigned at Date Recorded Not on file documented as of this encounter Plan of Treatment Upcoming Encounters Date Type Specialty Care Team Description 12/25/2021 Appointment Vascular Surgery Gloria Quinones MD [address] [place] N [id number] (Wo rk) 12/25/2021 Appointment Vascular Surgery Nurse, [id number] Vsurg documented as of this encounter Procedures Procedure Name Priority Date/Time Associated Diagnosis Comme nts MR KNEE LT WO IV Routine 06/05/2021 8:46 AM Chronic pain of le ft Results for this CONT CDT knee procedure are i n the results section. documented in this encounter Results MR Knee Lt WO IV Cont (06/05/2021 8:46 AM CDT) Anatomical Region Laterality Modality Lower Extremity, Knee, Skeletal, Thigh, Leg, MSK Left Magnetic Resonance Specimen (Source) Anatomical Collection Method Collection Time Re ceived Time Location / / Volume Laterality 06/05/2021 8:15 AM CDT Impressions 06/05/2021 9:03 AM CDT TECHNIQUE: Routine MRI of the left knee was performed without contrast. COMPARISON: 03/31/2020 FINDINGS: MEDIAL COMPARTMENT: No significant belcher e in grade 2/3 chondromalacia in the central weightbearing femoral condyle. Grade 1/2 chondromalacia at the medial aspect of the tibial plateau is also unchanged. There is a high-grade partial tear of t he posterior root attachment of the meniscus which is similar to the prior exam. There is medial extrusion of the meniscal body which is also similar to the prior exam. No new meniscal tear is identified. LATERAL COMPARTMENT: There are no focal cartilage defects. There is no evidence of meniscal tear. PATELLOFEMORAL JOINT: There are no focal cartilage defects in the patellofemoral joint. There is no significant joint effusion. There is a small popliteal cyst without evidence of recent partial rupture . No osteocartilaginous bodies are ident ified. There is unchanged scarring in Hoffa's fat, including a 2.5 x 0.5 cm in the nodular appearing area (sagittal slice 21). LIGAMENTS AND TENDONS: There is mucoid d egeneration of the ACL with intact ligament fibers. There is unchanged linear intrasubstance signal in the PCL, which may represent mucoid degeneration or chronic sequela of a partial tear. The MCL, fib ular collateral ligament, biceps femoris tendon and iliotibial band are intact. There is no evidence of acute ligament injury. The popliteus muscle and tendons ar e normal. There is no evidence of injury to the posterolateral corner supporting structures. EXTENSOR MECHANISM: The quadriceps and p atellar tendons are normal. The medial retinaculum, medial patellofemoral ligament, and lateral retinaculum are normal. MARROW AND SOFT TISSUES: There is no abn ormal signal or evidence of soft tissue mass. IMPRESSION: 1. Stable appearance of high-grade parti al tear of the posterior root attachment of the medial meniscus with associated meniscal extrusion. No new meniscal tear identified. 2. Stable appearance of mild medial comp artment chondromalacia. 3. No evidence of acute ligament injury. Mucoid degeneration of the ACL. 4. Stable appearance of scarring in Davie a's fat. Procedure Note Ian Ayon MD - 06/05/2021Fo rmatting of this note might be different from the original. IMPRESSION TECHNIQUE: Routine MRI of the left knee was performed without contrast. COMPARISON: 03/31/2020 FINDINGS: MEDIAL COMPARTMENT: No significant belcher e in grade 2/3 chondromalacia in the central weightbearing femoral condyle. Grade 1/2 chondromalacia at the medial aspect of the tibial plateau is also unchanged. There is a high-grade partial tear of the posterior root attachment of the meniscus which is similar to the prior exam. There is medial extrusion of the meniscal body which is also similar to the prior exam. No new meniscal tear is identified. LATERAL COMPARTMENT: There are no focal cartilage defects. There is no evidence of meniscal tear. PATELLOFEMORAL JOINT: There are no focal cartilage defects in the patellofemoral joint. There is no significant joint effusion. There is a small popliteal cyst without evidence of recent partial rupture. No osteocartilaginous bodies are identified . There is unchanged scarring in Hoffa's fat, including a 2.5 x 0.5 cm in the nodular appearing area (sagittal slice 21). LIGAMENTS AND TENDONS: There is mucoid d egeneration of the ACL with intact ligament fibers. There is unchanged linear intrasubstance signal in the PCL, which may represent mucoid degeneration or chronic sequela of a partial tear. The MCL, fibular collatera l ligament, biceps femoris tendon and iliotibial band are intact. There is no evidence of acute ligament injury. The popliteus muscle and tendons are normal. There is no evidence of injury to the posterolateral corner s upporting structures. EXTENSOR MECHANISM: The quadriceps and p atellar tendons are normal. The medial retinaculum, medial patellofemoral ligament, and lateral retinaculum are normal. MARROW AND SOFT TISSUES: There is no abn ormal signal or evidence of soft tissue mass. IMPRESSION: 1. Stable appearance of high-grade parti al tear of the posterior root attachment of the medial meniscus with associated meniscal extrusion. No new meniscal tear identified. 2. Stable appearance of mild medial comp artment chondromalacia. 3. No evidence of acute ligament injury. Mucoid degeneration of the ACL. 4. Stable appearance of scarring in Davie a's fat. Antonio Phelan MD RAD MRI documented in this encounter Visit Diagnoses Diagnosis Chronic pain of left knee Pain in joint, lower leg documented in this encounter Care Teams Statistical Methods Teacher Relationship Specialty Start Date End Date Non Pn, Clinician, PCP - General 05/20/21 [place] [address] documented as of this encounter
--- OUTSIDE RECORDS SUMMARY | 2021-12-24 15:41 | XMS_ITS | Encounter Summary ---
:1965 Author Organization [facility] Address [address] [place] [address] Care Team Providers Name Role Phone Non Pn, Clinician Primary Care Provider Unavailable Reason for Visit Reason Comments Knee Problem Therapies (Routine) - Authorized Specialty Diagnoses / Procedures Referred By Contact Refer red To Contact Diagnoses Chronic [place] [address] [place] [address] Referral ID Status Reason Start Date Expiration Date Visits V isits Requested Authorized [id number] Authorized 06/10/2021 06/10/202203 22 Encounter Details Date Type Department Care Team Description 07/06/2021 [facility] Anuja Moran, PT Chronic pain of left knee (Primary Dx); - Physical Therapy [address] [facility] S S/P left knee arthroscopy [address] [place] [id number] Social History Tobacco Use Types Packs/Day Years Used Date Smoking Tobacco: Never Sex Assigned at Date Recorded Not on file documented as of this encounter Progress Notes Pb Moran, PT - 07/06/2021 10:45 AM CDT [facility] Physical Therapy-operative Knee Evaluation/Plan of Care Initial Certification Period: 07/06/2021 to 10/04/21 Referring Provider: Antonio Phelan Surgical Procedure: L partial medial meniscectomy Surgical Date: 07/03/21 Visit Diagnosis: 1. Chronic pain of left knee 2. S/P left knee arthroscopy Precautions: WBAT Orders: Evaluate & treat, Per protocol Onset/Referral Date: 07/03/21 SUBJECTIVE Reason for Visit: Pt is S/P L PMM. He reports that he has been able to amb without any AD. He has mild knee pain. He reports he had some discharge from his knee on Tuesday07/04/21. Has some mild discharge this morning but has follow up with Dr Phelan's team this afternoon. Patient Therapy Goals:Resume previous level of activity symptom free. Past Medical History: Past medical history, medication, and allergies were reviewed in the electronic medical record. History pertinent to therapy includes: There is no problem list on file for this patient. Recently Experienced (Red Flags): None Pain details: Current pain intensity level: 3/10 Aggravating factors:going up and down stairs Relieving factors: elevation Work/Leisure/Sport: works at [employer] (on his feet quite a bit) Patient History: Low Complexity: No personal factors or comorbidities that impact plan of care OBJECTIVE Observation: Pt has ELSA bandage around his L knee with mild serosanguinous discharge on anterior aspect. Steri-strips intact, does not appear to be actively draining. Gait Exam: Antalgic on flat surfaces. When navigating steps pt able to ascend with reciprocal pattern, descends with step-to pattern leading with L LE Edema:Minimal ROM: Right Left AROM PROM AROM PROM Knee Flexion 0-130 0-100 equal Strength: Quad set: Good SLR: Good, without extensor lag Well's DVT Clinical Decision Rule: Tested (high probability if score >= 3 - contact referring MD immediately) ?? Previously diagnosed DVT: 0 (no) ?? Active cancer (treatment ongoing or within previous 6 months or palliative): 0 (no) ?? Paralysis, paresis, or recent plaster immobilization of the lower extremeties: 0 (no) ?? Recently bedriddin >3 days and/ or major surgery within 4 weeks: 1 (yes) ?? Localized tenderness along the distribution of the deep venous system: 0 (no) ?? Entire leg swellin (no) ?? Calf swelling 3cm > symptomless side (measured 10 cm below tibial tuberosity): 0 (no) ?? Pitting edema; symptomatic leg only: 0 (no) ?? Collateral superficial veins (non-varicose): 0 (no) ?? Alternate diagnosis as likely or greater than that of DVT: -2 (yes) Total Score: -1 PT - Musculoskeletal - Knee Knee Outcome Survey - ADL (0-100%, 100 being best): 64 Clinical Examination: Low complexity: Addressed 1-2 elements from body structures and functions (see above), and/or functional limitations as noted below. Today's Intervention/Charges: Physical Therapy Evaluation was completed and the patient was educated on the condition, planned therapy intervention and expectations from treatment. TREATMENT DATE 07/06/21 VISIT NUMBER 1 THERAPEUTIC EXERCISE Minutes 15 Quad set 3 hold, 10x, good contraction Bridge 10x, cues to engage glutes prior to lifting SLR With quad set, 10x, mild extensor lag noted on last 2 reps Heel slide 10x to comfortable end range, tightness noted in medial knee LAQ 10x, cues for eccentric control Mini squat 10x with UE assist, cues to sit hips back Seated heel slide To comfortable end range, 10x Timed Code Treatment Minutes: 15 Total Treatment Minutes: 25 ROM of surgical limb L knee flexion AROM = 0-100 Pt was educated in the following HEP: Access Code: [email or web address] URL: [email or web address] Date: 07/06/2021 Prepared by: Pb Moran Exercises Supine Quad Set - 3-4 x [...] weekly - 2 sets - 10 reps Education/Handouts: Diagnosis Education, RICE principles, Signs of infection ASSESSMENT Therapist Impression/Summary: Pt presents to PT with S/P L PMM DOS 07/03/21. At this time pt displaysimpairments listed below. This is interfering with pt ability to navigate home/community environment, perform ADLs/IADLs, and overall decreased functional mobility. Pt would benefit from continued physical therapy in order to address deficits and progress towards listed goals. PT will be progressed per surgeon provided protocol, any additional instructions/guidance from surgical team, and pt tolerance. PT Clinical Presentation: Low Complexity: Stable and Uncomplicated Clinical Decision Making: Low Complexity Recommendations/Equipment: No additional recommendations at this time Significant Impairments: Pain, Muscle weakness, ROM Limitation Functional Limitations: difficulty meeting work demands, difficulty with gait and difficulty with stairs Goals/Functional Outcomes: HEP/Independent Management: Demonstrate independence with HEP and self- management following each treatment session Ambulation: Ambulate with normal gait pattern on uneven surfaces with minimal to no symptoms/limp in4 weeks. Ascend/descend stairs independently with reciprocal pattern with minimal to no symptoms and improvedlower extremity alignment in 6 weeks. Barriers to Goal Achievement or Learning: none Prognosis: Excellent PLAN Planned Intervention/Education: ADL/Self Management, Education, Electrical Stimulation, Gait training, Heat/ice, Manual Therapy, Neuromuscular Re- education, TENS application/self treatment, TherapeuticActivities, Therapeutic Exercise, Vasopneumatic compression Frequency: 1 x week Duration: 60 days Discharge Plan: Patient will be discharged from therapy when goals are achieved or patient plateaus in progress. Informed Consent: Patient and/or family in agreement with the care plan. Plan for Next Treatment: progress L knee ROM and strengthening as able, balance training as needed The gambling dealer is completed by the therapist and the referring clinician's electronic signature certifies medical necessity for the plan above. documented in this encounter Plan of Treatment Upcoming Encounters Date Type Specialty Care Team Description 12/25/2021 Appointment Vascular Surgery Gloria Quinones MD [address] [facility] N [address] (Wo rk) 12/25/2021 Appointment Vascular Surgery Nurse, [id number] Vsurg Scheduled Referrals Name Type Priority Associated Diagnoses Order S chedule Physical Therapy Referral Routine Chronic pain of left kne e Ordered: 06/10/2021 documented as of this encounter Visit Diagnoses Diagnosis Chronic pain of left knee - Primary Pain in joint, lower leg S/P left knee arthroscopy Other postprocedural status documented in this encounter Care Teams Entry Level Sales Representative Relationship Specialty Start Date End Date Non Pn, Clinician, PCP - General 05/20/21 [place] [address] documented as of this encounter
--- OUTSIDE RECORDS SUMMARY | 2021-12-24 15:41 | XMS_ITS | Encounter Summary ---
:1965 Author Organization [facility] Address [address] [place] [address] Care Team Providers Name Role Phone Non Pn, Clinician MD Primary Care Provider Unavailable Reason for Referral Procedure/Equipment (Routine) - Incomplete Specialty Diagnoses / Procedures Referred By Contact Refer red To Contact Diagnoses Varicose veins of both lower extremities with complications J Luis Quinones MD Procedures VL US Intra-Op Closure BV [address] [place], [place] [address] Referral ID Status Reason Start Date Expiration Date Visits V isits Requested Authorized [id number] Incomplete 11/12/2021 02/11/2023 1 1 Encounter Details Date Type Department Care Team Description 11/12/2021 Notes/Orders Heart & Vascular Rosemary Doe Varicos e veins of both Center Vascular & C, RN lower extr emities with Vein Clinic complications (Primary [address] Dx) [place], [place] [phone] Social History Tobacco Use Types Packs/Day Years Used Date Smoking Tobacco: Never Sex Assigned at Date Recorded Not on file documented as of this encounter Plan of Treatment Upcoming Encounters Date Type Specialty Care Team Description 12/25/2021 Appointment Vascular Surgery Gloria Quinones MD [address] [facility] N [id number] (Wo rk) 12/25/2021 Appointment Vascular Surgery Nurse, [id number] Vsurg documented as of this encounter Results VL US Intra-Op Closure BV (12/14/2021 2:18 PM [...] complications documented in this encounter Care Teams Cytogenetics Laboratory Manager Relationship Specialty Start Date End Date Non Pn, Clinician, PCP - General 05/20/21 [place] [address] documented as of this encounter
--- OUTSIDE RECORDS SUMMARY | 2021-12-24 15:41 | XMS_ITS | Clinical Summary ---
:1965 Author Organization [facility] Address [address], [place] [address] Care Team Providers Name Role Phone Non Pn, Clinician MD Primary Care Provider Unavailable Source Comments You are receiving this document as you are listed as the primary care provider,follow-up provider, or the patient has been referred to you for consultation.This is in compliance with the Medicare and Medicaid EHR Incentive Program,which states Providers who transition their patient to another setting of careor provider of care or refers their patient to another provider of care shouldprovide summarycare record for each transition of care or referral. [facility] Allergies Active Allergy Reactions Severity Noted Date Comments Amoxicillin Edema,generalized 08/19/2011 Pt gets fa cial edema and numbn ess Inhaled Anticholinergic Other, see comments 02/05/2016 Digestive issues Agents Medications Medication Sig Dispensed Refills Start Date End Date Status UNKNOWN MEDICATION Indications: PN: 0 06/14/2006 Active acetaminophen (TYLENOL) Take 500-1,000 0 07/03/2021 Active 500 MG tablet mg by mouth. naproxen (NAPROSYN) 500 Take 1 Tablet 60 Tablet 1 07/13/2021 Active MG tablet (500 mg) by mouth two times daily as needed for Pain. traMADol (ULTRAM) 50 MG Take 1 Tablet 10 Tablet 0 12/14/2021 Active tablet (50 mg) by mouth every 6 hours as needed. Active Problems Problem Noted Date Varicose veins of both lower extremities with complica tions 09/23/2021 Encounters Date Type Specialty Care Team Description 12/18/2021 Office Visit Vascular Surgery Nurse, [id number] Varicose ve ins of both Vsurg lower extremiti es with complications ( Primary Dx) 12/18/2021 Hospital Encounter Vascular Surgery J Luis Quinones V aricose veins of both Jeffery, lower extremiti es with complications 12/14/2021 Anesthesia Event General Surgery Melvin Dickey MD 12/14/2021 Hospital Encounter Vascular Surgery J Luis Quinones V aricose veins of both Jeffery, lower extremiti es with complications 12/14/2021 Surgery General Surgery J Luis Quinones RIGHT GR EAT SAPHENOUS MD Jeffery VEIN RADIOFREQU ENCY ABLATION VEINS WITH BILATERAL AVULS ION 12/14/2021 Hospital Encounter General Surgery J Luis Quinones MD 12/11/2021 Lab Visit Laboratory Encounter for screening for o ther viral diseases (Primary Dx) 11/23/2021 Office Visit Orthopedics Antonio Phelan Chronic pain of left M, knee (Primary D x) 11/12/2021 Notes/Orders Vascular Surgery Rosemary Doe Varicos e veins of both C, RN lower extremiti es with complications ( Primary Dx) 11/09/2021 Office Visit Vascular Surgery J Luis Quinones Varicos e veins of both A, lower extremiti es with complications ( Primary Dx) 11/09/2021 Hospital Encounter Vascular Surgery Paulina Gutierrez 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, 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, 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 11/06/2021 Telephone Orthopedics Antonio Phelan QUESTIONS, Gordon Robles MD from Last 3 Months Immunizations Name Administration Dates Next Due Flu Vac Preserv Free (3+yrs) 03/29/2006 HepA-HepB ([place], 18+ yrs) 09/23/2008, 2008 TDAP ([place]) 2008 Td 01/11/1997, 05/11/1993 Social History Tobacco Use Types Packs/Day Years Used Date Smoking Tobacco: Never Sex Assigned at Date Recorded Not on file Last Filed Vital Signs Vital Sign Reading Time Taken Comments Blood Pressure 103/63 12/14/2021 3:25 PM CDT Pulse 74 12/14/2021 3:25 PM CDT Temperature 36.6 ??C (97.9 ??F) 12/14/2021 2:30 PM CDT Respiratory Rate 16 12/14/2021 3:25 PM CDT Oxygen Saturation 100% 12/14/2021 3:25 PM CDT Inhaled Oxygen Concentration - - Weight 102.1 kg (225 lb) 07/31/2021 9:08 AM CDT Height 182.9 cm (6') 07/31/2021 9:08 AM CDT Body Mass Index 30.52 07/31/2021 9:08 AM CDT Plan of Treatment Upcoming Encounters Date Type Specialty Care Team Description 12/25/2021 Appointment Vascular Surgery Gloria Quinones MD [address] [facility] N [address]396 (Wo rk) 12/25/2021 Appointment Vascular Surgery Nurse, [id number] Vsurg Health Maintenance Due Date Last Done Comments Colon Cancer Screening Plan 1965 Due Hep C Screening (Preventive 1965 Services) PSA Screening Discussion 1965 COVID-19 Vaccine (#1) 01/21/1968 HIV Screening (Preventive 1983 Services) Adult Preventive Visit 07/21/1985 Cholesterol 07/21/2002 HepB (3) 02/23/2009 09/23/2008, 2008 DTaP/Tdap/Td (10 - Tdap) 04/29/2029 04/30/2019, 11/27/2018, 01/17/2011, Additional history exists HepA Completed 01/04/2020, 12/25/2019, 09/23/2008, Additional history exists Zoster/Shingles Completed 01/04/2020, 11/02/2019 Influenza Completed 11/13/2021, 11/07/2020, 11/02/2019, Additional history exists Hib Aged Out No longer eligib le based on patient 's age to complete this topic IPV (Polio) Aged Out No longer eligib le based on patient 's age to complete this topic MCV4 Aged Out No longer eligib le based on patient 's age to complete this topic Pneumococcal Aged Out No longer eligib le based on patient 's age to complete this topic Procedures Procedure Name Priority Date/Time Associated Diagnosis Comme nts US POST-OP CLOSURE Routine 12/18/2021 8:53 Varicose veins o f Results for this DUPLEX RT AM CDT both lower procedure are i n extremities with the results complications section. US INTRA-OP CLOSURE Routine 12/14/2021 2:18 Varicose veins of Results for this BV PM CDT both lower procedure are i n extremities with the results complications section. SPINAL BLOCK Routine 12/14/2021 1:10 Results for this PM CDT procedure are i n the results section. UNILATERAL 12/14/2021 12:53 Varicose veins of RADIOFREQUENCY PM CDT both lower ABLATION VEINS WITH extremities with BILATERAL AVULSION complications 2019 NOVEL CORONAVIRUS Routine 12/11/2021 10:51 Encounter for Results for this AM CDT screening for other procedur e are in viral diseases the results section. US LOWER EXTREMITY Routine 11/09/2021 9:10 Varicose veins o f Results for this BILAT VENOUS REFLUX AM CDT both lower procedur e are in extremities with the results complications section. from Last 3 Months Results US Post-Op Closure Duplex Rt (12/18/2021 [...] the Vascular S urgery Clinic. J Luis SELLERS VASCULAR US VL US Intra-Op Closure BV (12/14/2021 2:18 [...] detected in the treated great saphenous vein. Ramoncito A Joni MD RAD VASCULAR US Spinal Block (12/14/2021 1:10 PM CDT) Narrative EXTERNAL RESULTS - 12/14/2021 1:10 PM CD T Caryl Fiore APRN, SEWING MACHINES SALESPERSON ? 12/14/2021 ??1:12 PM Spinal Block Performed [...] City/State/ZIP Code Phon e Number EXTERNAL RESULTS Asymptomatic - 2019 Novel Coronavirus (COVID-19) (12/11/2021 10:51 AM CDT) [facility] Method Time Signature COVID-19 Not Not 12/12/2021 [facility] Interpretation Detected Detected 12:35 AM [facility]EN[facility]AL [facility] CDT Source Nares, left 12/12/2021 [facility] and right 12:35 AM CENTRAL LAB CDT Specimen Anatomical Collection Method Collection Time Receive d Time (Source) Location / / Volume Laterality Swab (Source Non-blood 12/11/2021 10:51 12/11/2021 Required) Collection / AM CDT 10:58 AM CDT Unknown Narrative [facility] - 12/12/2021 12:35 AM CDT Test performed by Diesel Electrician Mediated Amplification. TMA has been shown to be equivalent to commercial real-time PCR t ests. This test has been authorized by the FDA under Emergency Use Authorization (E UA) for use by authorized laboratories. Ronnell Fraga MD LAB_1 Performing Organization Address City/State/ZIP Code Phon e Number [facility] [address] [address] VL US Lower Extremity Bilat Venous Reflux (11/09/2021 9:10 [...] competent and free of thrombus. Paulina Gutierrez APRN, DOMESTIC HOUSEKEEPER RAD VASCULAR US from Last 3 Months Insurance Payer Benefit Plan / Subscriber ID Effective Phone Address T ype Group Dates [facility] [id number] 2020-Pre [id number] [address] sent [id number] [place] [address] [facility] UNITED [id number] 2015-Pr [id number] [address] HEALTHCARE esent [id number] [place] [address] Rolf Santiago Personal/Famil Self 1965 [address] (Home) [facility] [place] [address] Advance Directives Latest Code Status on File Code Status Date Activated Date Inactivated Comments Full Code 12/14/2021 12:33 PM 12/14/2021 5:36 PM Care Teams Cable Dispatcher Relationship Specialty Start Date End Date Non Pn, Clinician, PCP - General 05/20/21 [place] [address]
--- OUTSIDE RECORDS SUMMARY | 2021-12-24 15:41 | XMS_ITS | Encounter Summary ---
:1965 Author [facility] Address [address] [place] [address] Care Team Providers Name Role Phone Non Pn, Clinician MD Primary Care Provider Unavailable Reason for Visit Reason Comments Post-Op Check Encounter Details Date Type Department Care Team Description 07/06/2021 Office Visit [place] [address] Latonya Odonnell PA -C Postoperative follow-up Orthopedics [address] [place] (Primary Dx) [address] [place] [place] [address] [address] [place] [address] [phone] Social History Tobacco Use Types Packs/Day Years Used Date Smoking Tobacco: Never Sex Assigned at Date Recorded Not on file documented as of this encounter Last Filed Vital Signs Vital Sign Reading Time Taken Comments Blood Pressure - - Pulse - - Temperature - - Respiratory Rate - - Oxygen Saturation - - Inhaled Oxygen Concentration - - Weight 103 kg (227 lb) 07/06/2021 1:06 PM CDT Height 182.9 cm (6') 07/06/2021 1:06 PM CDT Body Mass Index 30.79 07/06/2021 1:06 PM CDT documented in this encounter Progress Notes Latonya Odonnell PA-C - 07/06/2021 1:00 PM CDT Orthopedics - Latonya Santiago 55 y.o. Male : 1965 PN HP Date of Service: 07/06/2021 Chief Complaint: post op follow up after a left knee arthroscopy and partial medial meniscectomy. Knee arthroscopy with extensive debridement Occupational Health Nurse Present: no HPI: Rolf Santiago is a 55 y.o. male who presents for left knee post operative drainage after a left knee arthroscopy and partial medial meniscectomy with extensive debridement on 07/03/[address] Phelan. Seen on 07/04/21 in the ED on POD1 with bloody incisional drainage. on call pharmacy technician surgeon was consulted and advised new dressing and compressive bandage. Patient here for follow up. He has noted minimal drainage from the medial incision today. Pain well controlled. There is no problem list on file for this patient. Social History Tobacco Use ??? Smoking status: Never Smoker ??? Smokeless tobacco: Not on file Substance Use Topics ??? Alcohol use: Not on file ??? Drug use: Not on file Allergies: Amoxicillin and Inhaled anticholinergic agents Outpatient Medications Prior to Visit Medication Sig Dispense Refill ??? UNKNOWN MEDICATION Indications: PN: ??? UNKNOWN MEDICATION Indications: PN: No facility-administered medications prior to visit. Review of Systems: Pertinent review of systems negative except for what is noted in the HPI. Physical Exam: Constitutional: Well developed, well nourished, no acute distress, non-toxic appearance. Left knee: quarter size area of dry serosaginous drainage on 4x4 gauze. The incision is closed and currently there is no drainage. No joint effusion. There is post operative ecchymosis. ROM is near full. Non-tender. New steri strips a 4x4 and ELSA applied. Assessment and Plan: 1.) Post op check following left knee arthroscopy and partial medial meniscectomy with extensive debridement on 07/03/[address] Phelan - currently there is no drainage but he did have some this am. Incision is closed without active drainage. No effusion or evidence to suggest infection. I applied new steri strips 4X4 and gauze. - he will follow up with Dr. Phelan later this week if there is ongoing drainage but if it stops in the next 24-48 hours he can cancel that apt and keep routine follow up apt. Latonya Odonnell PA-C 1:32 PM 07/06/2021 ICD-10-CM 1. Postoperative follow-up Z09 documented in this encounter Plan of Treatment Upcoming Encounters Date Type Specialty Care Team Description 12/25/2021 Appointment Vascular Surgery Gloria Quinones MD [address] [place] [address] [id number] (Wo rk) 12/25/2021 Appointment Vascular Surgery Nurse, P6500 Vsurg documented as of this encounter Visit Diagnoses Diagnosis Postoperative follow-up - Primary Follow-up examination, following unspeci fied surgery documented in this encounter Care Teams Container Shop Welder Relationship Specialty Start Date End Date Non Pn, Clinician, PCP - General 05/20/21 [place] [address] documented as of this encounter
--- OUTSIDE RECORDS SUMMARY | 2021-12-24 15:41 | XMS_ITS | Encounter Summary ---
:1965 Author Organization [facility] Address [address], [place] [address] Care Team Providers Name Role Phone Non Pn, Clinician MD Primary Care Provider Unavailable Reason for Referral Therapies (Routine) - Authorized Specialty Diagnoses / Procedures Referred By Contact Refer red To Contact Diagnoses [place] [address] [place] [address] Referral ID Status Reason Start Date Expiration Date Visits V isits Requested Authorized [id number] Authorized 06/10/2021 06/10/2022 30 Scheduling Instructions Your provider has recommended an appoint ment with [facility]. You can quickly make your appointment online at [employer]/schedule. You can also call [phone] for help scheduling yo ur appointment. We suggest you call your health insurance company about your cove rage and benefits for this appointment. Encounter Details Date Type Department Care Team Description 06/10/2021 Notes/Orders [facility] Antonio Rothman, Chroni c pain of left Orthopaedics & Sports knee (Primary Dx) Medicine [address] [address] [place] [id number] [phone] Social History Tobacco Use Types Packs/Day Years Used Date Smoking Tobacco: Never Sex Assigned at Date Recorded Not on file documented as of this encounter Plan of Treatment Upcoming Encounters Date Type Specialty Care Team Description 12/25/2021 Appointment Vascular Surgery Gloria Quinones MD [address] [facility] N [address] (Wo rk) 12/25/2021 Appointment Vascular Surgery Nurse, P6500 Vsurg Scheduled Referrals Name Type Priority Associated Diagnoses Order S chedule Physical Therapy Referral Routine Chronic pain of left kne e Ordered: 06/10/2021 documented as of this encounter Visit Diagnoses Diagnosis Chronic pain of left knee - Primary Pain in joint, lower leg documented in this encounter Care Teams Clinical Research Associate Relationship Specialty Start Date End Date Non Pn, Clinician, PCP - General 05/20/21 [place] [address] documented as of this encounter
--- OUTSIDE RECORDS SUMMARY | 2021-12-24 15:41 | XMS_ITS | Encounter Summary ---
:1965 Author Organization [email or web address] Address [address] [place] [address] Care Team Providers Name Role Phone Non Pn, Clinician MD Primary Care Provider Unavailable Reason for Visit Procedure/Equipment (Routine) - Incomplete Specialty Diagnoses / Procedures Referred By Contact Refer red To Contact Diagnoses Hip pain Rene Pitts, DO Procedures XR Pelvis W Lt Lateral Hip [address] [place] [address] Referral ID Status Reason Start Date Expiration Date Visits V isits Requested Authorized [id number] Incomplete 07/31/2021 10/30/2022 1 1 Encounter Details Date Type Department Care Team Description 07/31/2021 Ancillary Procedure [place] Rene Case, H ip pain [place] [address] DO Radiology [address] [address] [place] [address] [place] [phone] (Wo rk) [address] [phone] Social History Tobacco Use Types Packs/Day Years Used Date Smoking Tobacco: Never Sex Assigned at Date Recorded Not on file documented as of this encounter Plan of Treatment Upcoming Encounters Date Type Specialty Care Team Description 12/25/2021 Appointment Vascular Surgery Gloria Quinones MD [address] [place] [address] [address] (Wo rk) 12/25/2021 Appointment Vascular Surgery Nurse, P6500 Vsurg documented as of this encounter Procedures Procedure Name Priority Date/Time Associated Diagnosis Comme nts XR PELVIS W LT Routine 07/31/2021 9:18 AM Hip pain Results for this LATERAL HIP CDT procedure are i n the results section. documented in this encounter Results XR Pelvis W Lt [...] this encounter Visit Diagnoses Diagnosis Hip pain Pain in joint, pelvic region and thigh documented in this encounter Care Teams Billing Analyst Relationship Specialty Start Date End Date Non Pn, Clinician, PCP - General 05/20/21 [place] [address] documented as of this encounter
--- OUTSIDE RECORDS SUMMARY | 2021-12-24 15:41 | XMS_ITS | Encounter Summary ---
:1965 Author Organization [facility] Address [address] [place] [address] Care Team Providers Name Role Phone Non Pn, Clinician MD Primary Care Provider Unavailable Reason for Referral Procedure/Equipment (Routine) - Incomplete Specialty Diagnoses / Procedures Referred By Contact Refer red To Contact Diagnoses Varicose veins of both lower extremities with complications J Luis Quinones MD Procedures VL US Lower Extremity Rt Venous Duplex DVT [address] [place], [place] [address] Referral ID Status Reason Start Date Expiration Date Visits V isits Requested Authorized [id number] Incomplete 12/18/2021 03/19/2023 1 1 Reason for Visit Reason Comments Post Op Exam R GSV RFA and ted avulsions Encounter Details Date Type Department Care Team Description 12/18/2021 Office Visit Heart & Vascular Nurse, P6500 Varicose ve ins of both Center Vascular & Vsurg lower extr emities with Vein Clinic complications (Primary [address] Dx) [place], [place] [id number] Social History Tobacco Use Types Packs/Day Years Used Date Smoking Tobacco: Never Sex Assigned at Date Recorded Not on file documented as of this encounter Patient Instructions Patient InstructionsRosemary Doe RN - 12/18/2021 9:00 AM CDT Please take 325 mg of Aspirin daily x 1 month. You will come back on 12/25/21 for a repeat DVT ultrasound. documented in this encounter Progress Notes Rosemary Doe RN - 12/18/2021 9:00 AM CDT Department of Vascular Surgery: Post-Operative Visit IMPRESSION: Patient is seen post-operatively following: PROCEDURE PERFORMED: 1. Right great saphenous vein radiofrequency ablation. 2. Bilateral secondary varicose vein dissection 30 incisions right leg 11 incisions left leg. Modifier 22 for an excess number of avulsions requiring 50% more operative time to perform. performed by Dr. Quinones on 12/14/21. SUBJECTIVE: Patient notes: Bruising noted with some improvement. Patient denies skin numbness. Pt informed that this is normal and may take up to six months or longer to resolve. Pt reports mild pain only that is tolerable with PRN pain medication. OBJECTIVE: Physical Exam: On examination the surgical site evidences: Healing well with normal post surgical scarring, no signs of infection, no sutures used, avulsion sites healing well. On ultrasound today: -Less then 50% thrombus extension into Right CFV Per vascular protocol will start taking ASA 325 mg po qd x 30 days. Will come back on 12/25/21 for a repeat R leg DVT study. Can discontinue ASA at this time if resolved. ASSESSMENT: Post-operative status (Z09). PLAN: Patient is advised to gradually resume activities as comfortable. Within these confines of resumption of activities, the patient may return to work when comfortable. Patient encouraged not to soak incision sites until they are completely healed. Overall Fernando feels well and will call if he has any Rightleg pain or areas that get hot/swollen. documented in this encounter Plan of Treatment Upcoming Encounters Date Type Specialty Care Team Description 12/25/2021 Appointment Vascular Surgery Gloria Quinones MD [address] [place] [address] [address] (Wo rk) 12/25/2021 Appointment Vascular Surgery Nurse, P6500 Vsurg Scheduled Orders Name Type Priority Associated Diagnoses Order S chedule VL US Lower Extremity Imaging New Routine Varicose veins of b oth Expected: Rt Venous Duplex DVT lower extremities wi 12/18/2021 complications (Approximate), Expires: 2022 documented as of this encounter Visit Diagnoses Diagnosis Varicose veins of both lower extremities with complications - Primary documented in this encounter Care Teams Electronics Assembler Relationship Specialty Start Date End Date Non Pn, Clinician, PCP - General 05/20/21 [place] [address] documented as of this encounter
--- OUTSIDE RECORDS SUMMARY | 2021-12-24 15:41 | XMS_ITS | Encounter Summary ---
:1965 Author Organization [facility] Address [address] [place] [address] Care Team Providers Name Role Phone Non Pn, Clinician MD Primary Care Provider Unavailable Reason for Visit Procedure/Equipment (Routine) - Incomplete Specialty Diagnoses / Procedures Referred By Contact Refer red To Contact Diagnoses Chronic pain of left knee Antonio Phelan MD Procedures XR Knee Lt 3 [address] [address] [place] [address] Referral ID Status Reason Start Date Expiration Date Visits V isits Requested Authorized [id number] Incomplete 06/01/2021 08/31/2022 1 1 Encounter Details Date Type Department Care Team Description 06/01/2021 [address] [place] Antonio Crabtree Chronic daren n of left Procedure [place] [address] MD [place] knee Radiology [address] [address] [place], [place] [address] [address] [place], [place] [phone] [address] (Work) [phone] Social History Tobacco Use Types Packs/Day Years Used Date Smoking Tobacco: Never Sex Assigned at Date Recorded Not on file documented as of this encounter Plan of Treatment Upcoming Encounters Date Type Specialty Care Team Description 12/25/2021 Appointment Vascular Surgery Gloria Quinones MD [address] [place] N [address] (Wo rk) 12/25/2021 Appointment Vascular Surgery Nurse, P6500 Vsurg documented as of this encounter Procedures Procedure Name Priority Date/Time Associated Diagnosis Comme nts XR KNEE LT 3 VIEWS Routine 06/01/2021 11:44 AM Chronic pain of left Results for this CDT knee procedure are i n the [...] leg documented in this encounter Care Teams Cattery Operator Relationship Specialty Start Date End Date Non Pn, Clinician, PCP - General 05/20/21 [place] [address] documented as of this encounter
--- OUTSIDE RECORDS SUMMARY | 2021-12-24 15:41 | XMS_ITS | Encounter Summary ---
:1965 Author Organization [facility] Address [address] [place] [address] Care Team Providers Name Role Phone Non Pn, Clinician MD Primary Care Provider Unavailable Reason for Referral (Routine) - New Request Specialty Diagnoses / Procedures Referred By Contact Refer red To Contact Diagnoses Chronic pain of left knee Antonio Phelan MD Procedures Triamcinolone Acet Inj Nos: (per 10 mg) [address] [place] [address] Referral ID Status Reason Start Date Expiration Date Visits V isits Requested Authorized [id number] New Request 11/23/2021 02/22/2023 1 1 Reason for Visit Reason Comments Follow-up Left knee Encounter Details Date Type Department Care Team Description 11/23/2021 Office Visit [facility] Antonio Rothman, Chroni c pain of left Orthopaedics & Sports MD knee (Primary Dx) Medicine [address] [address] [place] [address] [phone] Social History Tobacco Use Types Packs/Day Years Used Date Smoking Tobacco: Never Sex Assigned at Date Recorded Not on file documented as of this encounter Patient Instructions Patient InstructionsAntonio Phelan MD - 11/23/2021 11:20 AM CDT Thank you for being seen today at [facility] Orthopedics Your Diagnosis is: Left knee pain, early arthritis, possible IT band syndrome Your Recommended Treatment is: Injection today Consider physical therapy in the future if not improving Follow-up as needed INJECTION INSTRUCTIONS: You were provided an injection [...] treatment options. Antonio Phelan MD Orthopaedic Surgery [phone] documented in this encounter Progress Notes Antonio Phelan MD - 11/23/2021 12:00 AM CDT NAME: ROLF SANTIAGO CSN: [id number] CLINIC NOTE DATE OF SERVICE: 11/23/2021 : 1965 PROCEDURES PERFORMED: Left knee arthroscopy, extensive debridement of the anterior interval, partialmedial meniscectomy. DATE OF OPERATION: July 03, 2021. INTERVAL HISTORY: Rolf presents today overall doing okay. He states [...] was spent on this visit including non drou-py-hhed time. MD STEPHANIE TINOCO/AQS /[id number] documented in this encounter Plan of Treatment Upcoming Encounters Date Type Specialty Care Team Description 12/25/2021 Appointment Vascular Surgery Gloria Quinones MD [address] [facility] N [address] (Wo rk) 12/25/2021 Appointment Vascular Surgery Nurse, [id number] Vsurg documented as of this encounter Visit Diagnoses Diagnosis Chronic pain of left knee - Primary Pain in joint, lower leg documented in this encounter Care Teams Material Flow Analyst Relationship Specialty Start Date End Date Non Pn, Clinician, PCP - General 05/20/21 [place] [address] documented as of this encounter
--- OUTSIDE RECORDS SUMMARY | 2021-12-24 15:41 | XMS_ITS | Encounter Summary ---
:1965 Author Organization [facility] Address [address] [place] [address] Care Team Providers Name Role Phone Non Pn, Clinician MD Primary Care Provider Unavailable Reason for Referral Procedure/Equipment (Routine) - Incomplete Specialty Diagnoses / Procedures Referred By Contact Refer red To Contact Diagnoses Varicose veins of both lower extremities with complications J Luis Quinones MD Procedures Case Request OR - General/Vascular Surg: RIGHT GREAT SAPHENOUS VEIN RADIOFREQUENCY ABLATION VEINS WITH BILATERAL AVULSION [address] [place], [place] [address] Referral ID Status Reason Start Date Expiration Date Visits V isits Requested Authorized [id number] Incomplete 11/09/2021 02/08/2023 1 1 Procedure/Equipment (Routine) - Incomplete Specialty Diagnoses / Procedures Referred By Contact Refer red To Contact Diagnoses Varicose veins of both lower extremities with complications J Luis Quinones MD Procedures US Post-Op Closure Duplex Rt [address] [place], [place] [address] Referral ID Status Reason Start Date Expiration Date Visits V isits Requested Authorized [id number] Incomplete 11/09/2021 02/08/2023 1 1 Procedure/Equipment (Routine) - Incomplete Specialty Diagnoses / Procedures Referred By Contact Refer red To Contact Diagnoses Varicose veins of both lower extremities with complications J Luis Quinones MD Procedures VL US Intra-Op Closure Asc [address] [place], [place] [address] Referral ID Status Reason Start Date Expiration Date Visits V isits Requested Authorized [id number] Incomplete 11/09/2021 02/08/2023 1 1 Reason for Visit Reason Comments Follow-up Varicose veins Encounter Details Date Type Department Care Team Description 11/09/2021 Office Visit Heart & Vascular J Luis Quinones Vari cose veins of both Center Vascular & MD lower extremities with Vein Clinic [address] [place] complications (Primary [address] [place], [place] Dx) [place] [address] [phone] Social History Tobacco Use Types Packs/Day Years Used Date Smoking Tobacco: Never Sex Assigned at Date Recorded Not on file documented as of this encounter Last Filed Vital Signs Vital Sign Reading Time Taken Comments Blood Pressure 151/81 11/09/2021 9:39 AM CDT Pulse 61 11/09/2021 9:39 AM CDT Temperature - - Respiratory Rate - - Oxygen Saturation - - Inhaled Oxygen Concentration - - Weight - - Height - - Body Mass Index - - documented in this encounter Progress Notes Rosemary Doe RN - 11/09/2021 10:00 AM CDT Pre-op teaching done for pt having Right leg radiofrequency ablation (GSV RFA) and bilateral avulsions for varicose veins. General surgery packet was given and reviewed with pt. Pt was instructed on nothing to eat after midnight the evening prior to surgery and nothing to drink 4 hours prior to surgery. Pt instructed that they will need a meals on wheels driver to and from surgery. What to expect after varicose veinsurgery handout was also given to pt and reviewed. Pt stated understanding of teaching and had no further questions. Patient will call to schedule. J Luis Quinones MD - 11/09/2021 10:00 AM CDT VASCULAR SURGERY VEIN CONSULT NOTE Rolf Santiago a 56 y.o. male presents today for an evaluation regarding varicose veins. He complains of symptoms of lifestyle limiting pain, aching, and swelling on right calf and left calf for 5 years. Symptoms are aggravated by upright posture. Patient states that the symptoms have limited the amount of time that they can spend standing stationary on a daily basis, causing them to have to sit throughout the day, affecting work and ability to perform activities of daily living at home. He has denied gleaning benefit from 6 months of compression stocking utilization, leg elevation or use of oral analgesics. Risk factors for venous insufficiency include standing for long periods and positive family history for venous disease. The patient has had previous vein surgery on the right lower extremity with great saphenous ablation and avulsions done at an outside facility. The patient's medical record has been reviewed. Medications have been reviewed and updated. Review of Systems: A complete 14-point review of systems was reviewed and is negative except for findings as noted above. EXAM: BP (!) 151/81 (BP Location: Right Arm, BP Cuff Size: Regular - Long) Pulse 61 GEN: Appears healthy. Alert; in no acute distress. Pleasant. EXT: peripheral pulses normal, no pedal edema, no clubbing or cyanosis, cords non-palpable, lymphadenopathy absent, muscle exam 5/5 in upper and lower extremities, neuro grossly intact VARICOSE VEINS: Right Extremity: dilated tortuous and below knee on right lower extremity. Left Extremity: dilated tortuous and below knee on left lower extremity. SKIN: Left extremity: No hyperpigmentation, induration, or ulceration noted. Right extremity: No hyperpigmentation, induration, or ulceration noted. Imaging Studies Reviewed: The report and images for the ultrasound done today were reviewed by me and and the patient. US Lower Extremity Bilat Venous Reflux Narrative: Indication: Varicose veins History of right great saphenous vein radiofrequency ablation at outside facility. A duplex ultrasound study using Doppler was performed, to evaluate the bilateral lower extremity veins for valvular incompetence with the patient in a reverse Trendelenburg position. RIGHT LOWER EXTREMITY The great saphenous vein diameters: saphenofemoral junction: 7.9mm, immediately after the saphenofemoral junction: 8.7mm, proximal thigh: 4.0mm, proximal calf: 2.6mm. The great saphenous vein is incompetent from the saphenofemoral junction to the proximal thigh. The time of incompetence is greater than 500 milliseconds in length. The great saphenous vein is absent from the mid thigh to the knee. There is evidence of chronic non-occlusive superficial thrombophlebitis within the great saphenous vein at the proximal thigh. There is a competent posterior accessory great saphenous vein (3.4mm) draining into the saphenofemoral junction. The small saphenous vein at the proximal calf measures 3.1mm. The small saphenous vein is competent in its entirety. There is no evidence of incompetent data analytics specialist veins at any level. There is evidence of multiple incompetent varicose veins with the largest measuring 9.0mm. The time of incompetence is greater than 500 milliseconds. There is evidence of chronic non-occlusive superficial thrombophlebitis within a varicose vein at the mid thigh. The small saphenous vein is fully compressible with no evidence of thrombus. The gastrocnemius veins were segmentally visualized and are fully compressible where seen. The popliteal vein is incompetent and free of thrombus. The remainder of the deep venous system is competent and free of thrombus. LEFT LOWER EXTREMITY The great saphenous vein diameters: saphenofemoral junction: 7.2mm, immediately after the saphenofemoral junction: 6.8mm, proximal thigh: 4.0mm, knee: 2.9mm. The saphenofemoral junction is incompetent. The time of incompetence is greater than 500 milliseconds in length. The remainder of the great saphenous vein is competent. There is a competent anterior accessory great saphenous vein (3.1mm) draining into the saphenofemoral junction. The small saphenous vein diameters: saphenopopliteal junction: 2.3mm, immediately after the saphenopopliteal junction: 2.6mm. The saphenopopliteal junction and small saphenous vein are both competent. There is no evidence of incompetent data analytics specialist veins at any level. There is evidence of multiple incompetent varicose veins with the largest measuring 6.7mm. The time of incompetence is greater than 500 milliseconds. The great and small saphenous veins are fully compressible with no evidence of thrombus. The gastrocnemius veins were segmentally visualized and are fully compressible where seen. The common femoral, femoral and popliteal veins are incompetent and free of thrombus. The remainder of the deep venous system is competent and free of thrombus. 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 Right popliteal vein incompetence. Chronic non-occlusive superficial thrombophlebitis within the right great saphenous vein at the proximal thigh and in a varicose vein at the mid thigh. Left saphenofemoral junction incompetence. Left common femoral, femoral and popliteal vein incompetence. There are multiple incompetent varicosities within the right and left lower extremities. No evidence of right or left lower extremity deep vein thrombosis. ASSESSMENT: ICD-10-CM 1. Varicose veins of both lower extremities with complications I83.893 VL US Intra-Op Closure Asc VL US Post-Op Closure Duplex Rt Case Request OR - General/Vascular Surg: RIGHT GREAT SAPHENOUS VEIN RADIOFREQUENCY ABLATION VEINS WITH BILATERAL AVULSION Case Request OR - General/Vascular Surg: RIGHT GREAT SAPHENOUS VEIN RADIOFREQUENCY ABLATION VEINS WITH BILATERAL AVULSION CEAP classification for chronic venous disorders: Right Left Clinical 3 3 Etiology p p Anatomy s s Pathophys r r Venous Clinical Severity Score: PAIN: Daily, moderate activity limitation; occasional pain medication (MODERATE = 2) VARICOSE VEINS: Multiple; great saphenous veins, confined to calf and thigh (MODERATE = 2) VENOUS EDEMA: Afternoon swelling, above ankle (MODERATE = 2) COMPRESSION THERAPY: Full compliance, stockings plus elevation (SEVERE = 3) PLAN: Discussed and educated the patient on etiology, natural history and treatment options for varicose veins. We discussed continuation of conservative measures such as leg elevation and compression to help alleviate the symptoms above. The patient does have significant enough findings and symptoms of superficial venous reflux on ultrasound to warrant surgical intervention. We also discussed that given the findings of deep venous reflux on ultrasound, ongoing use of compression even after surgical intervention for superficial veins would be beneficial. Given all of the above, the patient was instructed to schedule surgery for left extremity avulsions and right extremity avulsions and great saphenous vein radiofrequency ablation. We discussed the goals, benefits and risks of the procedure including bleeding, and infection of theincision sites, DVT that may require initiation of anticoagulation therapy along with potential for phlebitis as well as saphenous/sural nerve neuralgia. The patient understands all of the above and wishes to proceed. Time spent with patient 30 minutes, greater than 50% of which was spent in consultation regarding diagnosis, treatment options, alternative therapies, complications, and expected outcomes. J Luis Quinones MD 11:10 AM 11/09/2021 documented in this encounter Plan of Treatment Upcoming Encounters Date Type Specialty Care Team Description 12/25/2021 Appointment Vascular Surgery Gloria Quinones MD [address] [facility] N [address] (Wo rk) 12/25/2021 Appointment Vascular Surgery Nurse, [id number] Vsurg Scheduled Orders Name Type Priority Associated Diagnoses Order S chedule VL US Intra-Op Imaging New Routine Varicose veins of both Exp ected: 11/09/2021 Closure Asc lower extremities with (Appr oximate), complications Expires: 11/09 documented as of this encounter Results VL US Post-Op Closure Duplex Rt (12/18/2021 8:53 [...] S urgery Clinic. J Luis Quinones MD [facility] VASCULAR US documented in this encounter Visit Diagnoses Diagnosis Varicose veins of both lower extremities with complications - Primary Varicose veins of both lower extremities with complications documented in this encounter Care Teams Decontamination Worker Relationship Specialty Start Date End Date Non Pn, Clinician, PCP - General 05/20/21 [place] [address] documented as of this encounter
--- OUTSIDE RECORDS SUMMARY | 2021-12-24 15:42 | XMS_ITS | Encounter Summary ---
:1965 [facility] Address [address], [place] [address] Care Team Providers Name Role Phone Unavailable Primary Care Provider Unavailable Encounter Details Date Type Department Care Team Description 03/29/2006 Nursing Visit [facility] [place] [address] [facility] [address] [place] [address] [place], [place] [phone] Social History Tobacco Use Types Packs/Day Years Used Date Smoking Tobacco: Never Assessed Sex Assigned at Date Recorded Not on file documented as of this encounter Plan of Treatment Upcoming Encounters Date Type Specialty Care Team Description 12/25/2021 Appointment Vascular Surgery Gloria Quinones MD [address] [facility] N [id number] (Wo rk) 12/25/2021 Appointment Vascular Surgery Nurse, [id number] [place] documented as of this encounter Visit Diagnoses Not on filedocumented in this encounter
--- OUTSIDE RECORDS SUMMARY | 2021-12-24 15:42 | XMS_ITS | Encounter Summary ---
:1965 Author Organization [facility] Address [address] [place] [address] Care Team Providers Name Role Phone Unavailable Primary Care Provider Unavailable Reason for Visit Procedure/Equipment (Routine) - Incomplete Specialty Diagnoses / Procedures Referred By Contact Refer red To Contact Diagnoses Acute pain of left knee Antonio Phelan MD Procedures XR Knee Lt 3 Views [address] [place] [address] Referral ID Status Reason Start Date Expiration Date Visits V isits Requested Authorized [id number] Incomplete 03/17/2020 06/16/2021 1 1 Encounter Details Date Type Department Care Team Description 03/17/2020 [facility] Antonio Crabtree Acute pain of left Procedure Laurita [address] MD [place] knee Radiology [address] [address] [place], [place] [address] [address] [place], [place] [phone] (Work) [phone] Social History Tobacco Use Types Packs/Day Years Used Date Smoking Tobacco: Never Sex Assigned at Date Recorded Not on file documented as of this encounter Plan of Treatment Upcoming Encounters Date Type Specialty Care Team Description 12/25/2021 Appointment Vascular Surgery Gloria Quinones MD [address] [place] [address] [address] (Wo rk) 12/25/2021 Appointment Vascular Surgery Nurse, [id number] Vsurg documented as of this encounter Procedures Procedure Name Priority Date/Time Associated Diagnosis Comme nts XR KNEE LT 3 VIEWS Routine 03/17/2020 10:53 AM Acute pain of l eft Results for this COMMUNITY ARTS WORKER knee procedure are i n the results section. documented in this encounter Results XR Knee Rt 1-2 Views Comparison (03/17/2020 10:53 AM COMMUNITY ARTS WORKER) Anatomical Region Laterality Modality Lower Extremity, Knee Digital Radiograph y Specimen (Source) Anatomical Collection Method Collection Time Re ceived Time Location / / Volume Laterality 03/17/2020 10:41 AM COMMUNITY ARTS WORKER Impressions 03/17/2020 12:08 PM COMMUNITY ARTS WORKER COMPARISON: ??None. FINDINGS: ?? Right knee: 3 views. No acute fractures or dislocations. Mild narrowing of the medial compartment. Lateral compartment is unremarkable. Mild lateral patellar tilt with mild degenerative arthrosis of the patellofemoral compartment. Left knee: 4 views. No acute fractures o r dislocations. Mild narrowing of the medial compartment is likely degenerative. Lateral compartment is unremarkable. Mild lateral patellar tilt with mild degener ative arthrosis of the patellofemoral co mpartment. No significant joint effusion. Procedure Note Shiva Elliott MD - 03/17/2020Formatti ng of this note might be different from the original. IMPRESSION COMPARISON: None. FINDINGS: Right knee: 3 views. No acute fractures or dislocations. Mild narrowing of the medial compartment. Lateral compartment is unremarkable. Mild lateral patellar tilt with mild degenerative arthrosis of the patellofemoral compartment. Left knee: 4 views. No acute fractures o r dislocations. Mild narrowing of the medial compartment is likely degenerative. Lateral compartment is unremarkable. Mild lateral patellar tilt with mild degenerative arthrosis of the patellofemoral compartment. No si gnificant joint effusion. Antonio Phelan MD RAD GD XR Knee Lt 3 Views (03/17/2020 10:53 AM COMMUNITY ARTS WORKER) Anatomical Region Laterality Modality Lower Extremity, Knee Digital Radiograph y Specimen (Source) Anatomical Collection Method Collection Time Re ceived Time Location / / Volume Laterality 03/17/2020 10:41 AM COMMUNITY ARTS WORKER Impressions 03/17/2020 12:08 PM COMMUNITY ARTS WORKER COMPARISON: ??None. FINDINGS: ?? Right knee: 3 views. No acute fractures or dislocations. Mild narrowing of the medial compartment. Lateral compartment is unremarkable. Mild lateral patellar tilt with mild degenerative arthrosis of the patellofemoral compartment. Left knee: 4 views. No acute fractures o r dislocations. Mild narrowing of the medial compartment is likely degenerative. Lateral compartment is unremarkable. Mild lateral patellar tilt with mild degener ative arthrosis of the patellofemoral co mpartment. No significant joint effusion. Procedure Note Shiva Elliott MD - 03/17/2020Formatti ng of this note might be different from the original. IMPRESSION COMPARISON: None. FINDINGS: Right knee: 3 views. No acute fractures or dislocations. Mild narrowing of the medial compartment. Lateral compartment is unremarkable. Mild lateral patellar tilt with mild degenerative arthrosis of the patellofemoral compartment. Left knee: 4 views. No acute fractures o r dislocations. Mild narrowing of the medial compartment is likely degenerative. Lateral compartment is unremarkable. Mild lateral patellar tilt with mild degenerative arthrosis of the patellofemoral compartment. No si gnificant joint effusion. Antonio Phelan MD RAD GD documented in this encounter Visit Diagnoses Diagnosis Acute pain of left knee Acute pain of left knee documented in this encounter
--- OUTSIDE RECORDS SUMMARY | 2021-12-24 15:42 | XMS_ITS | Encounter Summary ---
:1965 Author Organization [facility] Address [address], [place] [address] Care Team Providers Name Role Phone Unavailable Primary Care Provider Unavailable Encounter Details Date Type Department Care Team Description 03/27/2020 Orders Only Initial Department Provider, Ar, [facility] HEAVEN DÍAZ MD [place], [place] [address] Interface provider [phone] [place] [address] Social History Tobacco Use Types Packs/Day Years Used Date Smoking Tobacco: Never Sex Assigned at Date Recorded Not on file documented as of this encounter Plan of Treatment Upcoming Encounters Date Type Specialty Care Team Description 12/25/2021 Appointment Vascular Surgery Gloria Quinones MD [address] [place] [address] [address] (Wo rk) 12/25/2021 Appointment Vascular Surgery Nurse, [id number] Vsurg documented as of this encounter Procedures Procedure Name Priority Date/Time Associated Diagnosis Comme nts MRI-SCAN 03/27/2020 Results for thi s procedure are in the resu lts section. documented in this encounter Results MRI-SCAN (03/27/2020) Anatomical Region Laterality Modality Other Narrative This result has an attachment that is no t available. Interface Provider MD TREVIZO/OTHER/AR documented in this encounter Visit Diagnoses Not on filedocumented in this encounter
--- OUTSIDE RECORDS SUMMARY | 2021-12-24 15:42 | XMS_ITS | Encounter Summary ---
:1965 Author Organization [facility] Address [address] [place] [address] Care Team Providers Name Role Phone Unavailable Primary Care Provider Unavailable Encounter Details Date Type Department Care Team Description 06/14/2006 Office Visit [facility] [place] [address] [place] [address] [place] [address] [phone] (Wo rk) Social History Tobacco Use Types Packs/Day Years Used Date Smoking Tobacco: Never Assessed Sex Assigned at Date Recorded Not on file documented as of this encounter Last Filed Vital Signs Vital Sign Reading Time Taken Comments Blood Pressure 120/78 06/14/2006 4:17 PM CDT Pulse 64 06/14/2006 4:17 PM CDT Temperature - - Respiratory Rate 12 06/14/2006 4:17 PM CDT Oxygen Saturation - - Inhaled Oxygen Concentration - - Weight - - Height - - Body Mass Index - - documented in this encounter Progress Notes Pb Pitts MD - 06/14/2006 12:01 AM CDT Progress Notes signed by Pb Pitts MD at 06/17/06 0953 Author: Pb Pitts MD Service: (none) Author Type: Physician Filed: 06/12/10 1849 Note Time: 06/14/06 0001 Status: Signed Gis Physical Scientist: Pb Pitts MD (Physician) NAME: ROLF SANTIAGO MR#: [id number] ACCT: VISIT: [id number] DICTATING CLINICIAN: Pb Pitts MD JOB: [id number] LOC: 417 CLINIC PROGRESS NOTE DATE OF VISIT: 06/14/2006 SUBJECTIVE: Mr. Santiago is a 40-year-old gentleman who is here for a vasectomy consultation. His is age 40. They have three children age 3-1/2 up to 12 and no significant past medical history. No history of chest pain, shortness of breath, or easy bruising or bleeding. OBJECTIVE: Vas are relatively easy to palpate bilaterally. ASSESSMENT: The patient desires vasectomy. PLAN: He knows he needs to bring in semen sample 4 months after the procedure to verify sterility prior to stopping other control methods. There is a 1% chance of early failure which may necessitate repeating the procedure. There is a 1:3000 risk of a late . There is a low risk of infection, bleeding as well as chronic testicular pain. The patient is aware of all these risks and will schedule in the near future. [facility]:[id number] C: 06/17/06 08:29 DOCUMENT: [id number] documented in this encounter Plan of Treatment Upcoming Encounters Date Type Specialty Care Team Description 12/25/2021 Appointment Vascular Surgery Gloria Quinones MD [address] [address] (Wo rk) 12/25/2021 Appointment Vascular Surgery Nurse, [id number] Vsurg documented as of this encounter Visit Diagnoses Not on filedocumented in this encounter
--- OUTSIDE RECORDS SUMMARY | 2021-12-24 15:42 | XMS_ITS | Encounter Summary ---
:1965 Author Organization [facility] Address [address] [address] Care Team Providers Name Role Phone Unavailable Primary Care Provider Unavailable Encounter Details Date Type Department Care Team Description 10/17/2006 PN Conversion Only REALTY LOAN SPECIALIST 3800 CONV Pb Pitts MD [address] [facility] [address] [place] [phone] (Wo rk) Social History Tobacco Use Types Packs/Day Years Used Date Smoking Tobacco: Never Assessed Sex Assigned at Date Recorded Not on file documented as of this encounter Plan of Treatment Upcoming Encounters Date Type Specialty Care Team Description 12/25/2021 Appointment Vascular Surgery Gloria Quinones MD [address] [facility] N [address] (Wo rk) 12/25/2021 Appointment Vascular Surgery Nurse, [id number] Vsurg documented as of this encounter Procedures Procedure Name Priority Date/Time Associated Diagnosis Comme nts POST VASECTOMY Routine 10/17/2006 1:40 PM Results for this CHECK CDT procedure are i n the results section. documented in this encounter Results (ABNORMAL) Post Vasectomy Check (PVC) (10/17/2006 1:40 PM CDT) [facility] Signature Time 1,340 Hours HP CONVERSION collected- SEMEN, POC Where On Site No normal HP CONVERSION Collected - range Semen Comment: *WHERE COL CORRECTED FROM Off S ite TO On Site ON 10/17/06 BY GHAZALA Time Received 1,340 Hours HP CONVERSION Time Test Performed 1,440 Hours HP CONVERS ION Days of Abstinence 2 Days HP CONVERSI ON Sperm/Slide Unspun >100 (A) No normal range HP CO NVERSION Post Vasectomy Motility 0 % HP CON VERSION Specimen (Source) Anatomical Collection Method Collection Time Re ceived Time Location / / Volume Laterality 10/17/2006 1:40 PM CDT Pb Pitts MD LAB_1 Performing Organization Address City/State/ZIP Code Phon e Number HP CONVERSION documented in this encounter Visit Diagnoses Not on filedocumented in this encounter
--- OUTSIDE RECORDS SUMMARY | 2021-12-24 15:42 | XMS_ITS | Encounter Summary ---
:1965 Author Organization [facility] Address [address] [place] [address] Care Team Providers Name Role Phone Unavailable Primary Care Provider Unavailable Reason for Referral (Routine) - Closed Specialty Diagnoses / Procedures Referred By Contact Refer red To Contact Diagnoses Chronic pain of left knee Antonio Nguyen MD Procedures Triamcinolone Acet Inj Nos: (per 10 mg) [address] [place] [address] Referral ID Status Reason Start Date Expiration Date Visits Requ ested Visits Authorized [id number] Closed 04/07/2020 07/07/2021 1 1 RITY DEVELOPER Reason for Visit Reason Comments Injection Encounter Details Date Type Department Care Team Description 04/07/2020 Office Visit Antonio Gross, Chroni c pain of left Orthopaedics [facility] Sports MD knee (Primary Dx) Medicine [address] [address] [place] [phone] Social History Tobacco Use Types Packs/Day Years Used Date Smoking Tobacco: Never Sex Assigned at Date Recorded Not on file documented as of this encounter Patient Instructions Patient InstructionsAntonio Nguyen MD - 04/07/2020 10:20 AM CST Images from the original note were not included. Knee: Exercises Introduction Here are some examples of exercises for you to try. The exercises may be suggested for a condition or for rehabilitation. Start each exercise slowly. Ease off the exercises if you start to have pain. Focus on quad sets, heel dig bridging and hamstring curls How to do the exercises Quad sets 1. Sit with your leg straight and supported on the floor or a firm bed. (If you feel discomfort in the front or back of your knee, place a small towel roll under your knee.) 2. Tighten the muscles on top of your thigh by pressing the back of your knee flat down to the floor. (If you feel discomfort under your kneecap, place a small towel roll under your knee.) 3. Hold for about 6 seconds, then rest for up to 10 seconds. 4. Do 8 to 12 repetitions several times a day. Straight-leg raises to the front 1. Lie on your back with your good knee bent so that your foot rests flat on the floor. Your injuredleg should be straight. Make sure that your low back has a normal curve. You should be able to slip your flat hand in between the floor and the small of your back, with your palm touching the floor andyour back touching the back of your hand. 2. Tighten the thigh muscles in the injured leg by pressing the back of your knee flat down to the floor. Hold your knee straight. 3. Keeping the thigh muscles tight, lift your injured leg up so that your heel is about 12 inches off the floor. Hold for about 6 seconds and then lower slowly. 4. Do 8 to 12 repetitions, 3 times a day. Straight-leg raises to the outside 1. Lie on your side, with your injured leg on top. 2. Tighten the front thigh muscles of your injured leg to keep your knee straight. 3. Keep your hip and your leg straight in line with the rest of your body, and keep your knee pointing forward. Do not drop your hip back. 4. Lift your injured leg straight up toward the ceiling, about 12 inches off the floor. Hold for about 6 seconds, then slowly lower your leg. 5. Do 8 to 12 repetitions. Straight-leg raises to the back 1. Lie on your stomach, and lift your leg straight up behind you (toward the ceiling). 2. Lift your toes about 6 inches off the floor, hold for about 6 seconds, then lower slowly. 3. Do 8 to 12 repetitions. Straight-leg raises to the inside 1. Lie on the side of your body with the injured leg. 2. You can either prop your other (good) leg up on a chair, or you can bend your good knee and put that foot in front of your injured knee. Do not drop your hip back. 3. Tighten the muscles on the front of your thigh to straighten your injured knee. 4. Keep your kneecap pointing forward, and lift your whole leg up toward the ceiling about 6 inches.Hold for about 6 seconds, then lower slowly. 5. Do 8 to 12 repetitions. Heel dig bridging 1. Lie on your back with both knees bent and your ankles bent so that only your heels are digging into the floor. Your knees should be bent about 90 degrees. 2. Then push your heels into the floor, squeeze your buttocks, and lift your hips off the floor until your shoulders, hips, and knees are all in a straight line. 3. Hold for about 6 seconds as you continue to breathe normally, and then slowly lower your hips back down to the floor and rest for up to 10 seconds. 4. Do 8 to 12 repetitions. Hamstring curls 1. Lie on your stomach with your knees straight. If your kneecap is uncomfortable, roll up a washcloth and put it under your leg just above your kneecap. 2. Lift the foot of your injured leg by bending the knee so that you bring the foot up toward your buttock. If this motion hurts, try it without bending your knee quite as far. This may help you avoid any painful motion. 3. Slowly lower your leg back to the floor. 4. Do 8 to 12 repetitions. 5. With permission from your doctor or physical therapist, you may also want to add a cuff weight toyour ankle (not more than 5 pounds). With weight, you do not have to lift your leg more than 12 inches to get a hamstring workout. Shallow standing knee bends Do this exercise only if you have very little pain; if you have no clicking, locking, or giving way if you have an injured knee; and if it does not hurt while you are doing 8 to 12 repetitions. 1. Stand with your hands lightly resting on a counter or chair in front of you. Put your feet shoulder-width apart. 2. Slowly bend your knees so that you squat down like you are going to sit in a chair. Make sure your knees do not go in front of your toes. 3. Lower yourself about 6 inches. Your heels should remain on the floor at all times. 4. Rise slowly to a standing position. Heel raises 1. Stand with your feet a few inches apart, with your hands lightly resting on a counter or chair infront of you. 2. Slowly raise your heels off the floor while keeping your knees straight. 3. Hold for about 6 seconds, then slowly lower your heels to the floor. 4. Do 8 to 12 repetitions several times during the day. Follow-up care is a braga part of your treatment and safety. Be sure to make and go to all appointments, and call your doctor if you are having problems. It's also a good idea to know your test results and keep a list of the medicines you take. Where can you learn more? 1. Go to https://CloudHashing/[employer] or Likez/SpecialtyCare. 2. Enter Q615 in the search box. Current as of: August 16, 2018?Content Version: 12.4 ?? 5065-4097 [employer]. Care instructions adapted under license by your healthcare professional. If you have questions abouta medical condition or this instruction, always ask your healthcare professional. [employer] disclaims any warranty or liability for your use of this information. RITY DEVELOPER documented in this encounter Progress Notes Antonio Nguyen MD - 04/07/2020 12:00 PM CST NAME: ROLF SANTIAGO MR#: [id number] CSN: [id number] AUTHENTICATING CLINICIAN: ANTONIO NGUYEN MD CONFIRM #: [id number] LOC: 711 CLINIC PROGRESS NOTE DATE OF VISIT: 04/07/2020 : 1965 ID: A 54-year-old male presents today for followup of left knee pain and MRI review. INTERVAL HISTORY: Overall, the patient reports his symptoms are about the same. He continues to have aching pain in the deep middle part of his knee, as well as occasional mechanical symptoms. He has a history of knee arthroscopy at an outside hospital in September. He had a recent MRI performed and is here for review. EXAM: Patient is alert, oriented, in no acute distress. He has nonlabored breathing at rest. On examination of the left knee, the patient has range of motion from full extension to 135 degrees of flexion. Hehas moderate patellofemoral crepitus. He has tenderness to palpation over the anterolateral aspect of the knee joint and around the portal. He also has moderate tenderness to palpation of the posteromedial joint line. He has no tenderness to palpation around the patellar facets. He has a mildly positive Lyla's to varus and valgus load, he has a negative Kenji's. He has a negative ligamentous exam. IMAGING STUDIES: Imaging consisting of an MRI scan of the left knee was reviewed with the patient today. This demonstrates anterior interval scarring with a globular postsurgical scar located in the anterolateral aspect of the knee. He also has progression of his posteromedial meniscus root tear as well as progressionof his medial compartment chondromalacia. ASSESSMENT: A 54-year-old male with left knee pain and mechanical symptoms status post an arthroscopy at an outside hospital, now with progression of his medial meniscus root tear and medial compartment arthritis,as well as focal scarring within the anterior interval. PLAN: I discussed with the patient both surgical and nonsurgical treatment options. He does have a meniscus root tear, which may be amenable to repair. However, he has already been through an arthroscopy, and would like to optimize nonsurgical management first. I feel this is very reasonable. I have therefore instructed him on a home exercise program as well as the risks and benefits of proceeding with a cortisone injection to the left knee. The patient would like to proceed with both. INJECTION: After verbal consent was obtained, the patient's superolateral portal of the left knee was sterilelyprepped. 40 mg of Kenalog as well as 4 mL of 1% lidocaine plain were injected in the left knee via superolateral portal without difficulty. The injection site was covered with a Band-Aid. If the patient fails to have significant relief with the home exercise program and his cortisone injection over the next 6-8 weeks, I would like to see him back to consider surgical intervention. The patient understood the above, and will contact clinic if he fails to have significant relief. A total time of 25 minutes was spent on the visit including non onhj-yq-ausm time. AMAlissa:CHRIS C: R:04/07/20 10:45 CONFIRM#:[id number] RITY DEVELOPER documented in this encounter Plan of Treatment Upcoming Encounters Date Type Specialty Care Team Description 12/25/2021 Appointment Vascular Surgery Gloria Quinones MD [address] [facility] N [address] (Wo rk) 12/25/2021 Appointment Vascular Surgery Nurse, [id number] Vsurg documented as of this encounter Visit Diagnoses Diagnosis Chronic pain of left knee - Primary Pain in joint, lower leg documented in this encounter
--- OUTSIDE RECORDS SUMMARY | 2021-12-24 15:42 | XMS_ITS | Encounter Summary ---
:1965 Author Organization [facility] Address [address] [address] Care Team Providers Name Role Phone Unavailable Primary Care Provider Unavailable Reason for Visit Reason Comments Other IMAGES Encounter Details Date Type Department Care Team Description 03/14/2020 Telephone TRIA Antonio Rothman MD Other (IMAGES) Orthopaedics & Sports [address] [place] [address] [place] [address] [phone] Social History Tobacco Use Types Packs/Day Years Used Date Smoking Tobacco: Never Sex Assigned at Date Recorded Not on file documented as of this encounter Nursing Notes Tamika Rowe CMA - 03/14/2020 2:35 PM CST Received MRI results, Placed in Dr. Phelan's folder. MACY TECHNICIAN INFUSION Tamika Rowe CMA - 03/14/2020 2:13 PM CST Called [facility] [phone] medical records stated they faxed results. Have not received yet, gave different fax# to send report. MACY TECHNICIAN INFUSION Tamika Rowe CMA - 03/14/2020 11:06 AM CST Talked to patient, he has internal knee pictures from procedure on his cell phone. Told him to bringwith him to appointment. Patient also had knee MRI done on 09/18/19 which is imported. Faxed release of information to [facility] [phone] for knee MRI results,confirmed receipt. MACY TECHNICIAN INFUSION Yessi Alaniz - 03/14/2020 10:05 AM CST Has the patient recently had surgery or an injury? N/A How may we help you today? Foreign images Describe your symptoms/concerns: the patient is calling stating yann wasn't able to send some of the images over and instead emailed it to him, he was wanting to know if he could e-mail them over prior to his appt for the provider to see pls advise recommendations. When did the issue start: N/A Have you been seen for this recently?: N/A [Spiritual Care Coordinator/Appt Center: If yes, please include date and provider.] Is it okay to leave detailed message on your voicemail? YES [Spiritual Care Coordinator/Appt Center: If this call is after 3 p.m., communicate to patient: If we are not able to get back to you by the end of the day and your symptoms worsen please contact the Careline] MACY TECHNICIAN INFUSION documented in this encounter Plan of Treatment Upcoming Encounters Date Type Specialty Care Team Description 12/25/2021 Appointment Vascular Surgery Gloria Quinones MD [address] [facility] N [address] (Wo rk) 12/25/2021 Appointment Vascular Surgery Nurse, P6500 Vsurg documented as of this encounter Visit Diagnoses Not on filedocumented in this encounter
--- OUTSIDE RECORDS SUMMARY | 2021-12-24 15:42 | XMS_ITS | Encounter Summary ---
:1965 Author Organization [facility] Address [address] [place] [address] Care Team Providers Name Role Phone Unavailable Primary Care Provider Unavailable Encounter Details Date Type Department Care Team Description 09/13/2007 Office Visit [facility] Filipe Ingram DPM [facility] [address] [facility] [address] [place] [address] [place] [address] [phone] Social History Tobacco Use Types Packs/Day Years Used Date Smoking Tobacco: Never Assessed Sex Assigned at Date Recorded Not on file documented as of this encounter Progress Notes Elieser Ingram DPM - 09/13/2007 12:01 AM CDT Progress Notes signed by Elieser Ingram DPM at 09/14/07 1236 Author: Elieser Ingram DPM Service: (none) Author Type: Physician Filed: 06/13/10 0545 Note Time: 09/13/07 0001 Status: Signed Commercial Trailer Truck Driver: Elieser Ingram DPM (Physician) NAME: ROLF SANTIAGO MR#: [id number] ACCT: [id number] VISIT: [id number] DICTATING CLINICIAN: Elieser Ingram DPM CONFIRM #: [id number] LOC: 539 CLINIC PROGRESS NOTE DATE OF VISIT: 09/13/2007 The patient presents for a followup visit. I have seen him in the past for a nail procedure. He is now having problems on the right heel. This has been bothering him for several months. He denies any injury or trauma. He does have pain which is worse first thing in the morning upon stepping out of bed. ADR/ALLERGIES: HE DENIES ALLERGIES TO MEDICATIONS. MEDICATIONS: Reviewed and updated in LastWord. PAST MEDICAL HISTORY: Reviewed in LastWord. REVIEW OF SYSTEMS: Negative for fever, rash, burning, or tingling in the lower extremities. SUBJECTIVE: OBJECTIVE: DP and PT pulses are +2/4. Hair growth is present on the digits. Capillary filling time is less than 2 seconds. Sensation is intact. There is no weakness with muscle testing of the foot, ankle, or lower leg. No pain with subtalar joint or ankle joint range of motion. He does have pain with palpation of the medial process, the plantar weight bearing surface of the right calcaneus. There is no pain over the distal fascial band or calcaneal nerve branch. No pain with okcs-ay-drty compression of the heel. No other abnormalities noted. ASSESSMENT: Plantar fasciitis right heel. PLAN: Treatment options were discussed with the patient. I discussed the condition in great detail. A low-Dye strapping was suggested and applied to the right foot. He will keep this on for 3 to 5 days and begin using a temporary insert. If he continues to have symptoms he will check with his health plan regarding coverage for orthotics. ALP:[id number] C: 09/13/07 15:30 CONFIRM #: [id number] documented in this encounter Plan of Treatment Upcoming Encounters Date Type Specialty Care Team Description 12/25/2021 Appointment Vascular Surgery Gloria Quinones MD [address] [facility] N [id number] (Wo rk) 12/25/2021 Appointment Vascular Surgery Nurse, P6500 Jason documented as of this encounter Visit Diagnoses Not on filedocumented in this encounter
--- OUTSIDE RECORDS SUMMARY | 2021-12-24 15:42 | XMS_ITS | Encounter Summary ---
:1965 Author Organization [facility] Address [address] [place] [address] Care Team Providers Name Role Phone Unavailable Primary Care Provider Unavailable Reason for Visit Procedure/Equipment (Routine) - Incomplete Specialty Diagnoses / Procedures Referred By Contact Refer red To Contact Procedures Provider, Foreign Images Foreign Image(S) MR Knee Lt [address] [place] [address] Referral ID Status Reason Start Date Expiration Date Visits V isits Requested Authorized [id number] Incomplete 03/13/2020 06/12/2021 1 1 Encounter Details Date Type Department Care Team Description 09/18/2019 Ancillary Procedure [facility] PACS Provider, [address] [place] [address] [address] [place] [address] Social History Tobacco Use Types Packs/Day Years Used Date Smoking Tobacco: Never Sex Assigned at Date Recorded Not on file documented as of this encounter Plan of Treatment Upcoming Encounters Date Type Specialty Care Team Description 12/25/2021 Appointment Vascular Surgery Gloria Quinones MD [address] [facility] N [id number] (Wo rk) 12/25/2021 Appointment Vascular Surgery Nurse, P6500 Vsurg documented as of this encounter Procedures Procedure Name Priority Date/Time Associated Diagnosis Comme nts FOREIGN IMAGE(S) MR Routine 09/18/2019 4:05 PM Re sults for this KNEE LT CDT procedure are i n the results section. documented in this encounter Results Foreign Image(S) MR Knee Lt (09/18/2019 4:05 PM CDT) Specimen (Source) Anatomical Location Collection Method / Collectio n Time Received Time / Laterality Volume Narrative POCT - 03/13/2020 4:03 PM BACON STRINGER These outside images have been uploaded into PACS. If the results were provided, they will be located in the ulysses blevins's chart under the Media or Imaging tab. Foreign Images Provider RAD NON-REPORTABLES Performing Organization Address City/State/ZIP Code Phon e Number POCT documented in this encounter Visit Diagnoses Not on filedocumented in this encounter
--- OUTSIDE RECORDS SUMMARY | 2021-12-24 15:42 | XMS_ITS | Encounter Summary ---
:1965 Author Organization [facility] Address [address], [place] [address] Care Team Providers Name Role Phone Unavailable Primary Care Provider Unavailable Encounter Details Date Type Department Care Team Description 03/06/2009 PN Conversion Only CONV [id number] Social History Tobacco Use Types Packs/Day Years Used Date Smoking Tobacco: Never Assessed Sex Assigned at Date Recorded Not on file documented as of this encounter Plan of Treatment Upcoming Encounters Date Type Specialty Care Team Description 12/25/2021 Appointment Vascular Surgery Gloria Quinones MD [address] [facility] N [id number] (Wo rk) 12/25/2021 Appointment Vascular Surgery Nurse, [id number] Vsurg documented as of this encounter Visit Diagnoses Not on filedocumented in this encounter
--- OUTSIDE RECORDS SUMMARY | 2021-12-24 15:42 | XMS_ITS | Encounter Summary ---
:1965 Author Organization [facility] Address [address], [place] [address] Care Team Providers Name Role Phone Unavailable Primary Care Provider Unavailable Encounter Details Date Type Department Care Team Description 03/19/2020 Orders Only Initial Department Provider, Ar, [facility] HEAVEN DÍAZ MD [place], [place] [address] Interface provider [phone] [place] [address] Social History Tobacco Use Types Packs/Day Years Used Date Smoking Tobacco: Never Sex Assigned at Date Recorded Not on file documented as of this encounter Plan of Treatment Upcoming Encounters Date Type Specialty Care Team Description 12/25/2021 Appointment Vascular Surgery Gloria Quinones MD [address] [place] N [address] (Wo rk) 12/25/2021 Appointment Vascular Surgery Nurse, [id number] Vsurg documented as of this encounter Procedures Procedure Name Priority Date/Time Associated Diagnosis Comme nts MRI-SCAN 03/19/2020 Results for thi s procedure are in the resu lts section. documented in this encounter Results MRI-SCAN (03/19/2020) Anatomical Region Laterality Modality Other Narrative This result has an attachment that is no t available. Interface Provider MD TREVIZO/OTHER/AR documented in this encounter Visit Diagnoses Not on filedocumented in this encounter
--- OUTSIDE RECORDS SUMMARY | 2021-12-24 15:42 | XMS_ITS | Encounter Summary ---
:1965 Author Organization [facility] Address [address] [place] [address] Care Team Providers Name Role Phone Unavailable Primary Care Provider Unavailable Encounter Details Date Type Department Care Team Description 03/24/2020 Notes/Orders TRIAntonio Colvin MD Orthopaedics & Sports [address] [facility] [place] [address] [facility] [place] [address] [phone] Social History Tobacco Use Types Packs/Day Years Used Date Smoking Tobacco: Never Sex Assigned at Date Recorded Not on file documented as of this encounter Plan of Treatment Upcoming Encounters Date Type Specialty Care Team Description 12/25/2021 Appointment Vascular Surgery Gloria Quinones MD [address] [facility] N [id number] (Wo rk) 12/25/2021 Appointment Vascular Surgery Nurse, [id number] Vsurg documented as of this encounter Visit Diagnoses Not on filedocumented in this encounter
--- OUTSIDE RECORDS SUMMARY | 2021-12-24 15:42 | XMS_ITS | Encounter Summary ---
:1965 Author Organization [facility] Address [address] [place] [address] Care Team Providers Name Role Phone Unavailable Primary Care Provider Unavailable Encounter Details Date Type Department Care Team Description 06/28/2006 Procedure Visit [facility] [place] [address] [place] [address] [place], [place] [phone] (Wo rk) Social History Tobacco Use Types Packs/Day Years Used Date Smoking Tobacco: Never Assessed Sex Assigned at Date Recorded Not on file documented as of this encounter Progress Notes Pb Pitts MD - 06/28/2006 12:01 AM CDT Procedures signed by Pb Pitts MD at 06/30/06 0753 Author: Pb Pitts MD Service: (none) Author Type: Physician Filed: 06/12/10 1906 Note Time: 06/28/06 0001 Status: Signed Yeast Stacker: Pb Pitts MD (Physician) NAME: ROLF SANTIAGO MR#: [id number] ACCT: [id number] VISIT: [id number] DICTATING CLINICIAN: Pb Pitts MD JOB: [id number] LOC: 417 CLINIC PROCEDURE REPORT DATE OF VISIT: 06/28/2006 SUBJECTIVE: DATE OF PROCEDURE: 06/28/06. Mr. Santiago is a 40-year-old gentleman who is here for a vasectomy. Please see previous note regarding risks/benefits of the procedure. OBJECTIVE: PROCEDURE: After informed consent was obtained the patient was brought to the procedure room, placed supine on the procedure table, prepped and draped in standard surgical fashion. Three-finger technique was used to isolate the vas deferens on the right-hand side. I additionally used some Hibiclens along my fingers for additional sterility. The vas was brought up to the level of the skin. Local lidocaine was injected. No-scalpel technique was used to open the skin. The vas was grasped in midline. A 2 cm segment was excised. Intraluminal cautery was performed both proximally and distally. It was buried in surrounding fascial tissue. A metal clip was provided on the cephalad end. Identical procedure was performed on the left-hand side. A 3-0 chromic suture was used to close the incision site. The patient was a relatively easy procedure. ASSESSMENT: PLAN: The patient tolerated the procedure well and will follow up in 4 months with a semen sample. NB:[id number] C: 06/30/06 07:34 DOCUMENT: [id number] documented in this encounter Plan of Treatment Upcoming Encounters Date Type Specialty Care Team Description 12/25/2021 Appointment Vascular Surgery Gloria Quinones MD [address] [facility] [place] [id number] (Wo rk) 12/25/2021 Appointment Vascular Surgery Nurse, [id number] Jason documented as of this encounter Visit Diagnoses Not on filedocumented in this encounter
--- OUTSIDE RECORDS SUMMARY | 2021-12-24 15:42 | XMS_ITS | Encounter Summary ---
:1965 Author [facility] Address [address] [place] [address] Care Team Providers Name Role Phone Unavailable Primary Care Provider Unavailable Reason for Referral Procedure/Equipment (Routine) - Closed Specialty Diagnoses / Procedures Referred By Contact Refer red To Contact Diagnoses Acute pain of left knee Antonio Phelan [place] [address] [place] [address] Referral ID Status Reason Start Date Expiration Date Visits Requ ested Visits Authorized [id number] Closed 03/17/2020 06/16/2021 1 1 N TILE PRESS OPERATOR Procedure/Equipment (Routine) - Incomplete Specialty Diagnoses / Procedures Referred By Contact Refer red To Contact Diagnoses Acute pain of left knee Antonio Phelan MD Procedures XR Knee Rt 1-2 Views Comparison [address] [place] [address] Referral ID Status Reason Start Date Expiration Date Visits V isits Requested Authorized [id number] Incomplete 03/17/2020 06/16/2021 1 1 N TILE PRESS OPERATOR Procedure/Equipment (Routine) - Incomplete Specialty Diagnoses / Procedures Referred By Contact Refer red To Contact Diagnoses Acute pain of left knee Antonio Phelan MD Procedures XR Knee Lt [address] [place] [address] Referral ID Status Reason Start Date Expiration Date Visits V isits Requested Authorized [id number] Incomplete 03/17/2020 06/16/2021 1 1 N TILE PRESS OPERATOR Reason for Visit Reason Comments CONSULT left knee Encounter Details Date Type Department Care Team Description [facility] left Orthopaedics & Sports knee (Primary Dx) Medicine [address] [facility] [address] [place] [address] [phone] Social History Tobacco Use Types Packs/Day Years Used Date Smoking Tobacco: Never Sex Assigned at Date Recorded Not on file documented as of this encounter Last Filed Vital Signs Vital Sign Reading Time Taken Comments Blood Pressure - - Pulse - - Temperature - - Respiratory Rate - - Oxygen Saturation - - Inhaled Oxygen Concentration - - Weight 99.8 kg (220 lb) 03/17/2020 10:27 AM DRAIN TILE PRESS OPERATOR Height 182.9 cm (6') 03/17/2020 10:27 AM DRAIN TILE PRESS OPERATOR Body Mass Index 29.84 03/17/2020 10:27 AM DRAIN TILE PRESS OPERATOR documented in this encounter Progress Notes Antonio Phelan MD - 03/17/2020 10:20 AM CST Subjective: Rolf Santiago is a 54 y.o. male referred for evaluation and treatment of left knee pain. This isevaluated as a personal injury. Patient states that he has had left knee pain starting last summer. He was diagnosed with meniscus tears, and underwent surgery at an outside hospital in September 2019. They did a knee arthroscopy, partial meniscectomy, without repair. Patient states that since that time he has had on and off locking and catching in his knee. It is mostly on the outside of the knee. He does state that locks with severe extreme pain, and requires manual manipulation to improve. It has now been worse over the past month. The patient states the pain is localized to lateral knee. They describe their pain as dull, but occasionally severe and stabbing. It is made worse with walking and better with rest. No PT after last surgery Past Medical History, Past Surgical History, Social History, and Family Medical History was reviewedand updated as appropriate. 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 UNKNOWN MEDICATION Indications: PN: ??? UNKNOWN MEDICATION Indications: PN: No current facility-administered medications for this visit. Allergies Allergen Reactions ??? Amoxicillin Edema,generalized Pt gets facial edema and numbness Objective: General: Well-developed, well-nourished male in no acute distress. Alert and oriented x 3 Gait: Normal heel-to-toe gait. The patient can bear weight on the injured extremity. Neurovascular: Toes intact to pressure and light touch. Posterior tibialis pulse is present. Skin: clean, dry, intact. No rashes or lesions. Lower Extremity: Right Knee: no effusion no warmth ROM: 0 extension to 140 flexion No focal tenderness to palpation of medial or lateral joint lines, patellar facets. 5/5 strength with resisted leg extension Patellar trackin+ medial and lateral patellar glide with end point. Soham grade 1A, neg anterior drawer, negative posterior drawer neg varus stress in full extension, neg varus stress in 30 degrees of flexion neg valgus in full extension, neg valgus in 30 degrees of flexion neg McMurrays to valgus load, neg McMurrays to varus load Distally the leg is warm and well perfused, with full strength and sensation intact on the dorsum and plantar foot Left Knee: Trace effusion, well healed surgical scars no warmth ROM: 0 extension to 135 flexion No focal tenderness to palpation of medial joint line, patellar facets. Focal tenderness to palpation of lateral joint line. 5/5 strength with resisted leg extension Patellar trackin+ medial and lateral patellar glide with end point. Soham grade A, neg anterior drawer, negative posterior drawer neg varus stress in full extension, neg varus stress in 30 degrees of flexion neg valgus in full extension, neg valgus in 30 degrees of flexion pos McMurrays to valgus load, neg McMurrays to varus load + Steinmans Distally the leg is warm and well perfused, with full strength and sensation intact on the dorsum and plantar foot Imaging X-rays: 3 views of the knee were taken and independently reviewed. These demonstrate mild medial compartment joint space narrowing without evidence of osteophyte formation. Otherwise no fracture deformities appreciated. MRI of the left knee on August 2019, which which was his preoperative MRI demonstrates a high-grade partial-thickness posterior root medial meniscus tear, as well as some early chondral irregularity of the lateral patellar facet. In addition there was some degenerative changes of the lateral meniscus. Assessment: 54M with L knee locking symptoms 6 months after a knee arthroscopy and meniscectomy in an outside institution. I do have concerns for new symptomatic loose body, meniscus tear contributing to his symptoms. Plan: I recommended we obtain an MRI scan of the left knee to evaluate for the integrity of the cartilage,meniscus structures, and to evaluate for any structure that could be causing the locking symptoms the patient describes. He will follow up with me after the MRI scan for further treatment plans. I would also like him to obtain his operative report, so that I can review the details of his surgery. He did have some pictures available on his cell phone, which I reviewed, but was unable to fully assess. Radiology studies and anatomy of the knee reviewed. Patient verbalized understanding and agreement to our treatment plan. All of his questions were answered to his satifaction. Approximately 35 minutes was spent on this encounter including pre-visit planning, imaging review, face to face patient visit time, and documentation, with at least 50% of the time being face to face time with direct patient care. Antonio Phelan MD N TILE PRESS OPERATOR documented in this encounter Plan of Treatment Upcoming Encounters Date Type Specialty Care Team Description 12/25/2021 Appointment Vascular Surgery Gloria uQinones MD [address] [facility] N [address] (Wo rk) 12/25/2021 Appointment Vascular Surgery Nurse, [id number] Vsurg documented as of this encounter Results MR Knee Lt WO IV Cont (03/31/2020 8:42 AM DRAIN TILE PRESS OPERATOR) Anatomical Region Laterality Modality Lower Extremity, Knee, Skeletal, Thigh, Leg Left Magnetic Resonance Specimen (Source) Anatomical Collection Method Collection Time Re ceived Time Location / / Volume Laterality 03/31/2020 8:17 AM DRAIN TILE PRESS OPERATOR Impressions 03/31/2020 9:26 AM DRAIN TILE PRESS OPERATOR TECHNIQUE: Routine MRI of the left knee was performed without contrast. COMPARISON: Outside MRI 11/19/2019 FINDINGS: MEDIAL COMPARTMENT: Moderate sized area of grade 2-3 chondromalacia in the central weightbearing portion of the medial femoral condyle is new from the prior exam. Moderate degeneration and/or tearing of the posterior medial meniscal root is p rogressed since the prior examination. LATERAL COMPARTMENT: Small area of grade 2-3 chondromalacia in the lateral tibial plateau is improved. Findings suggestive of previous partial lateral meniscectomy. No definite evidence of recurrent lateral meniscal tear. PATELLOFEMORAL JOINT: There are no focal cartilage defects in the patellofemoral joint. Small joint effusion. Trace popliteal cyst. New 1.4 x 0.8 x 0.7 cm area of focal abnormal signal within the anteri or aspect of the lateral compartment and intercondylar notch probably represents focal area of globular postsurgical scarring. LIGAMENTS AND TENDONS: The anterior and posterior cruciate ligaments, medial collateral ligament, iliotibial band, fibular collateral ligament and biceps femoris tendons are intact. The popliteus muscle and tendons are normal. There is no vishal dence of injury to the posterolateral corner supporting structures. EXTENSOR MECHANISM: The quadriceps and p atellar tendons are normal. The medial retinaculum, medial patellofemoral ligament, and lateral retinaculum are normal. MARROW AND SOFT TISSUES: There is no abn ormal signal or evidence of soft tissue mass. IMPRESSION: 1. 1.4 x 0.8 x 0.7 cm area of globular p ostsurgical scarring in the anterior aspect of the lateral compartment and intercondylar notch as described above. 2. Moderate degeneration and/or tearing of the posterior medial meniscal root is progressed since the prior examination. 3. Findings suggestive of previous parti al lateral meniscectomy at the posterior lateral meniscal root. No definite recurrent lateral meniscal tear. 4. Mild chondromalacia in the medial com partment is progressed. Mild chondromalacia in the lateral compartment is improved. 5. Small joint effusion. Procedure Note Ruperto Yi MD - 03/31/2020For matting of this note might be different from the original. IMPRESSION TECHNIQUE: Routine MRI of the left knee was performed without contrast. COMPARISON: Outside MRI 11/19/2019 FINDINGS: MEDIAL COMPARTMENT: Moderate sized area of grade 2-3 chondromalacia in the central weightbearing portion of the medial femoral condyle is new from the prior exam. Moderate degeneration and/or tearing of the posterior medial meniscal root is progressed since the prior examination. LATERAL COMPARTMENT: Small area of grade 2-3 chondromalacia in the lateral tibial plateau is improved. Findings suggestive of previous partial lateral meniscectomy. No definite evidence of recurrent lateral meniscal tear. PATELLOFEMORAL JOINT: There are no focal cartilage defects in the patellofemoral joint. Small joint effusion. Trace popliteal cyst. New 1.4 x 0.8 x 0.7 cm area of focal abnormal signal within the anterior aspect of the lateral compartment and intercondyla r notch probably represents focal area of globular postsurgical scarring. LIGAMENTS AND TENDONS: The anterior and posterior cruciate ligaments, medial collateral ligament, iliotibial band, fibular collateral ligament and biceps femoris tendons are intact. The popliteus muscle and tendons are normal. There is no evidence of inju ry to the posterolateral corner supporting structures. EXTENSOR MECHANISM: The quadriceps and p atellar tendons are normal. The medial retinaculum, medial patellofemoral ligament, and lateral retinaculum are normal. MARROW AND SOFT TISSUES: There is no abn ormal signal or evidence of soft tissue mass. IMPRESSION: 1. 1.4 x 0.8 x 0.7 cm area of globular p ostsurgical scarring in the anterior aspect of the lateral compartment and intercondylar notch as described above. 2. Moderate degeneration and/or tearing of the posterior medial meniscal root is progressed since the prior examination. 3. Findings suggestive of previous parti al lateral meniscectomy at the posterior lateral meniscal root. No definite recurrent lateral meniscal tear. 4. Mild chondromalacia in the medial com partment is progressed. Mild chondromalacia in the lateral compartment is improved. 5. Small joint effusion. Antonio Phelan MD RAD MRI XR Knee Rt 1-2 Views Comparison (03/17/2020 10:53 AM DRAIN TILE PRESS OPERATOR) Anatomical Region Laterality Modality Lower Extremity, Knee Digital Radiograph y Specimen (Source) Anatomical Collection Method Collection Time Re ceived Time Location / / Volume Laterality 03/17/2020 10:41 AM DRAIN TILE PRESS OPERATOR Impressions 03/17/2020 12:08 PM DRAIN TILE PRESS OPERATOR COMPARISON: ??None. FINDINGS: ?? Right knee: 3 [...] Knee Lt 3 Views (03/17/2020 10:53 AM DRAIN TILE PRESS OPERATOR) Anatomical Region Laterality Modality Lower Extremity, Knee Digital Radiograph y Specimen (Source) Anatomical Collection Method Collection Time Re ceived Time Location / / Volume Laterality 03/17/2020 10:41 AM DRAIN TILE PRESS OPERATOR Impressions 03/17/2020 12:08 PM DRAIN TILE PRESS OPERATOR COMPARISON: ??None. FINDINGS: ?? Right knee: 3 [...] Diagnoses Diagnosis Acute pain of left knee - Primary Acute pain of left knee Acute pain of left knee Acute pain of left knee documented in this encounter
--- OUTSIDE RECORDS SUMMARY | 2021-12-24 15:42 | XMS_ITS | Encounter Summary ---
:1965 Author [facility] Address [address] [address] Care Team Providers Name Role Phone Unavailable Primary Care Provider Unavailable Encounter Details Date Type Department Care Team Description 01/19/2007 Office Visit [facility] [place] [address] [address] [place] [address] [phone] Social History Tobacco Use Types Packs/Day Years Used Date Smoking Tobacco: Never Assessed Sex Assigned at Date Recorded Not on file documented as of this encounter Progress Notes Geetha Harris - 01/19/2007 12:01 AM CST Progress Notes signed by Geetha Harris MD at 01/25/07 1352 Author: Geetha Harris MD Service: (none) Author Type: Physician Filed: 06/12/10 2315 Note Time: 01/19/07 0001 Status: Signed Crane Chaser: Geetha Harris MD (Physician) NAME: ROLF SANTIAGO MR#: [id number] ACCT: [id number] VISIT: [id number] DICTATING CLINICIAN: GEETHA HARRIS MD JOB: [id number] LOC: 520 CLINIC PROGRESS NOTE DATE OF VISIT: 01/19/2007 SUBJECTIVE: Nbrrvl-lzje-lymg-old comes to Urgent Care because of generalized aches over the past 8 hours. These have been mild. He has used no medications for them. This was preceded by coughing and congestion for about 5 days. Initially a sore throat for the first day; that is gone now. No other modifying factors or associated symptoms. ADR/ALLERGIES: REVIEWED AND UPDATED IN LASTWORD FOR TODAY'S VISIT. MEDICATIONS: Reviewed and updated in LastWord for today's visit. PH/SH: Patient did receive a flu shot. There is no passive smoke exposure. He does not smoke. REVIEW OF SYSTEMS: No dysphagia, trismus, wheezing or dyspnea. No fever. OBJECTIVE: VS: BP: 144/80. T: 98.6. P: 93. R: 16. CONSTITUTIONAL: The patient is nontoxic and alert. SKIN: Warm and dry. Eyes clear. ENT: TMs, sinuses, throat normal. NECK: Supple. Lymphatic: No adenopathy. LUNGS: Clear. Patient breathing easily. No rales, wheezes or rhonchi. CARDIOVASCULAR: Regular sinus rhythm. MUSCULOSKELETAL: Patient ambulatory. NEUROLOGIC: No lethargy. ASSESSMENT: URI. PLAN: Symptomatic measures discussed. Since he has had symptoms for 5 days, it would not be of value to test for influenza or to use Tamiflu. Patient agreed. His sore throat is gone, so rapid strep testing is not necessary. Signs of secondary infection explained. Symptomatic measures for a viral illness discussed. FINAL DIAGNOSIS: URI. DMR:[id number] C: 01/21/07 00:41 DOCUMENT: [id number] ECTOR SUBASSEMBLY documented in this encounter Plan of Treatment Upcoming Encounters Date Type Specialty Care Team Description 12/25/2021 Appointment Vascular Surgery Gloria Quinones MD [address] [place] N [address] (Wo rk) 12/25/2021 Appointment Vascular Surgery Nurse, [id number] Jason documented as of this encounter Visit Diagnoses Not on filedocumented in this encounter
--- OUTSIDE RECORDS SUMMARY | 2021-12-24 15:42 | XMS_ITS | Encounter Summary ---
:1965 [facility] Address [address] [place] [address] Care Team Providers Name Role Phone Unavailable Primary Care Provider Unavailable Encounter Details Date Type Department Care Team Description 2008 Nursing Visit [facility] Herbert Alves MD [address] [place] [address] [place] [address] [phone] Social History Tobacco Use Types Packs/Day Years Used Date Smoking Tobacco: Never Assessed Sex Assigned at Date Recorded Not on file documented as of this encounter Plan of Treatment Upcoming Encounters Date Type Specialty Care Team Description 12/25/2021 Appointment Vascular Surgery Gloria Quinones MD [address] [facility] N [address] (Wo rk) 12/25/2021 Appointment Vascular Surgery Nurse, [id number] Vsurg documented as of this encounter Visit Diagnoses Not on filedocumented in this encounter
--- OUTSIDE RECORDS SUMMARY | 2021-12-24 15:42 | XMS_ITS | Encounter Summary ---
:1965 Author Organization [facility] Address [address] [place] [address] Care Team Providers Name Role Phone Unavailable Primary Care Provider Unavailable Reason for Visit Reason Comments Other Encounter Details Date Type Department Care Team Description 03/29/2006 Telephone [facility] Manasa Parker Other [address] [place], [place] [id number] Social History Tobacco Use Types Packs/Day Years Used Date Smoking Tobacco: Never Assessed Sex Assigned at Date Recorded Not on file documented as of this encounter [facility], Message - 03/29/2006 9:06 AM CST Phone Note filed by [employer] at 06/09/10 6216 Author: [employer] Service: (none) Author Type: (none) Filed: 06/09/10 1519 Note Time: 03/29/06905 Status: Signed Technical Proposal Writer: [employer] MESSAGE TO CARE TEAM NAME OF CALLER:Rolf Santiago NAME OF CLINICIAN:Julio Leonard MESSAGE:Pt would like copy of gls rx faxed to him. PHARMACY NAME: PHARMACY PHONE #: CALL BACK PHONE #: Office: [phone] BEST TIME TO CALL BACK:anytime Is it OK to leave detailed message on voicemail? Created on 29Mar2006 9:06am by PRASHANT CARTER Acknowledged by MANASA PARKER on 9:49am SHORT AND DAMAGE CLERK documented in this encounter Plan of Treatment Upcoming Encounters Date Type Specialty Care Team Description 12/25/2021 Appointment Vascular Surgery Gloria Quinones MD [address] [address] (Wo rk) 12/25/2021 Appointment Vascular Surgery Nurse, [id number] Jason documented as of this encounter Visit Diagnoses Not on filedocumented in this encounter
--- OUTSIDE RECORDS SUMMARY | 2021-12-24 15:42 | XMS_ITS | Encounter Summary ---
:1965 Author [facility] Address [address], [place] [address] Care Team Providers Name Role Phone Unavailable Primary Care Provider Unavailable Encounter Details Date Type Department Care Team Description 03/12/2008 [facility] [address], [facility] ERNESTINA 39[address] [facility] 3931 [facility] [address] [address] [place], [place] [phone] (Wo rk) Social History Tobacco Use Types Packs/Day Years Used Date Smoking Tobacco: Never Assessed Sex Assigned at Date Recorded Not on file documented as of this encounter Progress Notes Omer Tapia PA-C - 03/12/2008 12:01 AM CST Progress Notes signed by Omer Tapia PA-C at 03/13/08 0730 Author: Omer Tapia PA-C Service: (none) Author Type: Physician Machinery Mechanic Filed: 06/13/10 1012 Note Time: 03/12/08 0001 Status: Signed Chute Feeder: Omer Tapia PA-C (Physician Machinery Mechanic) NAME: ROLF SANTIAGO MR#: [id number] ACCT: [id number] VISIT: [id number] DICTATING CLINICIAN: OMER TAPIA PA-C CONFIRM #: [id number] LOC: 211 CLINIC PROGRESS NOTE DATE OF VISIT: 03/12/2008 SUBJECTIVE: Rolf is a pleasant 42-year-old gentleman sent to me for treatment recommendations regarding a small mass at the palmar aspect of the left index finger. No injury is noted. Use of the finger or pressing on the area makes it uncomfortable. Not using it makes it better and other than taking Tylenol he has done nothing for his problem. PAST MEDICAL HISTORY: Unremarkable. MEDICATIONS: None. ADR/ALLERGIES: NONE. OBJECTIVE: Examination finds a pleasant gentleman who is alert and oriented x3. Gait and station normal and appropriate. Mood and affect normal. Inspection of the left index finger reveals a small mass just distal to the DIP joint flexion crease on the ulnar aspect palmarly. There is full digital motion with a normal distal neurovascular exam. ASSESSMENT: Left index finger palmar hand mass. Differential diagnosis includes a small ganglion cyst versus giant cell tumor versus epidermoid inclusion cyst versus foreign body reaction versus small digital neuroma. PLAN: Treatment options were discussed with Rolf at length. I have discussed the option of continued observation versus surgical excision. At this time the patient would like to continue monitoring his symptoms. If he would like to schedule surgery he will contact me. This would be [facility] under a local anesthetic with an operative time of 30 minutes. JNC:[id number] C: 03/12/08 15:25 CONFIRM #: [id number] BRATION ENGINEER documented in this encounter Plan of Treatment Upcoming Encounters Date Type Specialty Care Team Description 12/25/2021 Appointment Vascular Surgery Gloria Quinones MD [address] [facility] N [address] (Wo rk) 12/25/2021 Appointment Vascular Surgery Nurse, [id number] Vsurg documented as of this encounter Visit Diagnoses Not on filedocumented in this encounter
--- OUTSIDE RECORDS SUMMARY | 2021-12-24 15:42 | XMS_ITS | Encounter Summary ---
:1965 Author Organization [facility] Address [address] [place] [address] Care Team Providers Name Role Phone Unavailable Primary Care Provider Unavailable Encounter Details Date Type Department Care Team Description 05/18/2006 Office Visit [facility] Filipe Ingram DPM [facility] [address] [facility] [address] [place] [address] [place] [address] [phone] Social History Tobacco Use Types Packs/Day Years Used Date Smoking Tobacco: Never Assessed Sex Assigned at Date Recorded Not on file documented as of this encounter Progress Notes Elieser Ingram DPM - 05/18/2006 12:01 AM CDT Progress Notes signed by Elieser Ingram DPM at 05/25/06 1330 Author: Elieser Ingram DPM Service: (none) Author Type: Physician Filed: 06/12/10 1815 Note Time: 05/18/06 0001 Status: Signed Sales Enablement Analyst: Elieser Ingram DPM (Physician) NAME: ROLF SANTIAGO MR#: [id number] ACCT: [id number] VISIT: [id number] DICTATING CLINICIAN: Elieser Ingram DPM JOB: [id number] LOC: 539 CLINIC PROGRESS NOTE DATE OF VISIT: 05/18/2006 SUBJECTIVE: The patient presents for follow up. He is having problems with the fifth digits on both feet. He is status post permanent nail procedure on the right great toe. ADR/ALLERGIES: HE DENIES ALLERGIES TO MEDICATIONS. OBJECTIVE: The patient has incurvation noted to the medial aspect of the fifth digits of both feet. There is no evidence of infection. No abnormalities noted. ASSESSMENT: Onychocryptosis medial aspect fifth digit both feet. PLAN: Treatment options were discussed with the patient. I discussed a permanent nail procedure. The pros, cons, risks, and complications were reviewed. He was told he could have pain, swelling, and regrowth. Each fifth toe was anesthetized with 3 mL 2% lidocaine. This was followed by a Betadine scrub. The medial aspect of the fifth toenail was then avulsed. Phenol was applied to the matrix area for 3 minutes. This was followed by an alcohol flush, Betadine and a dressing. He was given soaking instructions and will follow up with me in 1 week. ALP:[id number] C: 05/18/06 19:34 DOCUMENT: [id number] documented in this encounter Plan of Treatment Upcoming Encounters Date Type Specialty Care Team Description 12/25/2021 Appointment Vascular Surgery Gloria Quinones MD [address] [address] (Wo rk) 12/25/2021 Appointment Vascular Surgery Nurse, P6500 Jason documented as of this encounter Visit Diagnoses Not on filedocumented in this encounter
--- OUTSIDE RECORDS SUMMARY | 2021-12-24 15:42 | XMS_ITS | Encounter Summary ---
:1965 Author [facility] Address [address] [place] [address] Care Team Providers Name Role Phone Unavailable Primary Care Provider Unavailable Encounter Details Date Type Department Care Team Description 09/23/2008 Nursing Visit [facility] Herbert Alves MD [place] [address] [place] [address] [place] [address] [phone] Social History Tobacco Use Types Packs/Day Years Used Date Smoking Tobacco: Never Assessed Sex Assigned at Date Recorded Not on file documented as of this encounter Plan of Treatment Upcoming Encounters Date Type Specialty Care Team Description 12/25/2021 Appointment Vascular Surgery Gloria Quinones MD [address] [facility] N [address] (Wo rk) 12/25/2021 Appointment Vascular Surgery Nurse, [id number] Vsurg documented as of this encounter Visit Diagnoses Not on filedocumented in this encounter
--- OUTSIDE RECORDS SUMMARY | 2021-12-24 15:42 | XMS_ITS | Encounter Summary ---
:1965 Author Organization [facility] Address [address] [place] [address] Care Team Providers Name Role Phone Unavailable Primary Care Provider Unavailable Reason for Visit Procedure/Equipment (Routine) - Closed Specialty Diagnoses / Procedures Referred By Contact Refer red To Contact Diagnoses Acute pain of left knee Antonio Phelan [place] [address] [place] [address] Referral ID Status Reason Start Date Expiration Date Visits Requ ested Visits Authorized [id number] Closed 03/17/2020 06/16/2021 1 1 Encounter Details Date Type Department Care Team Description 03/31/2020 [place] Antonio Crabtree Acute pain of left Procedure [place] [address] MD [place] knee Radiology MRI [address] [place] [address] [place], [place] [address] [address] [place], [place] [phone] (Work) [phone] Social History Tobacco Use Types Packs/Day Years Used Date Smoking Tobacco: Never Sex Assigned at Date Recorded Not on file documented as of this encounter Progress Notes Antonio Phelan MD - 03/31/2020 8:30 AM CST Spoke with patient and described imaging findings, meniscus root tear, new anterior interval scarring, progression of medial compartment chondral damage. Discusses surgery (scope, debdridement, possible medial meniscus root repair) vs PT and injection. Pt would like to start with an injection and somePT. Could you please call to make him an appointment with me for the injection? AJ GIOUS ACTIVITIES DIRECTOR documented in this encounter Plan of Treatment Upcoming Encounters Date Type Specialty Care Team Description 12/25/2021 Appointment Vascular Surgery Gloria Quinones MD [address] [place] N [address] (Wo rk) 12/25/2021 Appointment Vascular Surgery Nurse, [id number] Vsurg documented as of this encounter Procedures Procedure Name Priority Date/Time Associated Diagnosis Comme nts MR KNEE LT WO IV Routine 03/31/2020 8:42 AM Acute pain of left Results for this CONT RELIGIOUS ACTIVITIES DIRECTOR knee procedure are i n the results section. documented in this encounter Results MR Knee Lt WO IV Cont (03/31/2020 8:42 AM RELIGIOUS ACTIVITIES DIRECTOR) Anatomical Region Laterality Modality Lower Extremity, Knee, Skeletal, Thigh, Leg Left Magnetic Resonance Specimen (Source) Anatomical Collection Method Collection Time Re ceived Time Location / / Volume Laterality 03/31/2020 8:17 AM RELIGIOUS ACTIVITIES DIRECTOR Impressions 03/31/2020 9:26 AM RELIGIOUS ACTIVITIES DIRECTOR TECHNIQUE: Routine MRI of the left knee [...] joint effusion. Antonio Phelan MD RAD MRI documented in this encounter Visit Diagnoses Diagnosis Acute pain of left knee documented in this encounter
--- OUTSIDE RECORDS SUMMARY | 2021-12-24 15:42 | XMS_ITS | Encounter Summary ---
:1965 Author Organization [facility] Address [address] [place] [address] Care Team Providers Name Role Phone Unavailable Primary Care Provider Unavailable Reason for Visit Procedure/Equipment (Routine) - Incomplete Specialty Diagnoses / Procedures Referred By Contact Refer red To Contact Diagnoses Acute pain of left knee Antonio Phelan MD Procedures XR Knee Rt 1-2 Views Comparison [address] [place] [address] Referral ID Status Reason Start Date Expiration Date Visits V isits Requested Authorized [id number] Incomplete 03/17/2020 06/16/2021 1 1 Encounter Details Date Type Department Care Team Description 03/17/2020 [place] [place] Antonio Crabtree Acute pain of left Procedure [place] [address] MD [address] knee Radiology [address] [address] [place], [place] [address] [address] [place], [place] [phone] (Work) [phone] Social History Tobacco Use Types Packs/Day Years Used Date Smoking Tobacco: Never Sex Assigned at Date Recorded Not on file documented as of this encounter Plan of Treatment Upcoming Encounters Date Type Specialty Care Team Description 12/25/2021 Appointment Vascular Surgery Gloria Quinones MD [address] [place] [address] [address] (Wo rk) 12/25/2021 Appointment Vascular Surgery Nurse, [id number] Vsurg documented as of this encounter Procedures Procedure Name Priority Date/Time Associated Comments Diagnosis XR KNEE RT 1-2 VIEWS Routine 03/17/2020 10:53 AM Acute pain of left Results for this COMPARISON SPOUT LINER knee procedure are i n the results section. documented in this encounter Results XR Knee Rt 1-2 Views Comparison (03/17/2020 10:53 AM SPOUT LINER) Anatomical Region Laterality Modality Lower Extremity, Knee Digital Radiograph y Specimen (Source) Anatomical Collection Method Collection Time Re ceived Time Location / / Volume Laterality 03/17/2020 10:41 AM SPOUT LINER Impressions 03/17/2020 12:08 PM SPOUT LINER COMPARISON: ??None. FINDINGS: ?? Right knee: 3 [...] Knee Lt 3 Views (03/17/2020 10:53 AM SPOUT LINER) Anatomical Region Laterality Modality Lower Extremity, Knee Digital Radiograph y Specimen (Source) Anatomical Collection Method Collection Time Re ceived Time Location / / Volume Laterality 03/17/2020 10:41 AM SPOUT LINER Impressions 03/17/2020 12:08 PM SPOUT LINER COMPARISON: ??None. FINDINGS: ?? Right knee: 3 [...]
--- OUTSIDE RECORDS SUMMARY | 2021-12-24 15:42 | XMS_ITS | Encounter Summary ---
:1965 Author Organization [facility] Address [address] [place] [address] Care Team Providers Name Role Phone Unavailable Primary Care Provider Unavailable Reason for Referral Therapies (Routine) - Closed Specialty Diagnoses / Procedures Referred By Contact Refer red To Contact Diagnoses Chronic left-sided low back pain with left-sided sciatica (HRC) Jacqueline Elam MD [address] [place] [address] [address] [place] [address] Referral ID Status Reason Start Date Expiration Date Visits Requ ested Visits Authorized [id number] Closed 10/20/2020 10/20/2021 1 29 Scheduling Instructions Your provider has recommended an appoint ment with [facility]. You may call [phone] to schedule your a ppointment. We suggest you call your health insurance company about your coverage an d benefits for this appointment. Reason for Visit Reason Comments CONSULT Back pain Encounter Details Date Type Department Care Team Description 10/20/2020 Office Visit [facility] Jacqueline Mata, Chronic left-sided Orthopedic Urgent MD low back pain with Care [address] [place], [place] [address]ROSI JAVIER left-sided sciatica [address] [place], [place] (Primary Dx) MOREILA Shay [id number] [phone] Social History Tobacco Use Types Packs/Day Years Used Date Smoking Tobacco: Never Sex Assigned at Date Recorded Not on file documented as of this encounter Last Filed Vital Signs Vital Sign Reading Time Taken Comments Blood Pressure - - Pulse - - Temperature 36.7 ??C (98 ??F) 10/20/2020 9:10 AM CDT Respiratory Rate - - Oxygen Saturation - - Inhaled Oxygen Concentration - - Weight 103 kg (227 lb) 10/20/2020 9:10 AM CDT Height - - Body Mass Index 30.79 08/18/2020 8:18 AM CDT documented in this encounter Patient Instructions Patient InstructionsYuan Mcgowan, ATC - 10/20/2020 9:[address] Jacqueline Elam MD Sports & Orthopedic Medicine [facility] Medication Requests: Prescriptions are not filled on Weekends or on Weekdays after 3:00PM For all medication refills: Request a refill using MyChart or contact your Pharmacy MRI Scheduling: To schedule an MRI at [facility] please call [phone] Paperwork Requests: Questions regarding FMLA or disability paperwork please call [phone] Phone lines are answered 8AM to 5PM Tuesday - Tuesday. General Scheduling: To schedule an appointment, please call [phone] [facility] Nurse Line: [phone] Workers??? Compensation: Please contact our department for any Work Comp concerns at Email: [email or web address] Diagnosis: 1. Chronic left-sided low back pain with left-sided sciatica (HRC) Plan: Follow Up: As needed if symptoms are not improving or worsen. If you have any questions regarding your visit or next steps, please contact us at [phone]. RICE: - Utilize ice over the injured area (ice bag or bag of frozen vegetables) several times per day for up to 20 minutes at a time. Be sure to place a cold wet wash cloth or towel between the ice andyour skin. - Avoid activities that cause pain. Physical Therapy: Our physical therapist will see you today. Subsequent appointments can be made at the front desk monitor or by calling [phone]. Medications: Over the Counter Medications: Acetaminophen (Tylenol) taken per bottle instructions unless specified by physician. Ibuprofen (Motrin) taken per bottle instructions unless specified by physician. Your physician has sent a prescription for cyclobenzaprine to your preferred pharmacy. Take this medication as instructed. Please be sure to review all information provided on your prescription regarding this drug and any potential side effects you may experience. Ask your pharmacist if any questions arise. Imaging Brake Operator: [place] [address]. Call [phone] to schedule. Medication Requests: Prescriptions are filled on Weekdays before 3:00PM For all medication refills: Request a refill using [facility] or contact your Pharmacy Paperwork Requests: FMLA or disability paperwork can be faxed to: [place] - [phone] Please allow 7-10 business days for completion of all paperwork. [employer] Worker's Compensation Services: E-mail Address: [email or web address] To request copies of your medical records, call: [phone] (option 4) documented in this encounter Progress Notes Jacqueline Elam MD - 10/20/2020 12:00 AM CDT NAME: YANELI SANTIAGO CSN: [id number] CLINIC NOTE DATE OF SERVICE: 10/20/2020 : 1965 SUBJECTIVE: This is a 55-year-old male who presents with acute on chronic left- sided low back pain with some radiation into the left leg. He has tried ice, heat, and Tylenol. He thinks that by resurfacing a driveway with his son, his symptoms have worsened. He says that his symptoms usually respond toexercises. He is hoping to get some physical therapy lined up. REVIEW OF SYSTEMS: No fevers, chills, or joint pain or swelling in other joints. He is getting some numbness and tingling into the left leg but no bowel or bladder incontinence. CURRENT MEDICATIONS: Reviewed on EMR. ALLERGIES: REVIEWED ON EMR. PAST MEDICAL HISTORY: Knee injury, finger injury, toe injury. PAST SURGICAL HISTORY: Knee surgery, finger surgery, toe surgery, ear surgery. 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 PHYSICAL EXAM: Temperature is 98.6. Weight 227 pounds. Pain 3 to 10/10. GENERAL: He is alert, pleasant, and in no acute distress. On inspection of his low back, there are no overlying skin changes or alignment abnormalities. He has tenderness over the paraspinous muscles as well as the lumbar facets on the left compared to the right. Motion is limited with flexion, extension, lateral bending, and axial rotation due to pain. Straight leg raise causes pain in the left leg but no numbness or tingling. There is normal sensation and deep tendon reflexes with preserved strength bilaterally. ASSESSMENT: Acute on chronic left-sided low back pain with some radiation into the left leg consistent with myofascial pain with possible radiculopathy. PLAN: I reviewed the diagnosis with the patient and his . I suggested Tylenol, ibuprofen, and topical treatment. I prescribed Flexeril to use before bed only. He understands not to drive or drink alcohol when taking this medication. I sent him for physical therapy where he will get exercises and mo dalities to treat his symptoms. He can call to arrange a lumbar MRI to evaluate for nerve root impingement or facet arthropathy if his symptoms persist or worsen despite the above treatment. He is herewith his , who understands the plan. I offered a note for work, but he is able to work in spite of his pain so declined. JACQUELINE ELAM MD SDW/CRUZ /[id number] documented in this encounter Plan of Treatment Upcoming Encounters Date Type Specialty Care Team Description 12/25/2021 Appointment Vascular Surgery Gloria Quinones MD [address] [place] [address] [address] (Wo rk) 12/25/2021 Appointment Vascular Surgery Nurse, [id number] Vsurg Scheduled Referrals Name Type Priority Associated Diagnoses Order S chedule Physical Therapy Referral Routine Chronic left-sided low b ack Ordered: 10/20/2020 pain with left-sided sciatic a documented as of this encounter Visit Diagnoses Diagnosis Chronic left-sided low back pain with le ft-sided sciatica (HRC) - Primary documented in this encounter
--- OUTSIDE RECORDS SUMMARY | 2021-12-24 15:42 | XMS_ITS | Encounter Summary ---
:1965 Author Organization [facility] Address [address] [place] [address] Care Team Providers Name Role Phone Unavailable Primary Care Provider Unavailable Reason for Referral (Routine) - Closed Specialty Diagnoses / Procedures Referred By Contact Refer red To Contact Diagnoses Chronic pain of left knee Antonio Phelan MD Procedures Triamcinolone Acet Inj Nos: (per 10 mg) [address] [place] [address] Referral ID Status Reason Start Date Expiration Date Visits Requ ested Visits Authorized [id number] Closed 08/19/2020 11/18/2021 1 1 Reason for Visit Reason Comments Follow-up left knee Encounter Details Date Type Department Care Team Description 08/18/2020 Office Visit Antonio Gross, Chroni c pain of left Orthopaedics & Sports MD knee (Primary Dx) Medicine [address] [address] [place] [address] [phone] Social History Tobacco Use Types Packs/Day Years Used Date Smoking Tobacco: Never Sex Assigned at Date Recorded Not on file documented as of this encounter Last Filed Vital Signs Vital Sign Reading Time Taken Comments Blood Pressure - - Pulse - - Temperature - - Respiratory Rate - - Oxygen Saturation - - Inhaled Oxygen Concentration - - Weight 99.8 kg (220 lb) 08/18/2020 8:18 AM CDT Height 182.9 cm (6') 08/18/2020 8:18 AM CDT Body Mass Index 29.84 08/18/2020 8:18 AM CDT documented in this encounter Progress Notes Antonio Phelan MD - 08/18/2020 12:00 AM CDT NAME: ROLF SANTIAGO [facility]: [id number] CLINIC NOTE DATE OF SERVICE: 08/18/2020 : 1965 ID: A 55-year-old male with a history of chronic left knee pain status post knee arthroscopy and meniscectomy in September of 2019 at an outside hospital, who presents today for followup. INTERVAL HISTORY: The patient last had an injection in March 2020 as well as has been working on a home exercise program. He states that the injection overall helped for about 6-8 weeks. However, heslowly had recurrence. He states with everyday activities, he has minimal symptoms with his left knee. However, when getting up from a chair, he does occasionally feel locking in his knee. This has happened twice. His knee has also buckled to the point that he fell over 2 times. This has happened rahul the last couple of weeks. He is otherwise only taking Tylenol. He states symptoms are minimal. His pain is localized over the posterolateral aspect of the knee. PHYSICAL EXAMINATION: The patient is able to ambulate with a nonantalgic gait. On supine examination, the patient's left knee has no effusion. He has range of motion from 0-135 degrees of flexion. He has mild posteromedial as well as posterolateral joint line tenderness to palpation. He has a negative Lyla's to both varus and valgus load. He has a negative ligamentous exam. He has a negative Kenji's, negative Hoffa's. Distally neurovascularly intact. 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 PLAN: I discussed with the patient that I would recommend continued nonsurgical intervention, including consideration of a repeat corticosteroid injection and continuing his home exercise program if his symptoms are minimal. If he develops worsening mechanical symptoms, I would like him to see me backon a sooner basis for consideration of knee arthroscopy. As his symptoms are mostly posterolateral and not posteromedial in nature, I would be hesitant to pursue a formal medial meniscus root tear repair, but we could consider this if he develops worsening medial-sided knee symptoms in addition to hismechanical symptoms in the future. At this point, we will pursue an injection, and he will follow upwith me on an as-needed basis. PROCEDURE NOTE: After verbal consent was obtained, the patient's left knee was sterilely prepped with alcohol and chlorhexidine. Then, 40 mg of triamcinolone and 4 mL of 1% lidocaine plain was injectedinto the left knee via a superolateral portal without difficulty. The injection site was covered with a Band-Aid. Total time spent on the visit is 28 minutes, including csi-dbdy-ro-face time. MD STEPHANIE TINOCO/AQMatt /[id number] documented in this encounter Plan of Treatment Upcoming Encounters Date Type Specialty Care Team Description 12/25/2021 Appointment Vascular Surgery Gloria Quinones MD [address] [place] [address] (Wo rk) 12/25/2021 Appointment Vascular Surgery Nurse, [id number] [place] documented as of this encounter Visit Diagnoses Diagnosis Chronic pain of left knee - Primary Pain in joint, lower leg documented in this encounter
--- OUTSIDE RECORDS SUMMARY | 2021-12-24 15:43 | XMS_ITS | Encounter Summary ---
:1965 Author Organization [facility] Address [address] [place] [address] Care Team Providers Name Role Phone Unavailable Primary Care Provider Unavailable Reason for Visit Reason Comments Other Encounter Details Date Type Department Care Team Description 11/24/2005 Telephone [facility] Kathleen Velez Other [address] [place] [address] Social History Tobacco Use Types Packs/Day Years Used Date Smoking Tobacco: Never Assessed Sex Assigned at Date Recorded Not on file documented as of this encounter Progress Notes Kathleen Sosa - 11/24/2005 3:55 PM CDT Phone Note filed by Kathleen Sosa RN at 06/09/10920 Author: Kathleen Sosa RN Service: (none) Author Type: (none) Filed: 06/09/10920 Note Time: 11/24/051554 Status: Signed Domestic Housekeeper: Matheus Miranda CLINICIAN FOLLOW-UP: None IMPRESSION: Sore Throat SX/ADVICE: Patient calling with an area on back of throat that is sore. States it is about quarter sized. Started about 5 days or so ago. Feels like phlgem is stuck. No ear pain, nor fever. No cold symptoms. Denies emergent, urgent, semi-urgent symptoms DISPOSITION: HOME MANAGEMENT, advised to gargle with warm salt water, eat soft foods or suck on flavored frozen desserts. May also try a decongestant or antihistamine. Advised to call back by Tuesday, 11/26 if no improvement. Patient/Caller agrees with plan and denies additional questions. Reference(s) Used: [facility] Sore Throat Nursing Reference, Call Complete. *SH~PNNL~SCHOLARII ~ Created on 24Nov2005 3:55pm by KATHLEEN SOSA ETICS PRESSER documented in this encounter Plan of Treatment Upcoming Encounters Date Type Specialty Care Team Description 12/25/2021 Appointment Vascular Surgery Gloria Quinones MD [address] [facility] N [id number] (Wo rk) 12/25/2021 Appointment Vascular Surgery Nurse, [id number] Vsurg documented as of this encounter Visit Diagnoses Not on filedocumented in this encounter
--- OUTSIDE RECORDS SUMMARY | 2021-12-24 15:43 | XMS_ITS | Encounter Summary ---
:1965 Author [facility] Address [address] [address] Care Team Providers Name Role Phone Unavailable Primary Care Provider Unavailable Encounter Details Date Type Department Care Team Description 11/17/2003 Office Visit [facility] [place] [address] [facility] [address] [place] [address] [place] [address] [phone] Social History Tobacco Use Types Packs/Day Years Used Date Smoking Tobacco: Never Assessed Sex Assigned at Date Recorded Not on file documented as of this encounter Progress Notes Akhil Davies MD - 11/17/2003 12:01 AM CDT Progress Notes signed by Akhil Davies MD at 11/28/03 2207 Author: Akhil Davies MD Service: (none) Author Type: Physician Filed: 06/12/10 0027 Note Time: 11/17/03 0001 Status: Signed [employer]: Akhil Davies MD (Physician) NAME: ROLF SANTIAGO MR: [id number] ACCT: [id number] VISIT: [id number] DICTATING CLINICIAN: AKHIL DAVIES MD JOB: [id number] CLINIC PROGRESS NOTE DATE OF VISIT: 11/17/2003 SUBJECTIVE: The patient is noting pain in his left groin, lower abdominal area. He noticed this first on Tuesday night. It has been something that he has noted on and off. He denies any pain down into his legs. Does not recall any particular injury. However, had been squatting and loading some cases of pop in a cooler at work that day. He has not had any hernias before. Denies any urinary changes as far as pain or discharge or increased frequency. No change in bowel pattern. CURRENT MEDICATIONS: None. ADR/ALLERGIES: NO KNOWN DRUG ALLERGIES. OBJECTIVE: VS: BP: 132/79. T: 98.8. P: 77. R: 22. Appearing well-nourished and hydrated. He walks without obvious discomfort. His area of pain is in the left lower abdomen just above the inguinal area. There is no bulging or mass affect appreciated. Bowel sounds were active. The inguinal region was without palpable hernias or lymphadenopathy. Testicles are down without masses. ASSESSMENT: Left lower abdominal pain. Appears muscular strain. PLAN: No evidence of herniation currently. We discussed indications for more emergent recheck or if changes are developing. Right now we are going to use some stretching techniques, some ibuprofen, and expect improvement over the next few days. BOR:[id number] C: 11/18/03 20:25 DOCUMENT: [id number] documented in this encounter Plan of Treatment Upcoming Encounters Date Type Specialty Care Team Description 12/25/2021 Appointment Vascular Surgery Gloria Quinones MD [address] [facility] [place] [address] (Wo rk) 12/25/2021 Appointment Vascular Surgery Nurse, [id number] [place] documented as of this encounter Visit Diagnoses Not on filedocumented in this encounter
--- OUTSIDE RECORDS SUMMARY | 2021-12-24 15:43 | XMS_ITS | Encounter Summary ---
:1965 Author Organization [facility] Address [address], [place] [address] Care Team Providers Name Role Phone Unavailable Primary Care Provider Unavailable Encounter Details Date Type Department Care Team Description 03/11/2004 PN Conversion Only [facility] CONVERSION Social History Tobacco Use Types Packs/Day Years Used Date Smoking Tobacco: Never Assessed Sex Assigned at Date Recorded Not on file documented as of this encounter Plan of Treatment Upcoming Encounters Date Type Specialty Care Team Description 12/25/2021 Appointment Vascular Surgery Gloria Quinones MD [address] [place] [phone] (Wo rk) 12/25/2021 Appointment Vascular Surgery Nurse, [id number] Vsurg documented as of this encounter Visit Diagnoses Not on filedocumented in this encounter
--- OUTSIDE RECORDS SUMMARY | 2021-12-24 15:43 | XMS_ITS | Encounter Summary ---
:1965 Author Organization [employer] Address [address], [place] [address] Care Team Providers Name Role Phone Unavailable Primary Care Provider Unavailable Encounter Details Date Type Department Care Team Description 01/30/2003 PN Conversion Only [facility] Dmitri Trevizo, [address] [place] [address] [phone] [place], [place] [address] (Wo rk) Social History Tobacco Use Types Packs/Day Years Used Date Smoking Tobacco: Never Assessed Sex Assigned at Date Recorded Not on file documented as of this encounter Progress Notes Phone Note, Clinician - 03/09/2003 12:01 AM CST Phone Note filed by Clinician Phone Note at 06/09/10 5942 Author: Clinician Phone Note Service: (none) Author Type: Resource Filed: 06/09/10 1309 Note Time: 03/09/03 0001 Status: Signed Trim Technician: Clinician Phone Note (Resource) SUBJECTIVE: PATIENT COMPLAINS OF... Mild to * HOME PHONE:[phone] * moderate headache without * WORK PHONE:[phone] * neurological symptoms. -Myalgias -Mild nausea Pt. states he has headache in the center of his forehead and mild upper arm pain bilaterally He states he has had this sensation before. Usually sleep helps. Tylenol earlier did not help. ALLERGIES/SENSITIVITIES... nkda 07/03/01 04/27/02 03/09/03 CURRENT MEDICATIONS... valtrex, tylenol 07/03/01 04/27/02 03/09/03 PERTINENT PAST HISTORY... HEALTHY 07/03/01 04/27/02 03/09/03 ASSESSMENT: Headache-(adult)-triage guideline DISPOSITION: HOME CARE PLAN: RECOMMENDED THE FOLLOWING... Referenced guideline Headache-(adult)-triage guideline. -Relax or sleep in a quiet, darkened room with head elevated -Use massage and heat to back of neck and shoulders to help relax muscles -Apply cool or warm compresses to head for pain relief -Sip small amounts of clear liquid to avoid nausea -Use relaxation techniques for anxiety or tension -Take analgesic of choice as directed on package Confirm or reinforce treatment if already discussed by provider Patient information given per Headache nurse guidelines. Verbalizes understanding and agrees with phone care recommendation INFORMED PATIENT TO CALLBACK IF... Reasons to call back reviewed- caller verbalizes understanding of the need to call back for the following reasons: -No improvement with home management -Symptoms persist or worsen -Any other questions or concerns CALL BY FIDEL MCDOWELL 03/09/2003 08:13PM [phone] ADDENDUM: Dmitri Brown 01/30/2003 12:01 AM CST Progress Notes signed by Dmitri Trevizo MD at 12/04/03 1501 Author: Dmitri Trevizo MD Service: (none) Author Type: Physician Filed: 06/11/10 1722 Note Time: 01/30/03 0001 Status: Signed Trim Technician: Dmitri Trevizo MD (Physician) NAME: ROLF SANTIAGO MR: [id number] ACCT: [id number] VISIT: [id number] DICTATING CLINICIAN: DMITRI TREVIZO MD JOB: [id number] CLINIC PROGRESS NOTE DATE OF VISIT: 01/30/2003 SUBJECTIVE: The patient is a 37-year-old presenting with myalgias since yesterday and now a plugging and humming in the right ear. Denies otalgia, fever, cough, or sore throat. PAST MEDICAL HISTORY: Negative. MEDICATIONS: None. ADR/ALLERGIES: NONE. OBJECTIVE: VS: BP: 142/83. T: 97.9. P: 85. R: 16. The right external canal shows some clear serous fluid. There is a good light reflex. The left external canal occluded with cerumen. This is lavaged, and the TM is clear and translucent. Posterior pharynx is clear. No cervical adenopathy. Lungs clear, no wheezes, rhonchi, rales. Heart regular rate and rhythm without murmur. ASSESSMENT: Left ear ceruminosis. Right eustachian tube dysfunction and tinnitus. PLAN: Symptomatic care, Sudafed. If symptoms persist or worsen, will recheck. TT: CT: [id number] C: 01/30/03 15:41 DOCUMENT: [id number] Andrews Ingram DPM - 12/18/2002 12:01 AM CST Progress Notes signed by Andrews Ingram DPM at 01/08/03 2204 Author: Andrews Ingram DPM Service: (none) Author Type: Physician Filed: 06/11/10 1636 Note Time: 12/18/02 0001 Status: Signed Trim Technician: Andrews Ingram DPM (Physician) NAME: ROLF SANTIAGO MR: [id number] ACCT: [id number] VISIT: [id number] DICTATING CLINICIAN: ANDREWS INGRAM DPM JOB: [id number] CLINIC PROGRESS NOTE DATE OF VISIT: 12/18/2002 SUBJECTIVE: Patient presents for followup. He is one week postop nail procedure on his right great toe. He indicates he is doing well. OBJECTIVE: Necrotic tissue present on the nail borders. No evidence of infection. No abnormalities noted. ASSESSMENT: One week postop P and A, right great toe. PLAN: Treatment options were discussed with the patient. The necrotic tissue was debrided. He will continue with the current treatment for the remainder of the week and then can discontinue all treatment. TT: CT: [id number]:[id number] C: 12/19/02 08:50 DOCUMENT: [id number] TRIC POWER SUPERINTENDENT Andrews Ingram DPM - 12/11/2002 12:01 AM CDT Progress Notes signed by Andrews Ingram DPM at 12/28/02 0853 Author: Andrews Ingram DPM Service: (none) Author Type: Physician Filed: 06/11/10 1629 Note Time: 12/11/022021 Status: Signed Trim Technician: Andrews Ingram DPM (Physician) NAME: ROLF SANTIAGO MR: [id number] ACCT: [id number] VISIT: [id number] DICTATING CLINICIAN: ANDREWS INGRAM DPM JOB: [id number] CLINIC PROGRESS NOTE DATE OF VISIT: 12/11/2002 SUBJECTIVE: The patient presents for initial clinic visit with me. He is having problems with his right great toenail. He states he did have a previous nail procedure years ago on the left foot. This did work well for him. ADR/ALLERGIES: HE DENIES ALLERGIES TO MEDICATIONS. MEDICATIONS: He is not taking medications. OBJECTIVE: The patient is neurovascularly intact. He does have an incurvated nail border on the lateral aspect of the right great toe. There is no evidence of infection. No other abnormalities noted. ASSESSMENT: Onychocryptosis, lateral aspect, right great toe. PLAN: Treatment options were discussed with the patient. I discussed with him a permanent nail procedure. The pros, cons, risks, and complications were reviewed. He was told he could have pain, swelling, infection, and regrowth. He does understand this and consents to the procedure. The right great toe was anesthetized with 3 cc of 2% lidocaine. This was followed by a Betadine scrub. The lateral aspect of the right great toenail was then avulsed. Phenol was applied to the matrix area for three minutes. This was followed by an alcohol flush, Betadine on a dressing. He was given soaking instructions and will follow up with me in one week. TT: CT: [id number]:[id number] C: 12/11/02 19:01 DOCUMENT: [id number] Geetha Christie - 10/19/2002 12:01 AM CDT Progress Notes signed by Geetha Chery MD at 10/19/02 1537 Author: Geetha Chery MD Service: (none) Author Type: Physician Filed: 06/11/10 1538 Note Time: 10/19/02 0001 Status: Signed Trim Technician: Geetha Chery MD (Physician) NAME: ROLF SANTIAGO MR: [id number] ACCT: [id number] VISIT: [id number] DICTATING CLINICIAN: GEETHA CHERY MD JOB: [id number] CLINIC PROGRESS NOTE DATE OF VISIT: 10/19/2002 SUBJECTIVE: Fernando is in today because of a rash. He has this both in his scalp, in the folds along the side of his nose, and gets into his eyebrows at times. It has been chronic and recurrent. DRUG ALLERGIES: NONE. MEDS: None. OBJECTIVE: VS: BP: 136/78. Wt: 240. SKIN: Exam shows some brownish-reddish scaling that appears typical of seborrhea involving both his scalp and the areas around his nose. ASSESSMENT: Seborrhea. PLAN: Will treat that with Selsun Gold shampoo once or twice a week to the scalp. He was advised in the use of aloe for the rash about the face. He also can use 1% hydrocortisone sparingly to reduce the redness and itching at times. TT: CT: [id number] C: 10/19/02 14:03 DOCUMENT: [id number] documented in this encounter Plan of Treatment Upcoming Encounters Date Type Specialty Care Team Description 12/25/2021 Appointment Vascular Surgery Gloria Quinones MD [address] [address] (Wo rk) 12/25/2021 Appointment Vascular Surgery Nurse, [id number] Vsurg documented as of this encounter Visit Diagnoses Not on filedocumented in this encounter
--- OUTSIDE RECORDS SUMMARY | 2021-12-24 15:43 | XMS_ITS | Encounter Summary ---
:1965 [facility] Address [address] [place] [address] Care Team Providers Name Role Phone Unavailable Primary Care Provider Unavailable Encounter Details Date Type Department Care Team Description 06/27/2002 PN Conversion Only [place] Lyudmila Benites, Medicine LUC[place], [place] [address] [place] [address] [place] [address] Social History Tobacco Use Types Packs/Day Years Used Date Smoking Tobacco: Never Assessed Sex Assigned at Date Recorded Not on file documented as of this encounter Progress Notes Lyudmlia Benites - 06/27/2002 12:01 AM CDT Progress Notes signed by Lyudmila Benites APRN, [place] at 07/18/02 1442 Author: NIKOLE Purivs Service: (none) Author Type: Nurse Practitioner Filed: 06/11/10 1353 Note Time: 06/27/02 0001 Status: Signed Division Chair: NIKOLE Purvis (Nurse Practitioner) NAME: YANELI SANTIAGO MR: [id number] ACCT: [id number] VISIT: [id number] DICTATING CLINICIAN: LYUDMILA BENITES NP JOB: [id number] CLINIC PROGRESS NOTE DATE OF VISIT: 06/27/2002 SUBJECTIVE: Chief Complaint: Ear pain. Patient has been having problems with pain in his left ear extending down into the neck intermittently. He has had sinus congestion and discharge. He has not been taking any decongestant. He has been afebrile. OBJECTIVE: VS: BP: 122/78. T: 97.1 orally. Wt: 240. Patient does not appear in acute distress. HEENT: The left TM is slightly bulging. There is also some erythema in the canal and excessive wax that was successfully irrigated. The pharynx was clear. Mild tenderness over the maxillary sinuses. Colored thick postnasal drainage. Breath sounds clear. ASSESSMENT: Sinusitis. [place]am externa. Ceruminosis. PLAN: Amoxicillin 500 mg 1 p.o. t.i.d. times ten days. Cortisporin otic suspension 4 drops left ear t.i.d. for seven to ten days. Follow up p.r.n. DIAGNOSIS: Sinusitis. Gresham externa. Ceruminosis. TT: CT: SERENA:[id number] C: 07/01/02 17:22 DOCUMENT: [id number] Geetha Chery - 06/19/2002 12:01 AM CDT Progress Notes signed by Geetha Chery MD at 06/20/02 1231 Author: Geetha Chery MD Service: (none) Author Type: Physician Filed: 06/11/10 1344 Note Time: 06/19/02 0001 Status: Signed Division Chair: Geetha Chery MD (Physician) NAME: YANELI SANTIAGO MR: [id number] ACCT: [id number] VISIT: [id number] DICTATING CLINICIAN: GEETHA CHERY MD JOB: [id number] CLINIC PROGRESS NOTE DATE OF VISIT: 06/19/2002 SUBJECTIVE: Fernando is in today for two problems. One is that he has had this rather chronic itching on his lower leg that has been present for several months. It kind of comes and goes but never really goes way completely. He finds it fairly pruritic at times. His second concern was that for sometime now he has been having pain in the right heel. He notices this specifically when he gets up to walk in the mornings. He has a lot of heel pain and then it gradually wears down and he is more comfortable as the day goes on but he said if he happens to turn or twist his heel just in a wrong way it will also cause a lot of pain. OBJECTIVE: On exam currently of his lower extremities, he does have a chronic dermatitis involving the lower extremities on the lateral borders. He has been scratching these a fair amount. There is a fair amount of thickness to the skin. Exam of the right foot shows that the area where he has a maximum tenderness is directly at the distal part of the calcaneus on the medial surface. ASSESSMENT: 1. Plantar fasciitis. 2. Factitial dermatitis of the legs. PLAN: He will be treated with some Westcort ointment 0.2% b.i.d. to his dermatitis and he was given information on materials regarding the plantar fasciitis. TT: CT: DEYANIRA:[id number] C: 06/20/02 11:26 DOCUMENT: [id number] Rima Meza MD - 06/05/2002 12:01 AM CDT Progress Notes signed by Rima Meza MD at 04/06/03 1551 Author: Rima Meza MD Service: (none) Author Type: Physician Filed: 06/11/10 1330 Note Time: 06/05/02 0001 Status: Signed Division Chair: Rima Meza MD (Physician) NAME: YANELI SANTIAGO MR: [id number] ACCT: [id number] VISIT: [id number] DICTATING CLINICIAN: RIMA MEZA MD JOB: [id number] CLINIC PROGRESS NOTE DATE OF VISIT: 06/05/2002 SUBJECTIVE: Yaneli is a 36-year-old male who states he has had an irritated mole on the left side of his neck for the past week. He is not on any regular medications. ADR/ALLERGIES: NO KNOWN DRUG ALLERGIES. He does not smoke. OBJECTIVE: VS: BP: 140/90. Wt: 240 lb. A well-developed, well-nourished male in no acute distress. On the left side of his neck there is a small skin tag that does appear to be quite irritated. There is a little bit larger skin tag on his left shoulder which is non-irritated. The irritated lesion was clipped and then both of them were frozen with liquid nitrogen in a freeze/thaw method. ASSESSMENT: Skin tags. PLAN: Will have him follow up as needed. TT: CT: LES:[id number] C: 06/06/02 22:40 DOCUMENT: [id number] [facility] Phone Note, Clinician - 04/27/2002 12:01 AM CST Phone Note filed by Clinician Phone Note at 06/09/10 1042 Author: Clinician Phone Note Service: (none) Author Type: Resource Filed: 06/09/10 1049 Note Time: 04/27/02 0001 Status: Signed Division Chair: Clinician Phone Note (Resource) - TREATING PROVIDER: LORRAINE HENTGES * HOME PHONE:[phone] * SUBJECTIVE: * WORK PHONE:[phone] * PATIENT COMPLAINS OF... This is a late entry; Call was made at 1:15am today. Patient calling due to having a fever of 102.2 oral chest. No nausea. No swelling or heat in painfull joints. ALLERGIES/SENSITIVITIES... nkda 07/03/01 04/27/02 CURRENT MEDICATIONS... valtrex, tylenol 07/03/01 04/27/02 PERTINENT PAST HISTORY... HEALTHY 07/03/01 04/27/02 ASSESSMENT: Fever DISPOSITION: CONTACTED ONCALL PLAN: RECOMMENDED THE FOLLOWING... Nurse advised as per fever guidline. INFORMED PATIENT TO CALLBACK IF... If sx persist or worsen. [facility]... Patient caled back @ 2:10am says feevr went down to 101 but joint pain remains the same. Nurse brett manager distribution center; Dr. Mensah. she advised pat ient rest worsen or if thay persist more than 3 days he should be seen. NURSE CALL BACK. Advised patient as per manager distribution center. CALL BY DRE WILLIS RN 04/27/2002 05:30AM [phone] ADDENDUM: <> 04/27/2002 05:51PM by ERNIE PIZANO RN: calling-wondering if pt needs to go to urgent care, last urinated 9 hours ago. Drinking fluids and taking advil. Temp now 100-101,joint stiffness less. Told and pt if he doesn't urinated in 12 hours or if his mouth feels like cotton inside,he needs to be evaluated. Recommended eating a little food before taking advil. No other questio ns at this time. [facility] Conversion, [facility] - 01/03/2002 12:01 AM CST Phone Note signed by at 01/03/02 1103 Author: [facility] Conversion Service: (none) Author Type: (none) Filed: 06/11/10 1019 Note Time: 01/03/02 0001 Status: Signed Division Chair: Matheus Conversion IMPRESSION: holter monitor results TO: GEETHA CHERY FROM: KATHLEEN PIEDRA [id number] 01/03/02 * PROVIDER MESSAGE: RETURN * 11:03AM * CALL REQUESTED * MESSAGE: pt had a holter monitor for * HOME PHONE:[phone] * 24 hrs at [facility], would * WORK PHONE:[phone] * like to ge t results, was done on * CONTACT PHONE:[phone] * 12/19, please call SUBJECTIVE: ALLERGIES/SENSITIVITIES... nkda 07/03/01 CURRENT MEDICATIONS... valtrex, tylenol 07/03/01 PERTINENT PAST HISTORY... HEALTHY 07/03/01 WEIGHT: ASSESSMENT: holter monitor results PLAN: DISPOSITION: NO DISPOSITION GIVEN CALL BY KATHLEENKimo PIEDRA 01/03/2002 11:03AM [id number] ADDENDUM: <> 01/03/2002 01:07PM by JOSE MESSINA: advised pt these are extra beats that are not harmful to the heart. if they are persistant then dr chery would advised a cardiology referra l/ per dr chery [facility] D[facility] Conversion, [facility] - 12/27/2001 12:01 AM CST Phone Note signed by at 12/27/01 0902 Author: [facility] Conversion Service: (none) Author Type: (none) Filed: 06/11/10 1008 Note Time: 12/27/012021 Status: Signed Division Chair: Matheus Miranda IMPRESSION: Requesting results hrt monitor TO: GEETHA CHERY FROM: SHANA INIGUEZ RN [phone] * PROVIDER MESSAGE: RETURN * 12/27/01 09:02AM * CALL REQUESTED * MESSAGE: Pt turned in holter monitor * HOME PHONE:[phone] * on 11-23-01 and is requesting. * WORK PHONE:[phone] * Turned terri cerrato into [facility]. * CONTACT PHONE:[phone] * SUBJECTIVE: * wk# on Tuesday when Dr Gonzalez * ALLERGIES/SENSITIVITIES... nkda * comes back- till 1:30p * 07/03/01 * PHARMACY: [phone] * CURRENT MEDICATIONS... valtrex, * synderPl * tylenol 07/03/01 PERTINENT PAST HISTORY... HEALTHY 07/03/01 WEIGHT: ASSESSMENT: Requesting results hrt monitor PLAN: DISPOSITION: NO DISPOSITION GIVEN CALL BY SHANA INIGUEZ RN 12/27/2001 09:00AM [phone] ADDENDUM: <> 01/02/2002 09:13AM by SHANA INIGUEZ RN: Pt calling back for results. will be at [phone] till 1pm then [phone] after 2pm NURSE FOLLOW UP NEEDED. <> 01/03/2002 01:14PM by JOSE MESSINA: called pt Geetha Christie - 12/18/2001 12:01 AM CST Progress Notes signed by at 04/14/022021 Author: Geetha Chery MD Service: (none) Author Type: Physician Filed: 06/11/10 0955 Note Time: 12/18/012021 Status: Signed Division Chair: Geetha Chery MD (Physician) IMPRESSION: Cardiac arrhythmia, probable PVCs. SUBJECTIVE: Fernando comes in today because of symptoms of irregular heart beat. He has had this now for about the last week. He said that it came on when he was at work and it seems to happen when he is at rest or when he is active. It does not wake him up at night, there has not been any problems with chest pain with it. OBJECTIVE: VS: BP: 136/80. P: 80. Wt: 241. The heart sounds were clear. No murmurs were noted. The rhythm is quite regular. His pulse feels full. EKG looks normal. ASSESSMENT: Cardiac arrhythmia, probable PVCs. PLAN: We will want to get a 24-hour Holter monitor. He has already gone off of caffeine and he said that really did not really seem to help much, but will find out more when we look at the Holter monitor to let him know what further he should do to evaluate that. TT: CT: DJA:[id number] C: DOCUMENT: [id number] Elieser Rao DPM - 09/29/2001 12:01 AM CDT Progress Notes signed by Elieser Ingram DPM at 10/18/01 1457 Author: Elieser Ingram DPM Service: (none) Author Type: Physician Filed: 06/11/10 0804 Note Time: 09/29/012021 Status: Signed Division Chair: Elieser Ingram DPM (Physician) IMPRESSION: Capsulitis second MPJ left foot with pronation syndrome. SUBJECTIVE: CHIEF COMPLAINT: Patient presents for initial clinic visit. He believes that there is a bump on the bottom of his left foot. He has had pain here for a little over a month. He has the two areas marked. This does bother him mainly with activities. He denies any injury or trauma. MEDS: He is not taking medications. ADR/ALLERGIES: HE DENIES ALLERGIES TO MEDICATIONS. OBJECTIVE: EXTREMITIES: Patient is neurovascularly intact. He has the area sub-second MPJ on the left marked as well as an area at the plantar base of the medial second toe. There is no pain with palpation of this particular area, however, there is pain with palpation of the second MPJ. Dorsal to plantar compression will produce pain. There is pain with attempted range of motion of the second digit. There is no mass or soft tissue swelling identified. No pain with range of motion of the foot or ankle. X-rays obtained today failed to show any obvious bony abnormality in this area. He does have significant arthritic changes at the left great toe which is apparently previous trauma. In stance there is some loss of longitudinal arch evident. ASSESSMENT: Capsulitis second MPJ left foot with pronation syndrome. PLAN: Treatment options were discussed with the patient. I discussed the condition in great detail. I discussed with him that it appears to be an inflammation in the joint and he does not have any history of trauma. I discussed an insert to pad the area and take the pressure off the second metatarsal head. I dispensed Naprosyn 500 milligrams 1 p.o. b.i.d. with food. He can ice the area. He will follow up with me p.r.n. basis. TT: CT: ALP:[id number] C: DOCUMENT: [id number] Conversion, [facility] - 07/03/2001 12:01 AM CDT Phone Note signed by at 07/03/01 0808 Author: [facility] Conversion Service: (none) Author Type: (none) Filed: 06/11/10 0603 Note Time: 07/03/01 0001 Status: Signed Division Chair: Matheus Conversion IMPRESSION: headache/chicken pox TO: LORRAINE MENSAH FROM: KATHLEEN PIEDRA [id number] 07/03/01 * PROVIDER MESSAGE: RETURN * 08:17AM * CALL REQUESTED * MESSAGE: pt of Vik, has had chix * HOME PHONE:[phone] * pox since Tuesday, and started * WORK PHONE:[phone] * valtrex, has had a constant * CONTACT PHONE:[phone] * headache since 06/27, tylenol and * mati- or Fernando * advil does not help, wonders what * PHARMACY: [phone] * he can do, lays down d/t nausea * [place] * when he gets up, and unab le to sleep d/t headache, wonders what he can do about this, please ca ll with plan rates a 5 on a scale of 1-10 SUBJECTIVE: ALLERGIES/SENSITIVITIES... nkda 07/03/01 CURRENT MEDICATIONS... valtrex, tylenol 07/03/01 PERTINENT PAST HISTORY... HEALTHY 07/03/01 WEIGHT: ASSESSMENT: headache/chicken pox PLAN: DISPOSITION: NO DISPOSITION GIVEN CALL BY KATHLEEN PIEDRA 07/03/2001 08:12AM [id number] ADDENDUM: <> 07/03/2001 09:41AM by YOAN GILES: Per pt may have Rx for Tylenol #3, 1-2 tabs po q 4 h, prn pain,#30. Rx called to pharmacy and pt notified. [facility] Conversion, [facility] - 06/30/2001 12:01 AM CDT Phone Note signed by at 06/30/01 4845 Author: Matheus Conversion Service: (none) Author Type: (none) Filed: 06/11/10 0600 Note Time: 06/30/01 0001 Status: Signed Division Chair: Matheus Conversion IMPRESSION: chicken pox TO: GEETHA CHERY FROM: MARIBEL SIMPSON [id number] 06/30/01 * PROVIDER MESSAGE: ROUTINE * 05:06PM * *WITHIN 4 HOURS * MESSAGE: says has * HOME PHONE:[phone] * chicken pox. 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 He started w ith fever * PHARMACY: [phone] * yesterday and generally not feeling * [address] * well. Today red spots clement ve come out, now on face, back and chest. They are starting to itch. She is asking to get the antiviral med to help with the illness. Pls let her know. I told her I would try to get call through today. If she does not hear back within the hour, she should call again. SUBJECTIVE: ALLERGIES/SENSITIVITIES... nkda 06/30/01 CURRENT MEDICATIONS... none 06/30/01 PERTINENT PAST HISTORY... Healthy 06/06/99 06/30/01 WEIGHT: ASSESSMENT: chicken pox PLAN: DISPOSITION: NO DISPOSITION GIVEN CALL BY MARIBEL SIMPSON 06/30/2001 04:57PM [id number] ADDENDUM: <> 07/03/2001 09:39AM by YOAN GILES: Rx given by on 06-30-01 for Valtrex 1 gm tid x 7 d. Joel Rosenthal MD - 06/14/2001 12:01 AM CDT Progress Notes signed by at 04/14/02 0001 Author: Joel May MD Service: (none) Author Type: (none) Filed: 06/11/10 0538 Note Time: 06/14/012021 Status: Signed Division Chair: Joel May MD (Physician) IMPRESSION: Left otitis media. SUBJECTIVE: No dictation. OBJECTIVE: N/A ASSESSMENT: Left otitis media. PLAN: Treatment: Amoxicillin. TT: CT: THOMAS:[id number] C: DOCUMENT: [id number] Geetha Christie - 02/28/2001 12:01 AM CST Progress Notes signed by at 04/14/022021 Author: Geetha Chery MD Service: (none) Author Type: Physician Filed: 06/11/10 0307 Note Time: 02/28/012021 Status: Signed Division Chair: Geetha Chery MD (Physician) IMPRESSION: Preop exam. SUBJECTIVE: Fernando is in today for a preoperative exam. He is having a nasal septoplasty done by Dr. Goldstein at [facility] on 03/06/01. His history and physical today show no contraindications to either the anesthesia or procedure being planned. A copy of the form is made for the chart, and the form is then faxed to the hospital. OBJECTIVE: N/A ASSESSMENT: Preop exam. PLAN: N/A TT: CT: DJA:[id number] C: DOCUMENT: [id number] Sammy Espinosa MD - 02/27/2001 12:01 AM CST Progress Notes signed by at 04/12/02 1231 Author: Sammy Goldstein MD Service: (none) Author Type: (none) Filed: 06/11/10 0303 Note Time: 02/27/012021 Status: Signed Division Chair: Matheus Miranda IMPRESSION: X SUBJECTIVE: Recheck for septoplasty. Reviewed septoplasty risks and goals, as well as turbinate cautery. He understands. Long discussion regarding aftercare, risks and goals of surgery. He understands and wishes to proceed. Will schedule. OBJECTIVE: N/A ASSESSMENT: N/A PLAN: N/A TT: CT: JOYCELYN:[id number] C: DOCUMENT: [id number] Sammy Espinosa MD - 08/12/2000 12:01 AM CDT Progress Notes signed by at 03/10/02 4311 Author: Sammy Goldstein MD Service: (none) Author Type: (none) Filed: 06/10/10 2310 Note Time: 08/12/00 0001 Status: Signed Division Chair: Matheus Conversion SUBJECTIVE: Thnfmn-wmzet-thqf-old with a chief complaint of nasal obstruction and postnasal drainage seen at the request of Dr. Freda Martell, allergy department. The patient is here with main complaint of nasal obstruction, as well as thick postnasal drainage. He has no allergies, and no vasomotor symptoms. He is aware of nasal trauma at age 10 [address] was performed in May. I reviewed this. It demonstrates a deviated septum and turbinate hypertrophy, left greater than right in a left anterior mucosal cyst that is small. That is asymptomatic on questioning. Past medical history and review of systems reviewed on FACE sheet that was last updated on December 1999. I reviewed it as well. He has used Vancenase without much benefit. REVIEW OF SYSTEMS: Negative for sleep apnea and asthma. OBJECTIVE: Exam shows ears are clear. Nose shows a septal deflection, left side, with no visible nasal airway. Turbinate is hypertrophic on that side. Right side shows mild compensatory inferior turbinate hypertrophy. Nasopharynx is clear. Oral cavity and oropharynx negative. Hypopharynx and larynx, neck, and parotid glands negative. ASSESSMENT: Deviated septum, turbinate hypertrophy, unresponsive to nasal steroids. PLAN: Reviewed risks and goals of septoplasty turbinate reduction with him in some length. He understands and may wish to proceed. He will call to schedule. CC: FREDA MARTELL MD JOYCELYN:[id number] C: DOCUMENT: [id number] Freda Hinton MD - 05/27/2000 12:01 AM CDT Progress Notes signed by Freda Martell MD at 03/09/01 1020 Author: Freda Martell MD Service: (none) Author Type: Physician Filed: 06/10/10 2148 Note Time: 05/27/00 0001 Status: Signed Division Chair: Freda Martell MD (Physician) IMPRESSION: Chronic sinusitis with a nonallergic basis. Skin testing can not justify year-round symptoms. SUBJECTIVE: Fernando is a 34-year-old white male here for allergy evaluation. He describes years of sinus problems manifested by headache, plugged nose, postnasal drip, leading to changes in voice and difficulty talking, cough, clearing of his throat. Discharge tends to be creamy to yellow. Occasionally, he has rhinorrhea, itchy, dry eyes, but denies snoring, nasal pruritis. Symptoms are on and off year-round with no particular seasonal pattern. Triggers include fresh cut grass, straw. He has been given Vancenase AQ, which he uses regularly during certain times. He states at times, he thought it worked wonderful and others, did little. Trauma to his nose 15 years ago. No x-rays ever obtained. No halitosis, normal smell and taste. Fernando states the drainage is such that he has developed shortness of breath, but denies any wheezing, chest tightness, exercise intolerance. No history of adverse reactions to food, bees or ongoing skin rash. PAST MEDICAL HISTORY: Toe surgery in 1998. FAMILY HISTORY: Son with dust mite sensitivity. Sister with allergic rhinitis. ENVIRONMENTAL HISTORY: Fernando lives in a 24-year-old home. Forced air heat, central air conditioning, carpeted bedroom, no feathers. Cat for two years, in the bedroom at times. Cockapoo dog obtained last year. 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 No smoking history or ongoing exposure. MEDICATIONS: Vancenase AQ 2 sprays per naris q.d. regularly when needed. ALLERGIES: NKDA. OBJECTIVE: BP: 130/86. Ht: 71-1/2 inches. Wt: 232 pounds. GENERAL: Healthy, young male in no acute distress. SKIN: Warm and dry. HEENT: Eyes, conjunctivae clear. PERRLA. Ears, canals patent, TMs normal. Nose normal. Oropharynx clear. Teeth and gums in good repair. NECK: Supple without adenopathy. Thyroid not enlarged. LUNGS: Clear with good air movement. No wheezes, rales, rhonchi. CV: Regular rate and rhythm, normal S1, S2. No murmurs, rubs, or gallops. Skin testing positive to maple tree only. ASSESSMENT: Chronic sinusitis with a nonallergic basis. Skin testing can not justify year-round symptoms. Will obtain CT scan and withhold empiric treatment pending formal diagnosis. PLAN: 1. Sinus CT scan scheduled for June 01, at 1:15 p.m. at the imaging center at [place]. Patient will be notified. 2. Determine followup and treatment based on results of scan. [facility]:[id number] C: DOCUMENT: [id number] Remington Reyna DPM - 02/16/2000 12:01 AM CST Progress Notes signed by Remington Jaime DPM at 03/03/00 1611 Author: Remington Jaime DPM Service: (none) Author Type: Physician Filed: 06/10/102000 Note Time: 02/16/00 0001 Status: Signed Division Chair: Remington Jaime DPM (Physician) IMPRESSION: Recurrent paronychias, bilateral nail borders, bilateral SUBJECTIVE: The patient presents to clinic with complaint of chronic ingrown toenails most commonly on the left hallux lateral nail border. These have been debrided down several times in the past and they continue to recur every few months. He would like to have a permanent nail procedure done. He currently denies any erythema or active drainage. MEDICATIONS: Inhaler, unknown name. NO KNOWN DRUG ALLERGIES. OBJECTIVE: GENERAL: This is a 34-year-old male with a healthy appearance, no acute distress. INSPECTION: Pedal pulses are palpable bilaterally. Distal neurologic sensation appears grossly intact bilaterally. Range of motion of the ankle, rearfoot, midfoot, and forefoot is within normal limits without pain or crepitation. There is no erythema, edema, ulcerations, or open wounds noted. Bilateral nail borders and bilateral hallux's are incurvated with the most significant pain on the left hallux lateral nail border. There is tenderness on palpation of the border today. There is no erythema, edema, ulceration, or open wound, active or expressed drainage present. ASSESSMENT: Recurrent paronychias, bilateral nail borders, bilateral hallux. PLAN: I discussed treatment options and alternatives with the patient who wishes to undergo a P and A but only to the left hallux lateral nail border today. After an alcohol and Betadine prep, an injection of 3 cc of 2% lidocaine plain was infiltrated into the base of the left hallux. After achieving anesthesia, the lateral nail border was avulsed, four 1-minute applications of phenol was applied to the exposed nail matrix, alcohol flush and Betadine dressing. Aftercare was discussed with the patient. I will have him return to clinic in two to four weeks. Call with any problems. [facility]:[id number] C: DOCUMENT: [id number] Geetha Christie - 01/19/2000 12:01 AM CST Progress Notes signed by Geetha Chery MD at 01/21/00 0835 Author: Geetha Chery MD Service: (none) Author Type: Physician Filed: 06/10/10 1934 Note Time: 01/19/002021 Status: Signed Division Chair: Geetha Chery MD (Physician) IMPRESSION: Ingrown toenail. SUBJECTIVE: This is a patient who has an ingrown nail on his left foot. OBJECTIVE: It is draining some material that appears infected. He was started on some Keflex 500 t.i.d., warm soaks and referred to podiatry for repair of this. Dr. Ansari did a repair of another nature on his foot and he would prefer probably to go back to him if possible. ASSESSMENT: Ingrown toenail. PLAN: N/A DEYANIRA:[id number] C: DOCUMENT: [id number] Jered Alexandre MD - 10/16/1999 12:01 AM CDT Progress Notes signed by Jered Ellison MD at 07/22/01 1408 Author: Jered Ellison MD Service: (none) Author Type: Physician Filed: 06/10/10 1806 Note Time: 10/16/99 0001 Status: Signed Division Chair: Jered Ellison MD (Physician) IMPRESSION: Finger contusion. SUBJECTIVE: This is a 34-year-old male who hit his finger with a hammer one week ago, seen in Urgent Care, told he might have a fracture and splinted and told to follow up in orthopaedics. Patient has removed his splint. Says he has full range of motion. Still has pain over the dorsum of his finger. Otherwise has no complaints. No numbness, tingling, or weakness. MEDICATIONS: None. ALLERGIES: NONE. MAJOR MEDICAL PROBLEMS: None. 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 OBJECTIVE: GENERAL: No acute distress. Inspection, no deformity or signs of trauma. There is tenderness to palpation over the dorsal aspect of the proximal phalanx. Patient has full range of motion, full extension, full flexion. There is no laxity at the MTP, PIP and DIP joint. There is full range of motion at all these joints. Sensation is grossly intact. Cap refill is good. ASSESSMENT: Finger contusion. PLAN: Patient to continue with range of motion. Ice t.i.d., q.i.d. p.r.n. Return with any loss of range of motion, numbness, tingling, pain or if pain does not resolve in two to three weeks or any other acute changes. CC: KULWANT GUAN MD LW:[id number] C: DOCUMENT: [id number] Kulwant Guan MD - 10/07/1999 12:01 AM CDT Progress Notes signed by at 04/14/022021 Author: Kulwant Guan MD Service: (none) Author Type: Physician Filed: 06/10/10 1754 Note Time: 10/07/992021 Status: Signed Division Chair: Kulwant Guan MD (Physician) IMPRESSION: Possible finger fracture. SUBJECTIVE: The patient is a 34-year-old male who hit his left second finger three weeks ago with a hammer along the proximal phalanx. It hurt initially, then the pain and swelling went away and he did seem better. Then in the last week or so he has had increasing swelling, pain, along the site of the original injury. NO KNOWN DRUG ALLERGIES. No medications. Otherwise healthy. No prior injuries, otherwise to his finger. OBJECTIVE: T: 97.5. P: 70. R: 18. BP: 138/88. Alert, well-appearing, no apparent distress. Slight swelling over the dorsal surface of the proximal phalanx of the left second finger. He has full range of motion on flexion, extension at the MCP, PIP and DIP joints. Distal sensation is intact and there is brisk capillary refill in the finger. Nose there is slight point tenderness of the distal part of the proximal phalanx along the dorsomedial surface. An x-ray was obtained and it looked like there was a small fracture line of the distal part of the proximal phalanx of this finger. ASSESSMENT: Possible finger fracture. PLAN: The patient was put in an Alumafoam splint in slight flexion in all of the joints of the finger. Will follow up in Orthopedics in five days for a recheck and to get the x-ray results and decide whether any further splinting or management is needed. DSR:[id number] C: DOCUMENT: [id number] ER SKIN DIVER Lawrence Luque MD - 08/30/1999 12:01 AM CDT Progress Notes signed by Lawrence Luque MD at 09/08/99 1940 Author: Lawrence Luque MD Service: (none) Author Type: Physician Filed: 06/10/10 1716 Note Time: 08/30/99 0001 Status: Signed Division Chair: Lawrence Luque MD (Physician) IMPRESSION: Right shoulder tendonitis SUBJECTIVE: Patient is a 34-year-old male who injured his right shoulder in 1996 while he was throwing a salt pile. He heard a pop and burning that got better on its own. About four days ago he was lifting something and he felt the same pop. His fourth finger on the right hand on the volar surface on the right lower arm also will go numb intermittently, but not right now. He has been trying to stretch. He takes occasional aspirin and ibuprofen. Denies any weakness at this time. ALLERGIES: NONE. MEDICATIONS : Nasal spray. OBJECTIVE: T: 96.9. BP: 140/90. P: 60. R: 16. Full range of motion of the shoulder. Light touch and pinprick are intact at this time. Reflexes are intact. X-ray to my reading is negative. ASSESSMENT: Right shoulder tendonitis. PLAN: Ibuprofen 600 mg three to four times a day. Follow up with orthopedics. JEV:[id number] C: DOCUMENT: [id number] Lorraine Talley - 06/08/1999 12:01 AM CDT Progress Notes signed by Lorraine Mensah MD at 06/10/99 0820 Author: Lorraine Mensah MD Service: (none) Author Type: Physician Filed: 06/10/10 1602 Note Time: 06/08/99 0001 Status: Signed Division Chair: Lorraine Mensah MD (Physician) IMPRESSION: Distal phalanx fracture left thumb. SUBJECTIVE: This 33-year-old struck his left thumb with a hammer one week ago. Developed hematoma beneath the nailbed, but no throbbing sensation. The symptoms had improved, instead the tip of his thumb is numb. OBJECTIVE: BP: 122/82. T: 98.4. W: 223. Left thumb shows a small subungual hematoma. Distal sensation intact, somewhat decreased. PIP with full range of motion. No tenderness. X-ray shows a fracture at the tip of the phalanx, which is only minimally displaced and appears more like an avulsion fracture instead of transverse fracture. The area of the hematoma was touched with a hot tip without return of blood. ASSESSMENT: Distal phalanx fracture left thumb. PLAN: Metal U-shaped protector placed. Tylenol or Motrin p.r.n. Return if numbness sensation does not improve after two to four weeks. KH:[id number] C: DOCUMENT: [id number] ER SKIN DIVER Conversion, [facility] - 06/06/1999 12:01 AM CDT Phone Note signed by at 06/06/99 7134 Author: Imr Conversion Service: (none) Author Type: (none) Filed: 06/10/10 1601 Note Time: 06/06/99 0001 Status: Signed Division Chair: Imr Conversion IMPRESSION: Finger trauma-(adult)-nurse guidelines - REFERRED PATIENT TO URGENT CARE AT [facility] * HOME PHONE: [phone] * SUBJECTIVE: * WORK PHONE: [phone] * PATIENT COMPLAINS OF... Finger trauma, calling states pt hit his thumb with a hammer approx 1 week ago, thumb is bruised and has been numb for a couple days.; -Symptoms of circulatory impairment ALLERGIES/SENSITIVITIES... NKA 06/06/99 CURRENT MEDICATIONS... None 06/06/99 PERTINENT PAST HISTORY... Healthy 06/06/99 ASSESSMENT: Finger trauma-(adult)-nurse guidelines DISPOSITION: EMERGENCY PLAN: RECOMMENDED THE FOLLOWING... Referenced guideline Finger trauma-(adult)-nurse guidelines. Direct to UC, or refer to ER if clinic is closed -Use ice pack to apply pressure for 20 minutes, followed by cool compresses to reduce swelling until appointment -Elevate finger above the level of the heart Patient information given per Finger trauma nurse guideline. INFORMED PATIENT TO CALLBACK IF... Reasons to call back reviewed- caller verbalizes understanding of the need to call back for the following reasons: -Symptoms persist after 2-3 days of home management -Symptoms of infection -Any other questions or concerns Call taken by REYMUNDO MCDOWELL RN [phone] 06/06/1999 04:03 PM ADDENDUM: Geetha Christie - 05/15/1999 12:01 AM CST Progress Notes signed by Geetha Chery MD at 05/18/99 0820 Author: Geetha Chery MD Service: (none) Author Type: Physician Filed: 06/10/10 1541 Note Time: 05/15/99 0001 Status: Signed Division Chair: Geetha Chery MD (Physician) IMPRESSION: Hypertension consult. SUBJECTIVE: Fernando comes in today because he was at the dentist the other day and was found to have a blood pressure of 145/90. He has not been symptomatic and looking at his past he has had an occasional episode where his pressure has been borderline. OBJECTIVE: N/A ASSESSMENT: Hypertension consult. PLAN: At this point, we spent some time talking about the need for weight control, regular exercise, salt restriction, and regular monitoring of his blood pressure and he will let me know if there are any persistent elevations in that. DEYANIRA:[id number] C: DOCUMENT: [id number] Geetha Christie - 05/05/1999 12:01 AM CST Progress Notes signed by Geetha Chery MD at 05/07/99 1525 Author: Geetha Chery MD Service: (none) Author Type: Physician Filed: 06/10/10 1532 Note Time: 05/05/99 0001 Status: Signed Division Chair: Geetha Chery MD (Physician) IMPRESSION: Seborrhea. SUBJECTIVE: Fernando is in today because he has been having some irritation on his face over the past year. It is sort of a brownish scaling, rather pruritic at times area that gets worse when he washes with warm water and soap. OBJECTIVE: Findings now shows that he does have what appears to be a seborrhea involving the area around the alar crease about just above his eyebrows, a little on his scalp and some in the perioral region. ASSESSMENT: Seborrhea. PLAN: We will treat that with Nizoral cream 2% b.i.d. for four weeks and then followup p.r.n. DEYANIRA:[id number] C: DOCUMENT: [id number] Geetha Vazquez MD - 02/09/1999 12:01 AM CST Progress Notes signed by Geetha Guo MD at 03/23/99 1524 Author: Geetha Guo MD Service: (none) Author Type: Physician Filed: 06/10/10 1413 Note Time: 02/09/99 0001 Status: Signed Division Chair: Geetha Guo MD (Physician) IMPRESSION: Chronic rhinitis/vasomotor rhinitis. SUBJECTIVE: The patient was in December, supposedly had sinusitis and headaches, nosebleeds. He stated he did get some help from nasal steroid spray. His last evaluation was a month ago, and he did well. He is out of that medication now. The patient's history is one of continual blockage of his nose. He states it switches from side to side, changes with weather, temperature. OBJECTIVE: BP1: 128/90. BP2: 138/92. T: 97. Wt: 223 pounds. Exam at this time showed a plugged left nostril from swelling. He states two days ago it was his right nostril. There is no purulent drainage. Neck is negative. Chest and lungs were clear. ASSESSMENT: Chronic rhinitis/vasomotor rhinitis. PLAN: The patient was given a choice of Entex LA versus a nasal spray. He chose the spray. He was started on Vancenase nasal spray, one or two puffs each nostril daily. If not doing well, would give him a try of Entex LA b.i.d. RAMÍREZ:[id number] C: DOCUMENT: [id number] ER SKIN DIVER Geetha Chery - 01/02/1999 12:01 AM CST Progress Notes signed by Geetha Chery MD at 01/05/99 1316 Author: Geetha Chery MD Service: (none) Author Type: Physician Filed: 06/10/10 8337 Note Time: 01/02/99 0001 Status: Signed Division Chair: Geetha Chery MD (Physician) IMPRESSION: Chronic rhinitis and sinusitis. SUBJECTIVE: Fernando is in today because he has been having about a one year history of problems with nasal blockage, postnasal drainage, and some watery eyes. He has not had any particular workup or treatment for this. OBJECTIVE: Wt: 222. BP: 114/84. He is a nonsmoker. 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 Neither he nor his are smokers. Examination of his ears shows that the left canal was occluded with cerumen. This was irrigated free. Both drumheads appear normal. His nasal mucosa was rather boggy and his pharynx shows a clear postnasal drainage. ASSESSMENT: Chronic rhinitis and sinusitis. PLAN: He was put on Nasonex inhalations, two sprays each nostril once a day for the next two weeks. He will let me know if there is recurrence of this and would advise an allergy referral if that is the situation. CC: DEYANIRA:[id number] C: DOCUMENT: [id number] Crissy So MD - 10/20/1998 12:01 AM CDT Progress Notes signed by Crissy Randall MD at 11/06/98 1138 Author: Crissy Randall MD Service: (none) Author Type: Physician Filed: 06/10/10 1218 Note Time: 10/20/98 0001 Status: Signed Division Chair: Crissy Randall MD (Physician) IMPRESSION: Ingrown toenail improving. SUBJECTIVE: The patient is a 33-year-old male here for a recheck of a wound on his left toe. He was seen last week by Noel Finney who removed the lateral portion of his left great toenail where it had become ingrown. She had some difficulty achieving full anesthesia with a digital block (this has been his pattern) and so instead of removing the lateral third, removed the distal portion which was ingrown. He was also put on antibiotics. He has had significant improvement in his symptoms. There is no any further redness, swelling or pain. He is here today for further evaluation. OBJECTIVE: healthy appearing 33-year-old male in no distress. Blood pressure 112/88. Left great toe with some chronic skin inflammatory changes over the lateral distal corner of his toenail. The toenail has been trimmed to well within the border of the inflamed skin and the entire nail is visible. There is no tenderness to palpation, no redness or pain. Normal sensation is evident. He does have a well healed surgical scar over the mid shaft of his toe where he has had previous surgery. ASSESSMENT: Ingrown toenail treated, now improved. PLAN: I would like him to soak his foot twice a day for 15 to 20 minutes in warm soapy water and he able to completely visualize the nail as it grows out. He understands that it needs to grow out even to the toe before he trims it and the hidden corner, which he previously experienced is what causes the ingrown toenail. If this continues to recur, I would suggest removing the lateral third of the toenail. CC: EWELINA:[id number] C: DOCUMENT: [id number] Lizeth Randall PA-C - 10/15/1998 12:01 AM CDT Progress Notes signed by Lizeth Randall PA-C at 12/03/98 1712 Author: Lizeth Randall PA-C Service: (none) Author Type: Physician Client Onboarding Analyst Filed: 06/10/10 1213 Note Time: 10/15/98 0001 Status: Signed Division Chair: Lizeth Randall PA-C (Physician Client Onboarding Analyst) IMPRESSION: Ingrown toenail partial removal. SUBJECTIVE: The patient is a 33-year-old white male who comes in with an ingrown toenail of the left first toe. This is on the lateral aspect. He has never had anything like this before, and he states this has been there for about the last two weeks. He does know that he cuts his toenail way too short on that side and subsequently developed this painful toenail. He has done any treatment for it as of yet. Current medications: None. ALLERGIES: No known drug allergies. OBJECTIVE: BP: 130/84. P: 64. GENERAL: Obese white male in no acute distress. LOWER EXTREMITIES, LEFT FOOT: There is erythema, edema on the lateral aspect of the first digit toenail. There is no evidence of any discharge at this time. There is tenderness with palpation of that area. The patient would like to proceed with toenail partial removal procedure. Area was cleansed with betadine and then 6 cc of lidocaine without epinephrine was injected for a digital block. The patient has a history of difficulty with lidocaine use in the extremities. For other procedures that he has had done, it takes quite a while to numb his extremity. This is experienced also today. Under sterile technique, the lateral most edge of the toenail was removed with scissors and hemostats. This relieves quite a bit of pressure and pain for the patient. Still no evidence of any discharge or exudates. Area was then dressed with bacitracin, and gauze dressing was put in place. The patient tolerated the procedure well. ASSESSMENT: Ingrown toenail removal. PLAN: 1. Procedure as stated above. 2. The patient was given Keflex 500 mg q.i.d. for seven days. 3. The patient is to keep the wound area clean and dry and was given wound and infection precautions. 4. He is to follow up on Tuesday with another practitioner for a wound check. CC: DOMINIQUE:[id number] C: DOCUMENT: [id number] Dre Ansari - 08/12/1998 12:01 AM CDT Progress Notes signed by Dre Ansari DPM at 10/24/98 1024 Author: Dre Ansari DPM Service: (none) Author Type: (none) Filed: 06/10/10 1112 Note Time: 08/12/98 0001 Status: Signed Division Chair: Dre Ansari DPM (Physician) IMPRESSION: Six months status-post enclavement procedure, left with hallux IPJ debridement. SUBJECTIVE: The patient returns approximately six months status-post enclavement procedure left as well as hallux IPJ debridement. He is doing well overall, not having really any discomfort. Normal activities and no limitations of activity. No problems with his shoe gear. OBJECTIVE: Examination reveals the first MTP joint range of motion to 45 degrees dorsiflexion without discomfort and no crepitus. Hallux IPJ does have some limited flexion but is nontender without crepitus. There is mild post surgical fibrosis still remaining. ASSESSMENT: Six months status-post enclavement procedure, left with hallux IPJ debridement. PLAN: Discussed the expected continued postoperative course with regard to the remodeling. We will have him monitor. He seems to be doing quite well. He could be slightly more aggressive on the range of motion exercises for the first MTP joint. I would like to see him back in the next four to six months if there is any remaining concern, otherwise he will follow-up p.r.nChung MOFFETT:[id number] C: DOCUMENT: [id number] ER SKIN DIVER Conversion, [facility] - 08/06/1998 12:01 AM CDT Phone Note signed by at 08/06/98 0659 Author: Imr Conversion Service: (none) Author Type: (none) Filed: 06/10/10 1106 Note Time: 08/06/98 0001 Status: Signed Division Chair: Matheus Conversion IMPRESSION: Sore Throat-(Adult)-Nurse Guidelines - PHARMACY: [phone] Meghan Valentin/ [facility] * HOME PHONE: [phone] * SUBJECTIVE: * WORK PHONE: [phone] * PATIENT COMPLAINS OF... Sore * CONTACT PHONE: [phone] * throat, sudden onset, denies * Fernando * cough or cold. Sx. x 4 days. Afebrile. Unable to see back of throat. Has used lozenges with no relief. ; PATIENT DENIES... -Denies urgent or semi-urgent symptoms ALLERGIES/SENSITIVITIES... NKA 08/06/98 CURRENT MEDICATIONS... None 08/06/98 PERTINENT PAST HISTORY... Healthy 08/06/98 ASSESSMENT: Sore Throat-(Adult)-Nurse Guidelines DISPOSITION: HOME CARE PLAN: RECOMMENDED THE FOLLOWING... Referenced guideline Sore Throat-(Adult)-Nurse Guidelines. Schedule appointment on nurses schedule for a strep screen if patient is established. -Take acetaminophen or ibuprofen as directed -Gargle with warm salt water or ice water -Use hard candies, ice or cough drops to soothe throat -Increase liquids to 8-10 regular glasses each day. Juice and water are best. Cool beverages or warm liquids are most soothing. -Eat soft foods or suck on flavored frozen desserts -Get extra rest so the body can use it's natural resources to recuperate -Improve room humidity with a cool mist vaporizer Patient information given per Sore Throat nurse guidelines. INFORMED PATIENT TO CALLBACK IF... Reasons to call back reviewed- caller verbalizes understanding of the need to call back for the following reasons: -Breathing or swallowing becomes difficult -Any other questions or concerns MISC COMMENTS... Pt. requested appt. at location 12. Call taken by JENA BURNETTE RN [phone] 08/06/1998 06:52 AM ADDENDUM: ER SKIN DIVER Julieth Tidwell - 06/18/1998 12:01 AM CDT Progress Notes signed by Julieth Tidwell MD at 06/22/98 0916 Author: Julieth Tidwell MD Service: (none) Author Type: Physician Filed: 06/10/10 1016 Note Time: 06/18/98 0001 Status: Signed Division Chair: Julieth Tidwell MD (Physician) IMPRESSION: Preop exam. SUBJECTIVE: Problem: Preop exam. Please see preop form. This is workman's compensation. Another form for that was also completed. OBJECTIVE: N/A ASSESSMENT: N/A PLAN: N/A [facility] [place]:[id number] C: DOCUMENT: [id number] Dre Jewell - 05/06/1998 12:01 AM CST Progress Notes signed by Dre Ansari DPM at 07/23/98 0910 Author: Dre Ansari DPM Service: (none) Author Type: (none) Filed: 06/10/10 0929 Note Time: 05/06/98 0001 Status: Signed Division Chair: Dre Ansari DPM (Physician) IMPRESSION: Nine weeks status post enclavement procedure, left. SUBJECTIVE: Yaneli Santiago returns approximately nine weeks status post enclavement procedure, left. He is doing quite well overall. He is having minimal discomfort. He is ambulating without difficulty. OBJECTIVE: Exam reveals first metatarsophalangeal joint range of motion, left, to 50 degrees dorsiflexion and 5 degrees of plantar flexion. The hallux IPJ shows 15 to 20 degrees plantar flexion and to neutral dorsiflexion. He is slightly stiff otherwise and no discomfort. Mild postsurgical fibrosis, slightly more than normal and attributable to the patient's increased activity. ASSESSMENT: Nine weeks status post enclavement procedure, left. PLAN: Continue with increasing activities and range of motion exercises aggressively. Will see him back in three months for recheck or sooner if there are problems. stc ER SKIN DIVER Conversion, [facility] - 04/30/1998 12:01 AM CST Phone Note signed by at 04/30/98 3798 Author: Imr Conversion Service: (none) Author Type: (none) Filed: 06/10/10 0922 Note Time: 04/30/982021 Status: Signed Division Chair: Matheus Conversion IMPRESSION: Sinus congestion-(adult)-nurse guidelines - PHARMACY: [phone] STEVEN Goodwin SUBJECTIVE: * HOME PHONE: [phone] * PATIENT COMPLAINS OF... Sinus * WORK PHONE: [phone] * congestion, for 7 or more * CONTACT PHONE: [phone] * days, interferes with ADL's, accompanied by 2 or more of the following symptoms: Has had sinus congestion, headache, post nasal drip x 10 days and requesting antibiotic.; -Facial or sinus pain, made worse by bending over or straining -Post nasal drip with sore throat and/or cough -Headache (frontal) -Nasal speech -Denies urgent or semi-urgent symptoms ALLERGIES/SENSITIVITIES... NKA 08/27/97 CURRENT MEDICATIONS... none 08/27/97 PERTINENT PAST HISTORY... healthy 08/27/97 ASSESSMENT: Sinus congestion-(adult)-nurse guidelines DISPOSITION: HOME CARE PLAN: STANDING ORDERS IMPLEMENTED... Amoxicillin: 500 mgm tid x 10 days (o) RECOMMENDED THE FOLLOWING... Referenced guideline Sinus congestion-(adult)-nurse guidelines. Call prescription to pharmacy as directed by [facility] Physician Standing Orders -Improve room humidity with a cool mist vaporizer -Increase fluid intake -Elevate head when resting and sleeping -Take steamy showers -Apply warm compresses or heating pad to sinus area -Take analgesic of choice as directed on package -Use saline drops or nasal spray for nasal congestion -Use OTC decongestants for relief of drainage and congestion -Avoid cigarette smoke or extremely cool or dry air Patient information given per Sinus Congestion nurse guidelines. INFORMED PATIENT TO CALLBACK IF... Reasons to call back reviewed- caller verbalizes understanding of the need to call back for the following reasons: -Symptoms worsen after 48 hours of medication -Symptoms not resolved after completion of medication -Any other questions or concerns MISC COMMENTS... Rx called in to [facility] Call taken by JAYJAY DORADO RN [phone] 04/30/1998 03:37 PM ADDENDUM: ER SKIN DIVER Dre Ansari - 04/15/1998 12:01 AM CST Progress Notes signed by Dre Ansari DPM at 07/23/98 0854 Author: Dre Ansari DPM Service: (none) Author Type: (none) Filed: 06/10/10 0906 Note Time: 04/15/98 0001 Status: Signed Division Chair: Dre Ansari DPM (Physician) IMPRESSION: Five weeks status post enclavement procedure, left. SUBJECTIVE: Yaneli Santiago The patient returns approximately five weeks status post enclavement procedure, left. Is doing quite well overall. He is having no problems. He has been increasing his activity without problems. OBJECTIVE: Exam revealed the incision line to be well-healed, remodeling nicely. There is a fair amount of postsurgical fibrosis/thickness in the area of the first MTP joint. Left range of motion is 50 to his dorsiflexion, 5 degrees of plantar flexion without discomfort, no crepitus noted. Radiographs obtained this visit show continued consolidation at the osteotomy site. ASSESSMENT: Five weeks status post enclavement procedure, left. PLAN: Reviewed the x-rays with the patient. We will have him continue to increase activity, do range of motion exercises. We will see him back in three to four weeks for recheck, sooner if there are problems. OSCAR/[id number]/15/mag Dre Porras - 04/01/1998 12:01 AM CST Progress Notes signed by Dre Ansari DPM at 07/23/98 0849 Author: Dre Ansari DPM Service: (none) Author Type: (none) Filed: 06/10/1049 Note Time: 04/01/98 0001 Status: Signed Division Chair: Dre Ansari DPM (Physician) IMPRESSION: Four weeks status post enclavement procedure with hallux interphalangeal joint debridement, left. SUBJECTIVE: Yaneli Santiago returns approximately four weeks status post enclavement procedure, left. He is doing quite well overall. He states he has been off his foot a bit more than the last visit. He completed the antibiotics without problems. OBJECTIVE: Examination reveals the dressing to be intact. Upon removal there is decreased erythema. There is still a fair amount of edema and postsurgical fibrosis. First metatarsal-phalangeal joint range of motion is to 45 degrees of dorsiflexion, 5 degrees of plantar flexion. There is minimal motion at the hallux interphalangeal joint but there is no tenderness with the motion present. The incision site is completely healed and remodeling nicely. ASSESSMENT: Four weeks status post enclavement procedure with hallux interphalangeal joint debridement, left. PLAN: 1. Continue with gradual increasing activities as he feels comfortable. 2. He should ice and elevated as much as possible and do range of motion exercises. 3. We will see him back in two weeks for a recheck. std Dre Porras - 03/10/1998 12:01 AM CST Progress Notes signed by Dre Ansari DPM at 03/21/98 1247 Author: Dre Ansari DPM Service: (none) Author Type: (none) Filed: 06/10/10 0823 Note Time: 03/10/98 0001 Status: Signed Division Chair: Dre Ansari DPM (Physician) IMPRESSION: Five days status post enclavement procedure with hallux interphalangeal joint debridement left. SUBJECTIVE: Yaneli Santiago returns five days status post, doing quite well overall. He did notice that the dressing did have some drainage on it. Otherwise he has been doing fine. He denies nausea, vomiting, fever or chills. OBJECTIVE: Exam reveals the dressing to be intact, slightly moist with drainage. Upon removal the incision line is intact. There is mild serous drainage from the area just dorsal to the first MTP joint. No evidence of purulence. He has mild dull erythema in this area. The incision lines are otherwise intact at all aspects. First MTP joint range of motion to 50 degrees dorsiflexion, 10 degrees plantar flexion with minimal discomfort. ASSESSMENT: Five days status post enclavement procedure with hallux interphalangeal joint debridement left. PLAN: Betadine and clean dressing was applied. The patient will continue with limited activities, ice and elevation, and range of motion exercises for the first MTP joint several times daily. He was placed on Keflex 500 mg b.i.d. We will see the patient in 1-1/2 weeks, sooner if problems. stp Julieth Gee - 02/26/1998 12:01 AM CST Progress Notes signed by Julieth Tidwell MD at 03/04/98 1142 Author: Julieth Tidwell MD Service: (none) Author Type: Physician Filed: 06/10/10 0811 Note Time: 02/26/98 0001 Status: Signed Division Chair: Julieth Tidwell MD (Physician) IMPRESSION: Preop. SUBJECTIVE: PROBLEM: Preop, left podiatric surgery. See form. OBJECTIVE: N/A. ASSESSMENT: N/A. PLAN: N/A. [facility] Dre Porras - 12/09/1997 12:01 AM CDT Progress Notes signed by Dre Ansari DPM at 12/19/97 1128 Author: Dre Ansari DPM Service: (none) Author Type: (none) Filed: 06/10/10 0653 Note Time: 12/09/97 0001 Status: Signed Division Chair: Dre Ansari DPM (Physician) IMPRESSION: Degenerative changes, first metatarsophalangeal joint and hallux interphalangeal joint, left. SUBJECTIVE: Yaneli Santiago is here for a return visit with continued complaint of pain in the hallux IPJ and first MTP joint of the left foot. He states that the pain has persisted since the last visit. At this point he is interested in proceeding with surgical intervention. He continues to be in good health overall. MEDICATIONS: Denies. ADVERSE DRUG REACTIONS: Denies. OBJECTIVE: Exam reveals pedal pulses palpable. Distal sensorium intact. There is continued tenderness with crepitus at the hallux IPJ mostly on the dorsal aspect, left. The joint is somewhat widened, especially medially. The first MTP joint on the left foot shows a fair amount of widening. There is limited motion, especially dorsally with jamming at the dorsal end range of motion and discomfort. Radiographs reviewed from previous date shows some narrowing of the first MTP joint and hallux IPJ but fairly good joint architecture overall. There is some osteophyte formation, especially within the first MTP joint dorsally and to a lesser extent the IPJ. ASSESSMENT: Degenerative changes, first metatarsophalangeal joint and hallux interphalangeal joint, left. PLAN: I discussed continued treatment options. He would like to proceed with surgical intervention. I discussed the tentative procedure for debridement of the hallux IPJ and the first MTP joint left. At this point in light of the radiographs, I would not expect an arthrodesis to be a part of the plan, although it is a possibility at the first MTP joint. This was also discussed with the expected postoperative course if this is necessary. We will otherwise try performing an enclavement procedure at the first MTP joint to increase the range of motion. All questions were answered. Pros, cons, risk and potential complications are discussed. He will contact the surgery schedulers to arrange this. qte ER SKIN DIVER Dre Ansari - 10/07/1997 12:01 AM CDT Progress Notes signed by Dre Ansari DPM at 10/16/97 1009 Author: Dre Ansari DPM Service: (none) Author Type: (none) Filed: 06/10/10 0554 Note Time: 10/07/97 0001 Status: Signed Division Chair: Dre Ansari DPM (Physician) IMPRESSION: Hallux interphalangeal joint and first metatarsophalangeal joint degenerative changes, left. SUBJECTIVE: Return visit for Yaneli Santiago. Follow-up pain in the great toe joint of the left foot. States he had been doing better after the last visit. Now this has gotten much worse and is limiting his activity. Feels better with stiff-soled shoes that are lace-up, worse with sandals or with poor-fitting shoes. Also reports that the tinea pedis had resolved after the last visit with the use of the Spectazole cream. The injection given on the last visit did give a fair amount of relief but has gotten worse again recently. OBJECTIVE: Exam reveals pedal pulses to be palpable, distal sensorium is intact. There continues to be significant tenderness with crepitus at the hallux interphalangeal joint left. The first metatarsophalangeal joint left also shows some similar findings, but to a lesser degree. There is mild widening of the first metatarsophalangeal joint as well. Radiographs obtained this visit show evidence of irregularity of the hallux interphalangeal joint and first metatarsophalangeal joint, left foot. The joint space appears fairly normal. There has been minimal narrowing. ASSESSMENT: Hallux interphalangeal joint and first metatarsophalangeal joint degenerative changes, left. PLAN: Discussed continued treatment options with the patient. The x- rays were reviewed. He was placed on a Medrol Dosepak to be taken as directed for the next six days. Should follow that with Daypro 600 mg two tabs once daily with food for an additional three weeks. Should ice, wear lace-up supportive shoes with stiff soles as much as possible, limit irritating factors. Will see him back in four to six weeks if there is continued discomfort to discuss surgical alternatives. stw Julieth Gee - 08/30/1997 12:01 AM CDT Progress Notes signed by Julieth Tidwell MD at 09/04/97 0827 Author: Julieth Tidwell MD Service: (none) Author Type: Physician Filed: 06/10/10 0521 Note Time: 08/30/972021 Status: Signed Division Chair: Julieth Tidwell MD (Physician) IMPRESSION: Torus mandibularis. SUBJECTIVE: Yaneli Santiago noted prominences on either side of the inside of his distal mandible one month ago while at work. He felt a little irritation on the floor of his mouth and touched it with his tongue. It was as if he had burned himself drinking coffee, but did not recall doing so. When he looked he saw these prominences which concerned him. There was perhaps a little pinkish irritation over one of them, but that quickly resolved over a day or so. The lumps continue to be present, and in his recall, may have been present for years of his whole life, he is not sure, just wanted them checked. He is having no problems with his tongue or chewing at this time. MEDICATIONS: None. ADVERSE DRUG REACTIONS: None. OBJECTIVE: BP: 142/90 left arm large cuff There is an evident torus mandibularis moderate in size with no overlying oral mucosal change. There is a small torus palatinus as well. There appeared to be no true bony lesions or pathology in the oral cavity. No cervical adenopathy. ASSESSMENT: Torus mandibularis. PLAN: Reassured. He will observe and contact us if there is change or symptoms. I suggested a blood pressure check or CPE in the next three to four months as well. stp Conversion, [facility] - 08/27/1997 12:01 AM CDT Phone Note signed by at 08/27/97 1855 Author: Matheus Conversion Service: (none) Author Type: (none) Filed: 06/10/10 0517 Note Time: 08/27/972021 Status: Signed Division Chair: Matheus Conversion IMPRESSION: mouth lesions TO: JULIETH TIDWELL FROM: PEPE RODRIGUEZ 08/27/1997 * PROVIDER MESSAGE: ROUTINE * 09:13PM * *WITHIN 4 HOURS * MESSAGE: Requsting to see Dr Tidwell * HOME PHONE: [phone] * for mouth lesions on Tuesday after * WORK PHONE: [phone] * 2 if possible. Call home number * CONTACT PHONE: [phone] * and leave a message. * Yaneli * SUBJECTIVE: CHIEF CONCERN... Patient with 4 lumps on inside of cheeks, 2 on both sides and are painful at times, wants to have evaluated on Tuesday if possible. ALLERGIES/SENSITIVITIES... NKA 08/27/97 CURRENT MEDICATIONS... none 08/27/97 PERTINENT PAST HISTORY... healthy 08/27/97 WEIGHT: Not Available ASSESSMENT: mouth lesions PLAN: DISPOSITION: NO DISPOSITION GIVEN Call taken by PEPE RODRIGUEZ 08/27/1997 09:11 PM ADDENDUM: <> 08/28/1997 09:48AM by LOGAN DONOVAN: appt. made tuesday at 3pm with dr. tidwell. ER SKIN DIVER Viry Dewey - 06/20/1997 12:01 AM CDT Progress Notes signed by Viry Dewey at 06/25/97 1901 Author: Viry Dewey Service: (none) Author Type: Resource Filed: 06/10/10 0417 Note Time: 06/20/97 0001 Status: Signed Division Chair: Viry Dewey (Resource) IMPRESSION: Low back pain, probably inflammation of the SI joints. SUBJECTIVE: This 31-year-old patient presents today with a one-month history of low back pain which at times radiates into his thighs bilaterally. States that one month ago he was helping someone move for 10 hours, and despite trying to use good body mechanics did have stiffness in his back the next day. One week ago noticed a sharp pain when he was bending over that radiated to the buttock area, into the upper thighs, and lasted around 30 seconds and became concerned. Is not involved in any sports or aerobic exercise but does have two children, ages 4 years and 6 months, which he lifts frequently. Denies any change in strength or sensation of the legs and has no prior history of a back problem. Is on no regular medications. Has no drug allergies. OBJECTIVE: On examination there is no tenderness to percussion of the vertebral column or paraspinal muscles. He does have acute tenderness in the left SI joint, less so in the right SI joint. No sciatic nerve tenderness. Straight leg raising is normal. Range of motion of the back reveals discomfort in the left lower back with sideward bending. Strength, sensation, and reflexes are normal bilaterally as well as range of motion of the hips. He is able to heel-toe walk. ASSESSMENT: Low back pain, probably inflammation of the SI joints. PLAN: Given handout on the back with thorough discussion on use of anti-inflammatories, stretching exercises, and ice. Given prescription for ibuprofen 600 mg, #56, one q.i.d. with food x2 weeks. If symptoms are not improving within a two-week period of time, we may need to refer him to Physical Therapy. cc: Julieth Tidwell M.D., [facility] Conversion, [facility] - 06/19/1997 12:01 AM CDT Phone Note signed by at 06/19/97 9184 Author: Matheus Conversion Service: (none) Author Type: (none) Filed: 06/10/10 0415 Note Time: 06/19/97 0001 Status: Signed Division Chair: Matheus Conversion IMPRESSION: Back pain:low-(adult)-nurse guidelines - TREATING PROVIDER: CHELSEY, VIRY Karimi NP * HOME PHONE: [phone] * - Appointment made with CHELSEY, * WORK PHONE: [phone] * VIRY Karimi NP Jun 20 1997 2:15PM SUBJECTIVE: PATIENT COMPLAINS OF... Mild to moderate low back pain, has had back pain for the past month since he helped with moving furniture. States used good body mechanics. Pain only occurs with bending or squatting and is a sharp, shooting pain that goes into his upper legs. Has only taken occ. Tylenol or Ibuprofen. Ice has not been helpful.; -Pain that extends into the buttocks or the upper leg -Exertion injury -Any urgent or semi-urgent symptoms ALLERGIES/SENSITIVITIES... NKA 06/19/97 CURRENT MEDICATIONS... none 06/19/97 PERTINENT PAST HISTORY... healthy 06/19/97 ASSESSMENT: Back pain:low-(adult)-nurse guidelines DISPOSITION: HOME CARE PLAN: RECOMMENDED THE FOLLOWING... Referenced guideline Back pain:low-(adult)-nurse guidelines. -Use anti-inflammatory medications like ibuprofen or aspirin (See OTC Medication Reference) Patient information given per Low Back Pain nurse guidelines. INFORMED PATIENT TO CALLBACK IF... -Any other questions or concerns MISC COMMENTS... Pt. requested appt. to eval. Call taken by EARLENE FLOWERS RN [phone] 06/19/1997 02:45 PM ADDENDUM: ER SKIN DIVER Conversion, [facility] - 02/19/1997 12:01 AM CST Phone Note signed by at 02/19/97 0842 Author: Matheus Conversion Service: (none) Author Type: (none) Filed: 06/10/10 0225 Note Time: 02/19/97 0001 Status: Signed Division Chair: Matheus Miranda IMPRESSION: infection on hand TO: SHARDALISA VALENTINE FROM: JACI MILLAN 02/19/1997 * PROVIDER MESSAGE: APPT * 08:42AM * NEEDED * MESSAGE: Unable to book at T. * HOME PHONE: [phone] * Patient awaits call back for * WORK PHONE: [phone] * appt. times. * CONTACT PHONE: [phone] * SUBJECTIVE: * Yaneli * CHIEF CONCERN... Patient calling back regarding infection on right that is spreading. Receive call from [facility] yesterday suggesting appt for then. Patient was out of town and got message late last night. Available today for appt. ALLERGIES/SENSITIVITIES... NKA 02/19/97 CURRENT MEDICATIONS... none 02/19/97 PERTINENT PAST HISTORY... OM 02/19/97 WEIGHT: 0 ASSESSMENT: infection on hand PLAN: DISPOSITION: NO DISPOSITION GIVEN INFORMED PATIENT TO CALLBACK IF... any questions or concerns Call taken by JACI MILLAN 02/19/1997 08:37 AM ADDENDUM: <> 02/19/1997 09:42AM by ISAÍAS GALLEGOS RN: Pt calling back wondering if can get an appointment for today yet. States would like it specifically with Dr. Valentine if possible, informed pt that Dr. Valentine is not in clinic today. Pt states would like appt with anyone in [facility] , if possible today, as hand getting really itchy. Informed pt he might be referred to if no appt avail. Pt stated understanding. LCT--Pt requests appt with anyone FP 1P. Please call and advise. Home# [phone]--PMD is MEME. Pt aware he is not avail today. <> 02/19/1997 10:00AM by JUAN F HENAO: advised patient that no appointments are available at the [place] [facility] today and suggested that he go to urgent care. ER SKIN DIVER Conversion, [facility] - 02/19/1997 12:01 AM CST Progress Notes signed by at 12/09/97 0121 Author: [facility] Conversion Service: (none) Author Type: (none) Filed: 06/10/10 0225 Note Time: 02/19/97 0001 Status: Signed Division Chair: Matheus Conversion IMPRESSION: Probable impetigo. SUBJECTIVE: Was seen a couple of months ago for a rash on his right hand believed to be bacterial infection and treated with cephalexin with good results. That rash resolved very promptly when he started on the antibiotic and remained clear for several weeks. Now it has recurred. OBJECTIVE: He has several patches no more than a centimeter in diameter on his fingers of his right hand. They are generally circular and denuded. Some with a light brownish crust. ASSESSMENT: Probable impetigo. PLAN: Will treat again with cephalexin at slightly higher dose this time at 500 mg t.i.d. for 10 days. [facility] SCHEDULED RESOURCE: CRISSY NELSON MD ER SKIN DIVER Conversion, [facility] - 02/18/1997 12:01 AM CST Phone Note signed by at 02/18/97 4128 Author: [facility] Conversion Service: (none) Author Type: (none) Filed: 06/10/10 0224 Note Time: 02/18/97 0001 Status: Signed Division Chair: Matheus Miranda IMPRESSION: Hand infection flaring SUBJECTIVE: PATIENT COMPLAINS OF... * HOME PHONE: [phone] * calling from [employer], states that * WORK PHONE: [phone] * has flare-up of infection on hand again. Redness starts on back of one hand, blister forms and then breaks open. Would like an appt for tomorrow with Dr. Tidwell. ALLERGIES/SENSITIVITIES... NKA 02/18/97 CURRENT MEDICATIONS... Steroid cream for athletes foot 02/18/97 PERTINENT PAST HISTORY... OM 02/18/97 ASSESSMENT: Hand infection flaring DISPOSITION: SEMI-URGENT PLAN: [facility] [place] COM[place]... Transferred to medical office scheduler to make an appt. Will be back in town tomorrow. Call taken by CHUCKIE SANCHEZ RN [phone] 02/18/1997 07:12 AM ADDENDUM: <> 02/18/1997 07:38AM by REYMUNDO RODRIGUEZ: appointment made with [facility] for 02-20-97 for 10:30 am; patient aware of md status. patient is out of town and will not be back until 02-19-97 APPOINTMENT MADE. <> 02/20/1997 07:34AM by ALEC PORTER: pt. seen in u/c on 02/19. ER SKIN DIVER Dre Ansari - 02/11/1997 12:01 AM CST Progress Notes signed by Dre Ansari DPM at 02/22/97 5805 Author: Dre Ansari DPM Service: (none) Author Type: (none) Filed: 06/10/10 0220 Note Time: 02/11/97 0001 Status: Signed Division Chair: Dre Ansari DPM (Physician) IMPRESSION: Hallux interphalangeal joint degenerative arthritis left, tinea pedis. SUBJECTIVE: Yaneli Santiago returns for follow-up of hallux interphalangeal joint degenerative arthritis left. He is also concerned about the worsening tinea pedis. He has been treated in the past with Lotrisone with only mild improvement. He states the discomfort in the left great toe joint has not been activity limiting but has been noticeable. OBJECTIVE: Examination reveals that pedal pulses are palpable. Distal sensorium is intact. Continued mild tenderness with crepitus with range of motion of the hallux interphalangeal joint left. Multiple areas of interdigital fissuring and erythema consistent with that of chronic tinea pedis. ASSESSMENT: 1. Hallux interphalangeal joint degenerative arthritis left. 2. Tinea pedis. PLAN: 1. We will have him continue to monitor the left hallux. If there is persistent discomfort we would consider more long-term treatment options of arthrodesis versus arthroplasty. 2. I suggested that at this point he use ibuprofen p.r.n. for the discomfort. 3. With regard to the chronic tinea, he was placed on Spectazole cream to be applied once daily until resolved. He should use hydrocortisone cream p.r.n. for the redness and itching. std ER SKIN DIVER Ruben [facility] - 01/11/1997 12:01 AM CST Phone Note signed by at 01/11/97 2467 Author: Matheus Miranda Service: (none) Author Type: (none) Filed: 06/10/10 0154 Note Time: 01/11/97 0001 Status: Signed Division Chair: Matheus Miranda IMPRESSION: fungal like rash - TREATING PROVIDER: JULIETH TIDWELL - Appointment made with JULIETH TIDWELL * HOME PHONE: [phone] * Jan 11 1997 2:05PM * WORK PHONE: [phone] * SUBJECTIVE: PATIENT COMPLAINS OF... Was on Lotrisone ungt for 2 weeks for fungal infection on feet which cleared up. Now has the same fungal like rash on feet and both hands. Pt would like to be seen. ALLERGIES/SENSITIVITIES... NKA 01/11/97 CURRENT MEDICATIONS... None 01/11/97 PERTINENT PAST HISTORY... OM 01/11/97 ASSESSMENT: fungal like rash DISPOSITION: NO DISPOSITION GIVEN PLAN: Call taken by EDITH ARORA RN [phone] 01/11/1997 01:34 PM ADDENDUM: Julieth Gee - 01/11/1997 12:01 AM CST Progress Notes signed by Julieth Tidwell MD at 01/16/97 5747 Author: Julieth Tidwell MD Service: (none) Author Type: Physician Filed: 06/10/10 0154 Note Time: 01/11/97 0001 Status: Signed Division Chair: Julieth Tidwell MD (Physician) IMPRESSION: Probable bacterial infections of fingers. SUBJECTIVE: PROBLEM: Check finger rash. In the past four days, the patient had developed initially small, slightly tender blisters on two fingers which concern him. He was recently treated for tinea pedis with Lotrisone with good resolution of that problem, he states. When he first noted a small sore blister on the dorsal aspect of the right thumb distal phalanx level, he began to apply some Lotrisone to it, and the rash seemed to spread, and ultimately the blister ruptured, there was the question of some purulence, and it is now a smoldering inflammation in the region. He is also developing a similar initial blister-like lesion on the left ring finger flexor aspect near his ring. MEDICATIONS: Recent Lotrisone cream. ADVERSE DRUG REACTIONS: Allergies none. OBJECTIVE: There is a slightly inflamed developing pustule at the flexor aspect of the left ring finger proximal phalanx, and there is a diffuse nickel-sized area of erythema with mild swelling and question of some impetiginization on the dorsal aspect of the proximal distal phalanx region of the right thumb which does not involve the nail. ASSESSMENT: Probable bacterial infections of fingers. PLAN: Keflex 500 mg b.i.d. 10 days. Betadine scrub routinely. We discussed contagion issues. I advised stopping the Lotrisone as the cortisone component may have flared this somewhat. He will recheck with me in 10 days if the problem is not resolved. There were no obvious contact-inciting agents. ejl ER SKIN DIVER Tamanna De Guzman MD - 12/11/1996 12:01 AM CDT Progress Notes signed by Tamanna De Guzman MD at 05/15/97 1818 Author: Tamanna De Guzman MD Service: (none) Author Type: Physician Filed: 06/10/10 0125 Note Time: 12/11/96 0001 Status: Signed Division Chair: Tamanna De Guzman MD (Physician) IMPRESSION: Tinea pedis. SUBJECTIVE: Zneppd-nadx-gqnk-old man came to the clinic for evaluation of a rash on the right foot. Patient reports onset several months ago. Has tried several toen-nhv-mwwxsgh medications for athlete's foot, which appeared initially to resolve some of his symptoms, but then found it did not completely eradicate it. Patient then thought skin was dry and used Vaseline for it. Both of these treatments were ineffective. Patient reports pruritus. MEDICATIONS: Current medications none. ADVERSE DRUG REACTIONS: No known drug allergies. TOBACCO USE: None. OBJECTIVE: BP1: 118/72. T: 96.4. Right foot erythematous, peeling of skin primarily between toes, first and second, second and third, and third and fourth. A small amount of rash has extended onto the top of the foot. ASSESSMENT: Tinea pedis. PLAN: Gave patient Lotrisone cream two samples and a prescription for a 15-gram tube to apply to area b.i.d. x2 weeks. If no improvement or symptoms are worsening, patient is to contact me. ejl ER SKIN DIVER Conversion, [facility] - 11/20/1996 12:01 AM CDT Progress Notes signed by at 12/09/97 5386 Author: Imr Conversion Service: (none) Author Type: (none) Filed: 06/10/10 0108 Note Time: 11/20/962021 Status: Signed Division Chair: Imr Conversion IMPRESSION: Left ring finger mass, probable thrombosed blood vessel. SUBJECTIVE: Yaneli Santiago is a 31-year-old right hand-dominant gentleman referred by Dr. Stewart for evaluation of left ring finger mass. The patient has noticed a mass present over the volar aspect of his ring finger, overlying the proximal interphalangeal joint, for about two months. He first noticed it when he put his hand down upon a bleacher. Since that time he has occasionally bumped the finger and finds it slightly tender. He has not noticed any restriction of motion or change in sensibility. 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 He had this surgically removed with no complications or recurrence. He has had no previous problems with his left hand and recalls no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
--- OUTSIDE RECORDS SUMMARY | 2021-12-24 15:43 | XMS_ITS | Encounter Summary ---
:1965 Author Organization [facility] Address [address] [place] [address] Care Team Providers Name Role Phone Unavailable Primary Care Provider Unavailable Encounter Details Date Type Department Care Team Description 03/05/1998 Hospital Encounter [facility] Dre Ansari DPM [address] [place], [place] [id number] [address] [place] DPM [address] [place] [address] [place] [address] Social History Tobacco Use Types Packs/Day Years Used Date Smoking Tobacco: Never Assessed Sex Assigned at Date Recorded Not on file documented as of this encounter Procedure Notes Dre Ansari - 03/06/1998 12:01 AM CST OR Surgeon signed by Distribute Print And at 01/28/99 1200 Author: Dre Ansari DPM Service: (none) Author Type: Physician Filed: 06/10/10 0820 Note Time: 03/06/982007 Status: Signed Commercial Intelligence Manager: Dre Ansari DPM (Physician) [id number] OPERATIVE REPORT DATE OF : 69 DATE OF PROCEDURE: 03/05/98 Surgeon: Dre Ansari D.P.M. 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 POSTOPERATIVE DIAGNOSIS: Same. OPERATIVE PROCEDURE: 1. Enclavement procedure first metatarsophalangeal joint with subchondral drilling and wire fixation. 2. Debridement hallux interphalangeal joint, left. ANESTHESIA: IV sedation with local. PREOPERATIVE MEDICATIONS: Ancef 1 gram preoperatively. INDICATIONS: Patient with progressively worsening pain especially with limited motion and painful motion at the first metatarsophalangeal joint of the left as well as the hallux interphalangeal joint of the left foot. Does have a history of a kicking trauma several years prior. All conservative options have been exhausted and it was elected to proceed with surgical intervention. The procedure was discussed in detail and consent was obtained. PROCEDURE: The patient was brought into the operating room and placed on the table in the supine position. Under IV sedation, the left foot was anesthetized in the form of a Levy block utilizing 10 cc of a 1:1 mixture of 0.5% Marcaine plain and 2% lidocaine plain. The left foot was prepped and draped in the usual aseptic manner. It was exsanguinated with an esmarch bandage and the pneumatic ankle tourniquet was inflated to 250 mmHg. Attention was directed to the dorsomedial aspect of the left forefoot where a 4 cm incision was made extending from the distal diaphyseal CONTINUATION OF OPERATIVE REPORT PAGE 2 area of the first metatarsal to the base of the first proximal phalanx. This incision was deepened to the level of the joint capsule with care being taken to identify and retract vital structures. The capsule was incised within the length of the initial skin incision after which it was freed from the medial and dorsal aspect of the first metatarsal head and the base of the first proximal phalanx, but there was a fair amount of loose bony fragments within the joint itself noted when the dorsal capsule was freed. These were all removed from the joint. Further inspection of the joint revealed a loose osteophyte/old fracture fragment at the dorsal base of the first proximal phalanx. This was bluntly isolated and excised. There was moderate degenerative changes noted within the first metatarsophalangeal joint at this point. It was elected to proceed with the enclavement procedure at this point in light of the moderate changes. The capsule and periosteum were freed slightly more distal from the base of the first proximal phalanx after which an oseteotomy was performed from dorsal to plantar slightly distal to the articular cartilage of the base of the first proximal phalanx. The base section was then freed from the shortening soft tissue and removed from the wound. A second osteotomy was performed just distal to the first parallel to it. The degenerative changes in the first metatarsal head were identified. The loose cartilaginous flaps were beveled with a 15 after which subchondral drilling was performed in all areas of exposed bone. The operative site was irrigated with sterile saline. The previous removed base of the first proximal phalanx was placed back into the wound in anatomic position. Good bone apposition was noted between the two cut bone surfaces. The base was then fixated on the remaining portion of the first middle phalanx using two 0.045 K-wires applied in a cross fashion. Stable fixation was noted upon placement of the K-wires with good bone apposition. The joint range of motion after closure of the capsule with simple technique of 3-0 Vicryl was noted to approximately 50 degrees dorsiflexion with no crepitus noted at this time. It should be noted that care was taken to identify and ensure that the sesamoid articular complex had adequate motion. The skin was closed using horizontal mattress technique of 5-0 nylon. The previously placed K-wires were stabilized, bent and cut. Attention was then directed to the area overlying the hallux IPJ where a lazy-S incision was made in the transverse fashion centered over it. The incision was deepened through skin to the level of the underlying subcutaneous tissue which was blunted away from the extensor tendon. The extensor tendon was then transected at the level of the IPJ and reflected slightly proximal and distal. The degenerative changes were CONTINUATION OF OPERATIVE REPORT PAGE 3 noted primarily at the medial articular surfaces of the head of the first proximal phalanx. There was a small amount of osteophyte noted as well. The prominent areas were smoothed using a hand rasp after which subchondral drilling was performed using a 0.035 K-wire. The remainder of the joint was inspected and noted to be in excellent condition. There was no crepitus noted following completion of the joint debridement. The site was irrigated with sterile saline. The extensor tendon was reapproximated using simple technique of 3-0 Vicryl. The skin was closed using horizontal mattress technique of 5-0 nylon. Dexamethasone phosphate, 1.5 cc, was injected postoperatively between both operative sites. A sterile compression dressing consisting of Adaptic, 4 x 4's and Barbara was applied to the left forefoot. Upon completion of the procedure and release of the pneumatic ankle tourniquet, all digits to the left foot were noted to be well perfused. The patient tolerated the procedure and anesthesia well and was transported to the [facility] in stable condition and will be followed on an outpatient basis. DP /[id number] SIGNED: DRE ANSARI D.P.M. 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.8 PROCEDURES Provider Date Principal: METATARSOPHALANGEAL FUS 81.16 Secondary: DESTRUC-FOOT JT LES NEC 80.88 CPT4 Principal: FUSION OF BIG TOE JOINT 68716 Secondary: EXCISION OF FOOT LESION 89105 documented in this encounter Plan of Treatment Upcoming Encounters Date Type Specialty Care Team Description 12/25/2021 Appointment Vascular Surgery Gloria Quinones MD [address] [facility] N [address] (Wo rk) 12/25/2021 Appointment Vascular Surgery Nurse, [id number] Vsurg documented as of this encounter Procedures Procedure Name Priority Date/Time Associated Comments Diagnosis CONVERSION DEFAULT Routine 03/05/1998 7:46 AM Res ults for this INTERFACE ORDER APPAREL EMBROIDERY DIGITIZER procedure ar e in the results section. documented in this encounter Results Conversion Default Interface Order (03/05/1998 7:46 AM APPAREL EMBROIDERY DIGITIZER) [facility] Method Time Signature Surgical See Detail HP CONVERSION Pathology Comment: Patient: ROLF SANTIAGO ? SURGICAL PATHOLOGY REPORT Pathology # ??[id number] ?Date Obtained: ?Date Received: DIAGNOSIS: ? Bony tissue, first MTP joint left foot, debridement: ? - Benign cartilaginous soft tissu e fragments. ? Norman Mast M.D. ? (electronic signature) DAG/DAG/amf Date of Report: 03/07/98 Pathology # ??[id number] ?Date Obtained: ?Date Received: ORGAN/TISSUE SITE: ? Bony fragments 1st metatarsophala ngeal joint of left foot GROSS DESCRIPTION: ? Received in formalin are small, w austin fragments of bony tissue together ? measuring 8 x 4 x 2 mm. ??Entirel y embedded. DAG/bjw MICROSCOPIC DESCRIPTION: ? The sections show fragments of fi brocartilaginous and hyaline cartilage ? tissue. ??One of the fragments is necrotic and hyalinized. ??The other ? fragments are poorly viable. Specimen (Source) Anatomical Collection Method Collection Time Re ceived Time Location / / Volume Laterality 03/05/1998 7:46 AM APPAREL EMBROIDERY DIGITIZER Dre Ansari DPM LAB_1 Performing Organization Address City/State/ZIP Code Phon e Number HP CONVERSION documented in this encounter Visit Diagnoses Not on filedocumented in this encounter
--- OUTSIDE RECORDS SUMMARY | 2021-12-24 15:43 | XMS_ITS | Encounter Summary ---
:1965 Author Organization [facility] Address [address] [address] Care Team Providers Name Role Phone Unavailable Primary Care Provider Unavailable Encounter Details Date Type Department Care Team Description 12/21/2001 Hospital Encounter Confucianist Cardio Katya Chery J [facility] [address] [facility] [address] [place] [id number] [phone] Social History Tobacco Use Types Packs/Day Years Used Date Smoking Tobacco: Never Assessed Sex Assigned at Date Recorded Not on file documented as of this encounter Plan of Treatment Upcoming Encounters Date Type Specialty Care Team Description 12/25/2021 Appointment Vascular Surgery Gloria Quinones MD [address] [facility] N [address] (Wo rk) 12/25/2021 Appointment Vascular Surgery Nurse, [id number] Vsurg documented as of this encounter Procedures Procedure Name Priority Date/Time Associated Diagnosis Comme nts 24 HOUR HOLTER Routine 12/19/2001 2:40 PM Results for this MONITOR JUNIOR ACCOUNTANT procedure are i n the results section. documented in this encounter Results 24 Hour Holter Monitor (12/19/2001 2:40 PM JUNIOR ACCOUNTANT) Specimen (Source) Anatomical Collection Method Collection Time Re ceived Time Location / / Volume Laterality 12/19/2001 2:40 PM JUNIOR ACCOUNTANT Narrative HP CONVERSION - 12/19/2001 2:40 PM JUNIOR ACCOUNTANT ?Normal sinus rhythm with sinus bradycardia and sinus tachycardia. ? Heart rates from 50-131 bpm. ? Occasional isolated pvc's (654). ?Rare isolated pac's (10). ?Patient listed in diary frequent s ymptoms of heart skipping. ??Symptoms correlated ? with normal sinus rhythm with iso lated pvc's. ?Further details and waveforms avai lable at [phone]. Confirmed by: R. ?Beebto Noyola Kevin Chery PN ECG ORDERABLES Performing Organization Address City/State/ZIP Code Phon e Number HP CONVERSION documented in this encounter Visit Diagnoses Not on filedocumented in this encounter
--- OUTSIDE RECORDS SUMMARY | 2021-12-24 15:43 | XMS_ITS | Encounter Summary ---
:1965 Author Organization [facility] Address [address] [place] [address] Care Team Providers Name Role Phone Unavailable Primary Care Provider Unavailable Encounter Details Date Type Department Care Team Description 11/26/2005 Office Visit [facility] [place] [address] [facility] [address] [place] [address] [place] [address] Social History Tobacco Use Types Packs/Day Years Used Date Smoking Tobacco: Never Assessed Sex Assigned at Date Recorded Not on file documented as of this encounter Last Filed Vital Signs Vital Sign Reading Time Taken Comments Blood Pressure 119/77 11/26/2005 9:46 AM CDT Pulse 62 11/26/2005 9:46 AM CDT Temperature 36.4 ??C (97.5 ??F) 11/26/2005 9:46 AM ORAL C: 3 6.4 C CDT Respiratory Rate 16 11/26/2005 9:46 AM CDT Oxygen Saturation - - Inhaled Oxygen Concentration - - Weight - - Height - - Body Mass Index - - documented in this encounter Progress Notes Kevin Guo MD - 11/26/2005 12:01 AM CDT Progress Notes signed by Kevin Guo MD at 12/06/05 1140 Author: Kevin Guo MD Service: (none) Author Type: Physician Filed: 06/12/10 1441 Note Time: 11/26/05 0001 Status: Signed Claims Customer Service Representative: Kevin Guo MD (Physician) NAME: ROLF SANTIAGO MR: [id number] ACCT: [id number] VISIT: [id number] DICTATING CLINICIAN: Kevin Guo MD JOB: [id number] LOC: 520 CLINIC PROGRESS NOTE DATE OF VISIT: 11/26/2005 SUBJECTIVE: : 1965. The patient is here for a left ear discomfort, feels stuffy. Has had problems with ear wax obstruction in the past. He does have to use some ear plugs at work. OBJECTIVE: VS: BP: T: P: R: Wt: Negative right ear with no wax. Left ear is totally plugged with cerumen. This was irrigated clear. The ear drum behind this is normal. He has no otitis externa of significance. He has no findings in his neck, although he does complain of some minor neck discomfort, as well. Throat was negative, as well. ASSESSMENT: Ceruminosis. PLAN: Discussed irrigation of his ear on a yearly basis. TO use ear muffs instead of plugs if he keeps having problems. DRL:[id number] C: 11/27/05 00:38 DOCUMENT: [id number] documented in this encounter Plan of Treatment Upcoming Encounters Date Type Specialty Care Team Description 12/25/2021 Appointment Vascular Surgery Gloria Quinones MD [address] [place] [address] (Wo rk) 12/25/2021 Appointment Vascular Surgery Nurse, [id number] Jason documented as of this encounter Visit Diagnoses Not on filedocumented in this encounter
--- OUTSIDE RECORDS SUMMARY | 2021-12-24 15:43 | XMS_ITS | Encounter Summary ---
:1965 Author Organization [facility] Address [address] [place] [address] Care Team Providers Name Role Phone Unavailable Primary Care Provider Unavailable Encounter Details Date Type Department Care Team Description 12/31/2005 Office Visit [facility] [place] [address] [place] [address] [place] [address] [phone] Social History Tobacco Use Types Packs/Day Years Used Date Smoking Tobacco: Never Assessed Sex Assigned at Date Recorded Not on file documented as of this encounter Plan of Treatment Upcoming Encounters Date Type Specialty Care Team Description 12/25/2021 Appointment Vascular Surgery Gloria Quinones MD [address] [facility] N [address] (Wo rk) 12/25/2021 Appointment Vascular Surgery Nurse, [id number] Vsurg documented as of this encounter Visit Diagnoses Not on filedocumented in this encounter
--- OUTSIDE RECORDS SUMMARY | 2021-12-24 15:43 | XMS_ITS | Encounter Summary ---
:1965 Author Organization [facility] Address [address] [place] [address] Care Team Providers Name Role Phone Unavailable Primary Care Provider Unavailable Encounter Details Date Type Department Care Team Description 02/12/2004 Office Visit [facility] [place] [address] [place] [address] [place] [address] [phone] (Wo rk) Social History Tobacco Use Types Packs/Day Years Used Date Smoking Tobacco: Never Assessed Sex Assigned at Date Recorded Not on file documented as of this encounter Progress Notes Nick Coleman MD - 02/12/2004 12:01 AM CST Progress Notes signed by KRISTINA Landeros at 02/13/04 1017 Author: KRITSINA Landeros Service: (none) Author Type: Physician Filed: 06/12/10 0200 Note Time: 02/12/04 0001 Status: Signed Automobile Bumper Straightener: KRISTINA Landeros (Physician) NAME: ROLF SANTIAGO MR: [id number] ACCT: [id number] VISIT: [id number] DICTATING CLINICIAN: NICK COLEMAN MD JOB: [id number] CLINIC PROGRESS NOTE DATE OF VISIT: 02/12/2004 SUBJECTIVE: Rolf is a 38-year-old male who comes in today with concerns that over the past couple of days he has developed itchiness of his hands and now swelling of both of his hands and his face. He notes that on Tuesday he did some wallpapering at his home using vinyl prepasted wallpaper. Later that night he noticed that his hands felt a bit itchy. He took a teaspoon of Benadryl 12.5 mg then and continued taking this every six hours over the next 24 hours. He noted that when he woke up today, he noted that his hands were now swollen and his face also appeared to be swollen. His lips feel a bit tingly but he has not noticed any swelling or heaviness of the tongue. He has no breathing difficulty or difficulty with swallowing. He has not noticed any rashes and notes that the itchiness does not seem to be in his legs. He is otherwise quite healthy. Has not had any problems with allergies in the past. He is not on any chronic medications and is usually quite healthy. He was accompanied today by his . OBJECTIVE: VS: BP: 124/88. P: 72 a minute. Wt: 242 lb. Pleasant male with face fairly swollen, particularly around the eyes and around the lips and cheeks. HEENT: Exam otherwise unremarkable. NECK: Supple. No adenopathy. CHEST: Clear to auscultation. No bronchospasm noted. HEART: Regular rate and rhythm. No added sounds or murmurs heard. Examination of the hands reveals some swelling of the fingers of both hands with some excoriation present on the back of the hands. No other lesions noted in the lower extremities or trunk. ASSESSMENT: Patient with an allergic reaction, likely a contact dermatitis. PLAN: At this point will place him on Medrol Dosepak to start immediately. Will have him start hydroxyzine 50 mg q.6h. for itchiness. He was advised that if he developed any difficulty with breathing or swallowing, that he should go in immediately to the emergency room. GLB:[id number] C: 02/12/04 21:56 DOCUMENT: [id number] IC WORKS DIRECTOR documented in this encounter Plan of Treatment Upcoming Encounters Date Type Specialty Care Team Description 12/25/2021 Appointment Vascular Surgery Gloria Quinones MD [address] [address] (Wo rk) 12/25/2021 Appointment Vascular Surgery Nurse, [id number] Jason documented as of this encounter Visit Diagnoses Not on filedocumented in this encounter
--- OUTSIDE RECORDS SUMMARY | 2021-12-24 15:43 | XMS_ITS | Encounter Summary ---
:1965 Author Organization [facility] Address [address], [place] [address] Care Team Providers Name Role Phone Unavailable Primary Care Provider Unavailable Encounter Details Date Type Department Care Team Description 03/11/2004 PN Conversion Only JAIN CONVERSION Social History Tobacco Use Types Packs/Day Years Used Date Smoking Tobacco: Never Assessed Sex Assigned at Date Recorded Not on file documented as of this encounter Plan of Treatment Upcoming Encounters Date Type Specialty Care Team Description 12/25/2021 Appointment Vascular Surgery Gloria Quinones MD [address] [place] N [phone] (Wo rk) 12/25/2021 Appointment Vascular Surgery Nurse, [id number] Vsurg documented as of this encounter Visit Diagnoses Not on filedocumented in this encounter
--- OUTSIDE RECORDS SUMMARY | 2021-12-24 15:43 | XMS_ITS | Encounter Summary ---
:1965 Author Organization [facility] Address [address] [place] [address] Care Team Providers Name Role Phone Unavailable Primary Care Provider Unavailable Encounter Details Date Type Department Care Team Description 01/19/2005 [facility] Shireen Armenta MD [address] [place] [address] [place] [address] [phone] (Wo rk) Social History Tobacco Use Types Packs/Day Years Used Date Smoking Tobacco: Never Assessed Sex Assigned at Date Recorded Not on file documented as of this encounter Last Filed Vital Signs Vital Sign Reading Time Taken Comments Blood Pressure 132/86 01/19/2005 2:13 PM MATHEMATICAL PHYSICIST Pulse - - Temperature 36.1 ??C (97 ??F) 01/19/2005 2:13 PM C: 36.1 C MATHEMATICAL PHYSICIST Respiratory Rate - - Oxygen Saturation - - Inhaled Oxygen Concentration - - Weight 107.5 kg (236 lb 15.9 01/19/2005 2:13 PM C: 107. 5kg oz) MATHEMATICAL PHYSICIST Height - - Body Mass Index - - documented in this encounter Progress Notes Shireen Meza MD - 01/19/2005 12:01 AM CST Progress Notes signed by Shireen Meza MD at 01/27/0529 Author: Shireen Meza MD Service: (none) Author Type: Physician Filed: 06/12/10 0825 Note Time: 01/19/05 0001 Status: Signed Signs Cleaner: Shireen Meza MD (Physician) Acute Clinic Visit IMPRESSION: Acute Otitis Media, Left SUBJECTIVE: Chief Complaint: Ears feel plugged History of Present Illness: Illness duration: 1 week Afebrile Headache Ear pain Ears feel plugged Nasal congestion/rhinorrhea Meds This Illness: No acute medications being used Past History: Adverse Drug Reactions: None Chronic Medications: None: OBJECTIVE: Vital Signs: Vital Signs taken today were reviewed on the flowsheet in LastWord. General Appearance: Well-appearing Eyes: External exam is normal bilaterally Left ear: Canal: normal, TM: red Right ear: Pinna, canal and TM normal Nose/Sinuses: mildly congested Oropharynx: Normal, mucous membranes moist, tonsils symmetric without redness or exudate. Neck: Supple without significant adenopathy or thyromegaly Respiratory: Lung sounds clear to auscultation without respiratory distress Cardiac: RRR without murmur Lab & X-Ray: None ASSESSMENT: Acute Otitis Media, Left PLAN: Amoxicillin 500 mg. TID x 10d RTC prn *SH~PC~URIL ~[place] Note completed on: 01/27/2005 9:29 AM EMATICAL PHYSICIST documented in this encounter Plan of Treatment Upcoming Encounters Date Type Specialty Care Team Description 12/25/2021 Appointment Vascular Surgery Gloria Quinones MD [address] [place] [address] (Wo rk) 12/25/2021 Appointment Vascular Surgery Nurse, [id number] Vsurg documented as of this encounter Visit Diagnoses Not on filedocumented in this encounter
--- OUTSIDE RECORDS SUMMARY | 2021-12-24 15:43 | XMS_ITS | Encounter Summary ---
:1965 Author Organization [facility] Address [address], [place] [address] Care Team Providers Name Role Phone Unavailable Primary Care Provider Unavailable Reason for Visit Reason Comments Other Encounter Details Date Type Department Care Team Description 02/12/2004 [facility]phone [facility] Nick Abad MD Other [address] [place] [address] [place] [address] [phone] (Wo rk) Social History Tobacco Use Types Packs/Day Years Used Date Smoking Tobacco: Never Assessed Sex Assigned at Date Recorded Not on file documented as of this encounter Progress Notes Delta Bansal - 02/12/2004 8:36 AM CST Phone Note filed by Delta Bansal RN at 06/08/10 4823 Author: Delta Bansal RN Service: (none) Author Type: Registered Nurse Filed: 06/08/10 1544 Note Time: 02/12/04 0836 Status: Signed Cold Rolling Supervisor: Delta Bansal RN (Registered Nurse) Message Complete, FYI only. calling. Rolf has had a rash for a few days and now his hands are very swollen and itchy. Has been taking Benadryl and Aveeno baths with no relief. Scheduled appt. with you at 10:45. Created on [id number] 8:36am by DELTA BANSAL On 12Feb2004 9:31am NICK COLEMAN wrote: OK. Acknowledged by NICK COLEMAN on 9:31am documented in this encounter Plan of Treatment Upcoming Encounters Date Type Specialty Care Team Description 12/25/2021 Appointment Vascular Surgery Gloria Quinones MD [address] [facility] N [id number] (Wo rk) 12/25/2021 Appointment Vascular Surgery Nurse, [id number] Jason documented as of this encounter Visit Diagnoses Not on filedocumented in this encounter
== END 2021-12-24 17:10 | disposition home or self-care (01) ==
PROVIDERS: Emergency Provider Family Medicine; PCP Family Medicine
DX: I80.01 Phlebitis and thrombophlebitis of superficial vessels of right lower extremity (principal)
CPT/HCPCS: 93971; 99283; 99284

== ENCOUNTER 2022-03-22 15:40 | Outpatient (CLI) | payer OTHER, SELFPAY ==
[2022-03-22 22:05] LABS: Basophils Absolute Auto 0.02 K/uL (0.00-0.30); Basophils Percent Auto 0.2 % (0.0-3.0); Eosinophils Absolute Auto 0.57 K/uL (0.00-0.50); Hematocrit 45.2 % (37.0-53.0); Hemoglobin* 15.3 gm/dL (13.5-17.5); Immature Granulocytes Abs Auto 0.04 K/uL (0.00-0.30); Immature Granulocytes Pct Auto 0.5 %; Lymphocytes Absolute Auto 1.76 K/uL (0.90-2.90); Lymphocytes Percent Auto 21.5 % (20-44); Mean Corpuscular HGB Conc 34 gm/dL (32-36); Mean Corpuscular Hemoglobin 30 pg (26-34); Mean Corpuscular Volume 88 fL (80-100); Monocytes Percent Auto 9.3 % (0.0-11.0); Neutrophils Absolute Auto 5.05 K/uL (1.7-7.0); Neutrophils Percent Auto 61.5 % (42.0-72.0); Platelet Count* 184 K/uL (140-440); RDW Coefficient of Variation % 12.1 % (11.5-15.5); Red Blood Count 5.15 m/uL (4.30-5.90)
[2022-03-22 22:13] LABS: Chloride* 105 mmol/L (96-114); Potassium* 3.9 mmol/L (3.6-5.1); Sodium* 140 mmol/L (135-149)
[2022-03-22 22:16] LABS: Blood Urea Nitrogen* 18 mg/dL (7-30); Carbon Dioxide* 26 mmol/L (20-32); Creatinine* 0.7 mg/dL (0.5-1.5); Estimated Glomerular Filt Rate 110 ml/min; Slide Review Reflex No
[2022-03-22 22:17] LABS: Calcium* 9.1 mg/dL (8.4-10.6); Glucose* 114 mg/dL (60-115)
== END 2022-03-22 15:41 | disposition home or self-care (01) ==
PROVIDERS: PCP Family Medicine; Visit Provider Family Medicine
DX: Z01.818 Encounter for other preprocedural examination (principal)
CPT/HCPCS: 80048; 85025

== ENCOUNTER 2022-09-27 10:21 | Outpatient (CLI) | payer OTHER, SELFPAY ==
--- NOTE | 2022-09-27 11:52 | W.ANESCHARGE ---
Anesthesia Charges Start Date/Time Anesthesia Start Date: 09/27/22 Anesthesia Start Time: 11:10 Stop Date/Time Anesthesia Stop Date: 09/27/22 Anesthesia Stop Time: 11:49
== END 2022-09-27 10:22 | disposition home or self-care (01) ==
LOC: OP CLINIC 10:22
PROVIDERS: PCP Family Medicine; Visit Provider Surgery
DX: Z12.11 Encounter for screening for malignant neoplasm of colon (principal); K63.5 Polyp of colon; K64.4 Residual hemorrhoidal skin tags; Z86.010 Personal history of colon polyps
CPT/HCPCS: 45385; 811; 88305; J2704